=== PATIENT | male | born 1960 | race Caucasian/White ===

== ENCOUNTER → 2016-12-20 | Outpatient (CLI) | payer OTHER ==
--- NOTE | 2016-12-20 15:25 | XR ---
Lumbar spine HISTORY: Pain 3 views of the lumbar spine, correlation to CT lumbar spine 12/05/2015 There is a mild dextroscoliosis centered at the mid lumbar spine. Multilevel spondylosis is present. Lumbar vertebral bodies show preserved height. Loss of disc height present at intervertebral levels. Sclerosis present in the posterior elements. Bone mineralization is maintained. Sclerotic changes at L3-4 with endplate irregularity again noted as well at L4-5. IMPRESSION: Degenerative disc disease, scoliosis, facet arthropathy. Lumbar MRI may be of benefit.
== END | disposition home or self-care (01) ==
LOC: RADXRMAIN 11:42
PROVIDERS: ATTEND Family Medicine
DX: M51.36 Other intervertebral disc degeneration, lumbar region (principal); M46.96 Unspecified inflammatory spondylopathy, lumbar region; M41.9 Scoliosis, unspecified
CPT/HCPCS: 72100

== ENCOUNTER → 2017-01-09 | Outpatient (CLI) | payer OTHER ==
--- NOTE | 2017-01-09 14:40 | MR ---
MR lumbar spine wo con pain Multiplanar, multiecho imaging of the lumbar spine was obtained without contrast on a 3 Iesha magnet. REFERENCE: Previous study dated 01/22/2016. FINDINGS: Paraspinal soft tissues are normal. There is a minimal retrograde listhesis of L4 and L5. Alignment is otherwise normal. The conus ends above the first slice of this study. There is a dextroscoliosis. At T12-L1, the intervertebral foramina are widely patent. There is a bilobed disc displacement. There is mild hypertrophic change and capsulitis within the facets. At L1-2, the intervertebral foramina are well maintained. There is a bilobed disc displacement more p rominent on the left effacing the thecal sac without definite neural compression. There is hypertroph ic change and capsulitis within the facets. At L2-3, the intervertebral foramina are widely maintained. There is a bilobed disc displacement. Thi s hypertrophic change and capsulitis within the facets. There is mild trefoiling of the thecal sac. At L3-4, there is disc space loss and disc desiccation. There is bilateral intervertebral foraminal n arrowing, worse on the left than the right. There is a broad-based disc displacement. There is mild l ateral recess stenosis bilaterally. There are hypertrophic changes in the facets. At L4-5, there is bilateral intervertebral foraminal narrowing, worse on the right than the left. The re is a broad-based disc displacement. This hypertrophic changes in the facets. There is bilateral la teral recess stenosis. At L5-S1, the intervertebral foramina are reasonably well-maintained. There is a broad-based disc dis placement with a tiny central protrusion effacing the thecal sac without definite neural contact. The re is bilateral lateral recess stenosis and there is hypertrophic change in the facets. IMPRESSION: 1. DIFFUSE DEGENERATIVE DISC DISEASE AND FACET ARTHROPATHY. 2. BILATERAL LATERAL RECESS STENOSIS, L4-5 AND L5-S1. 3. TINY CENTRAL PROTRUSION, L5-S1 EFFACING THE THECAL SAC WITHOUT DEFINITE NEURAL COMPRESSION. 4. MULTILEVEL INTERVERTEBRAL FORAMINAL NARROWING.
== END | disposition home or self-care (01) ==
LOC: RADMRIMAIN 13:25
PROVIDERS: ATTEND Family Medicine
DX: M48.07 Spinal stenosis, lumbosacral region (principal); M99.73 Connective tissue and disc stenosis of intervertebral foramina of lumbar region; M51.27 Other intervertebral disc displacement, lumbosacral region; M51.36 Other intervertebral disc degeneration, lumbar region; M46.86 Other specified inflammatory spondylopathies, lumbar region
CPT/HCPCS: 72148

== ENCOUNTER 2017-11-22 21:00 | Emergency (ER) | payer MEDICARE, OTHER ==
[2017-11-22 21:46] VITALS: BP 168/90; PULSE 79; RESP 18; TEMP 98.1
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
--- NOTE | 2017-11-22 22:44 | XR ---
EXAMINATION TYPE: XR foot complete RT DATE OF EXAM: 11/22/2017 COMPARISON: NONE HISTORY: Pain in the right foot TECHNIQUE: 3 views FINDINGS: Metatarsals are intact. I see no fracture nor dislocation. Joint spaces are fairly normal. IMPRESSION: Negative right foot exam
--- NOTE | 2017-11-22 22:44 | XR ---
EXAMINATION TYPE: XR ankle complete RT DATE OF EXAM: 11/22/2017 COMPARISON: NONE HISTORY: Pain in the ankle TECHNIQUE: 3 views FINDINGS: There is intramedullary benito in the right tibia. Ankle mortise is anatomic. I see no fractur e nor dislocation. Joint spaces are fairly normal. IMPRESSION: No acute abnormality. Old healed tibia and fibula fractures.
== END 2017-11-22 22:55 | disposition home or self-care (01) ==
LOC: EC 21:00
DX: S93.401A Sprain of unspecified ligament of right ankle, initial encounter (principal); E78.5 Hyperlipidemia, unspecified; J44.9 Chronic obstructive pulmonary disease, unspecified; K21.9 Gastro-esophageal reflux disease without esophagitis; M19.90 Unspecified osteoarthritis, unspecified site; G62.9 Polyneuropathy, unspecified; G40.909 Epilepsy, unspecified, not intractable, without status epilepticus; I99.9 Unspecified disorder of circulatory system; F17.200 Nicotine dependence, unspecified, uncomplicated; Z86.14 Personal history of Methicillin resistant Staphylococcus aureus infection; Z79.82 Long term (current) use of aspirin; Z79.899 Other long term (current) drug therapy; Z88.0 Allergy status to penicillin; Z91.030 Bee allergy status; W10.9XXA Fall (on) (from) unspecified stairs and steps, initial encounter; Y92.009 Unspecified place in unspecified non-institutional (private) residence as the place of occurrence of the external cause
CPT/HCPCS: 99283

== ENCOUNTER 2019-11-22 01:21 | Emergency (ER) | payer MEDICARE ==
[2019-11-22] MEDS ORDERED: SODIUM CHLORIDE 0.9% 1,000 ML IV STA (01:51)
[2019-11-22] MEDS ORDERED: IPRATROPIUM-ALBUTEROL 3 ML NEB INHALATION STA (01:51)
[2019-11-22] MEDS ORDERED: methylPREDNISolone SOD SUCCI 125 MG/2 ML VIAL IV STA (01:51)
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
[2019-11-22] MEDS ORDERED: AZITHROMYCIN 500 MG in SODIUM CHLORIDE 0.9% 250 ML IVPB ONE (02:00)
[2019-11-22 02:27] LABS: Anisocytosis Slight; Basophils # (A) 0.1 k/uL (0-0.2); Basophils % (A) 2 %; Eosinophils # (A) 0.2 k/uL (0-0.7); Eosinophils % (A) 4 %; HCT 32.6 % (39.0-53.0); HGB 9.4 gm/dL (13.0-17.5); Hypochromasia Marked; Lymphocytes # (A) 1.2 k/uL (1.0-4.8); Lymphocytes % (A) 25 %; MCH 22.7 pg (25.0-35.0); MCHC 28.8 g/dL (31.0-37.0); MCV 78.7 fL (80.0-100.0); Mean Platelet Volume 9.1; Microcytosis Slight; Monocytes # (A) 0.3 k/uL (0-1.0); Monocytes % (A) 6 %; Neutrophils % (A) 62 %; Platelet Count 214 k/uL (150-450); RBC 4.14 m/uL (4.30-5.90); RDW 18.5 % (11.5-15.5); WBC 4.8 k/uL (3.8-10.6)
--- NOTE | 2019-11-22 02:31 | XR ---
EXAMINATION TYPE: XR chest 1V portable DATE OF EXAM: 11/22/2019 COMPARISON: 06/21/2015 HISTORY: Short of breath TECHNIQUE: FINDINGS: Heart is normal. Lungs are clear of infiltrate. There is increased density over the right u pper lobe consistent with calcified costal cartilage. There are no hilar masses. Mediastinum is freddy l. There is no pleural effusion. There is mild pulmonary hyperinflation. Bony thorax is intact. IMPRESSION: There is probably some COPD. No acute lung disease. No change.
[2019-11-22 02:50] LABS: ALT 13 U/L (4-49); African American GFR (CKD) >90 (>60 ml/min/1.73 sqM); Albumin 4.2 g/dL (3.5-5.0); Anion Gap 7 mmol/L; Blood Urea Nitrogen 13 mg/dL (9-20); C Reactive Protein 16.8 mg/L (<10.0); Calcium 8.9 mg/dL (8.4-10.2); Carbon Dioxide 27 mmol/L (22-30); Chloride 104 mmol/L (98-107); Creatine Kinase 572 U/L (55-170); Glucose 133 mg/dL (74-99); Non-African American GFR(CKD) 78 (>60 ml/min/1.73 sqM); Sodium 138 mmol/L (137-145); Total Bilirubin 0.4 mg/dL (0.2-1.3); Total Protein 7.2 g/dL (6.3-8.2)
[2019-11-22 02:51] LABS: INR 1.2 (<1.2); Partial Thromboplastin Time 27.4 sec (22.0-30.0); Prothrombin Time 12.5 sec (9.0-12.0)
[2019-11-22 03:04] LABS: Potassium 4.2 mmol/L (3.5-5.1)
[2019-11-22 03:05] LABS: AST 40 U/L (17-59); Alkaline Phosphatase 49 U/L (38-126); LDH 824 U/L (313-618); Magnesium 1.8 mg/dL (1.6-2.3)
[2019-11-22 03:35] VITALS: TEMP 97.3
[2019-11-22 04:37] VITALS: BP 126/86; PULSE 68; RESP 19
[2019-11-22 12:36] LABS: Ferritin 5.7 ng/mL (22.0-322.0)
== END 2019-11-22 04:37 | disposition home or self-care (01) ==
LOC: EC 01:21
DX: D64.9 Anemia, unspecified (principal); J44.9 Chronic obstructive pulmonary disease, unspecified; K21.9 Gastro-esophageal reflux disease without esophagitis; E78.5 Hyperlipidemia, unspecified; M19.90 Unspecified osteoarthritis, unspecified site; F41.9 Anxiety disorder, unspecified; F32.9 Major depressive disorder, single episode, unspecified; G40.909 Epilepsy, unspecified, not intractable, without status epilepticus; F17.210 Nicotine dependence, cigarettes, uncomplicated; Z79.51 Long term (current) use of inhaled steroids; Z79.899 Other long term (current) drug therapy; Z79.82 Long term (current) use of aspirin; Z79.891 Long term (current) use of opiate analgesic; Z88.0 Allergy status to penicillin; Z91.030 Bee allergy status; Z86.14 Personal history of Methicillin resistant Staphylococcus aureus infection
CPT/HCPCS: 36415; 94640 ×2; 93005; 80053; 82728; 82550; 82553; 83605; 83615; 83735; 85025; 85610; 85730; 86140; 87635; 71045; 99285; 96365; 96375; J2930; J0456

== ENCOUNTER → 2019-12-27 | Outpatient (CLI) | payer MEDICARE ==
--- NOTE | 2019-12-27 19:09 | CT ---
EXAMINATION TYPE: CT abdomen pelvis w con DATE OF EXAM: 12/27/2019 COMPARISON: 04/25/2016 HISTORY: Hematuria. CT DLP: 666.10 mGycm CONTRAST: CT scan of the abdomen and pelvis is performed with Oral Contrast and with IV Contrast, patient injec noble with 100 mL of Isovue M300. FINDINGS: LUNG BASES-: Stable nodularity left lower lobe. No infiltrate. LIVER/GB: No calcified gallstones. No space occupying hepatic lesion. Biliary tree is of normal ca liber. PANCREAS: No inflammation. No distinct mass. SPLEEN: No splenic enlargement. No lesion seen. ADRENALS: No nodule. No thickening. KIDNEYS/BLADDER: No hydronephrosis. 1.2 x 1.0 cm calculus lower pole left calyx of left kidney. No a dditional renal calculi seen. Within the urinary bladder lumen there is a 1.9 cm calculus at the left of midline and a larger 2.5 cm calculus to the right of midline. No distinct renal mass. Distention is noted of the urinary bladder. BOWEL: Normal appendix. Normal bowel caliber. No inflammation. GENITAL ORGANS: Prostate glandular calcifications noted. LYMPH NODES: No greater than 1cm abdominal or pelvic lymph nodes are appreciated. AORTA: Abdominal aortic bypass graft identified. OSSEOUS STRUCTURES: No significant abnormality is seen. OTHER: No significant additional abnormality is seen. IMPRESSION: 1. 1.2 x 1.0 cm calculus lower pole left calyx of left kidney. No additional renal calculi seen. 2. Within the urinary bladder lumen there is a 1.9 cm calculus at the left of midline and a larger 2. 5 cm calculus to the right of midline.
== END | disposition home or self-care (01) ==
LOC: RADCTMAIN 16:38
PROVIDERS: ATTEND Family Medicine
DX: N20.0 Calculus of kidney (principal); N21.0 Calculus in bladder
CPT/HCPCS: 74177; Q9967 ×2

== ENCOUNTER 2020-02-29 17:58 | Emergency (ER) | payer MEDICARE ==
[2020-02-29 18:12] VITALS: TEMP 98.3
--- NOTE | 2020-02-29 18:57 | XR ---
EXAMINATION TYPE: XR elbow complete LT DATE OF EXAM: 02/29/2020 CLINICAL HISTORY: pain TECHNIQUE: Frontal, lateral and oblique images of the left elbow are obtained. COMPARISON: None. FINDINGS: There is no acute fracture/dislocation evident of the elbow. No abnormal fat pad signs ar e seen. The overlying soft tissue appears unremarkable. IMPRESSION: There is no acute fracture or dislocation of the elbow. ICD 10 NO FRACTURE, INITIAL EVALUATION
[2020-02-29] MEDS ORDERED: CLINDAMYCIN 150 MG CAP PO STA (19:26)
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
[2020-02-29 19:44] VITALS: BP 129/86; PULSE 69; RESP 16
--- NOTE | 2020-03-01 09:59 | CDI ---
Dear Vanessa Valencia, Please do addendum procedure note for drainage of elbow bursa. Thank you, Michael Pelayo Hearing Aid Consultant If you have any questions, please contact [employer] at [phone] [facility]
== END 2020-02-29 19:48 | disposition home or self-care (01) ==
LOC: EC 17:58
DX: M70.32 Other bursitis of elbow, left elbow (principal); F41.9 Anxiety disorder, unspecified; F32.9 Major depressive disorder, single episode, unspecified; J44.9 Chronic obstructive pulmonary disease, unspecified; I20.9 Angina pectoris, unspecified; E78.5 Hyperlipidemia, unspecified; M19.90 Unspecified osteoarthritis, unspecified site; G40.909 Epilepsy, unspecified, not intractable, without status epilepticus; I73.9 Peripheral vascular disease, unspecified; F17.200 Nicotine dependence, unspecified, uncomplicated; Z79.82 Long term (current) use of aspirin; Z79.899 Other long term (current) drug therapy; Z88.0 Allergy status to penicillin; Z91.030 Bee allergy status; Z86.14 Personal history of Methicillin resistant Staphylococcus aureus infection
CPT/HCPCS: 23931; 87070; 87205; 99283

== ENCOUNTER 2020-03-27 10:33 | Day surgery (SDC) | payer MEDICARE ==
[2020-03-24 13:12] VITALS: BMI 22.8
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
[~2020-03-27 10:33] MED LIST: CIPROFLOXACIN/DEXTROSE PMX 400 MG in DEXTROSE/WATER 1 200ML.BAG IVPB ONE; LACTATED RINGERS 1,000 ML IV SCH; MORPHINE SULFATE 2 MG/ML SYRINGE IV PRN
[2020-03-27] MEDS ORDERED: ONDANSETRON 4 MG/2 ML VIAL ONE (11:14)
[2020-03-27] MEDS ORDERED: DEXAMETHASONE SOD PHOSPHATE 10 MG/ML 1 ML VIAL IV ONE (11:24)
[2020-03-27] MEDS ORDERED: ONDANSETRON 4 MG/2 ML VIAL IVP ONE (11:24)
[2020-03-27] MEDS ORDERED: LIDOCAINE 1% (10MG/ML) FOR IV START INTRADERMA ONE (11:24)
[2020-03-27] MEDS ORDERED: PHENYLEPHRINE-0.9% NACL SYG 1 MG/10 ML SYRINGE ONE (12:24)
[2020-03-27] MEDS ORDERED: SUCCINYLCHOLINE CHLORIDE 100 MG/5 ML SYR IV ONE (12:24)
[2020-03-27] MEDS ORDERED: fentaNYL (PF) 50 MCG/ML 2 ML AMP ONE (12:24)
[2020-03-27] MEDS ORDERED: ePHEDrine SULFATE/0.9% NACL/PF 50 MG/5 ML SYRINGE IV ONE (12:24)
[2020-03-27] MEDS ORDERED: PROPOFOL 10 MG/ML 20 ML VIAL IV ONE (12:24)
[2020-03-27] MEDS ORDERED: LIDOCAINE 1% INJ 10MG/ML (20 ML MDV) ONE (12:24)
[2020-03-27] MEDS ORDERED: GLYCOPYRROLATE 0.2 MG/ML 2 ML VIAL ONE (12:24)
[2020-03-27] MEDS ORDERED: MIDAZOLAM 2 MG/2 ML VIAL ONE (12:24)
[2020-03-27] MEDS ORDERED: LACTATED RINGERS 1,000 ML IV ONE ×2 (13:13→14:07)
--- NOTE | 2020-03-27 14:32 | P.OP ---
Date of Procedure: 03/27/20 Preoperative Diagnosis: bladder stone Postoperative Diagnosis: same Procedure(s) Performed: cystolitholapaxy (greater than 2.5 cm) Implants: none Anesthesia: CHRISTINA Surgeon: Ace Harden Estimated Blood Loss (ml): 20 Pathology: other (bladder stone) Condition: stable Disposition: PACU Indications for Procedure: Mr Torrez is 59-year-old male with history of two large bladder stone. On CT he has 2 large bladder stones one measured 1.9 cm and the other measured 2.5 cm. Cystoscopy was performed which confirmed this finding. Discussed with him option of cystolithalopaxy and cystolithotimy. Discussed the risk and benefit of each approach. He agreed to proceed with cystolithalopaxy. discussed the risk of bleeding and infection. He obtained clearance for vascular surgery to stop his anticoagulation for surgery. I also discussed with him risk from anesthesia. He understood all risks and agreed to proceed Operative Findings: 2 large bladder stones Description of Procedure: patient was brought to the operating room. General anesthesia was induced. He was prepped and draped in sterile fashion and placemed in dorsal lithotomy position. patient had narrowing and the navisularis fossa, using the male sounds the fossa was dilated to 28-British. Next a cystoscope fitted with a 25 sheath was inserted per urethra, cystoscopy was performed which showed 2 large bladder stones but no abnormality within the bladder. Of note he had bilateral obstructing lateral lobes without a median lobe. At this time attention was carried to the stones. Using the holmium laser the stone was fragmented into smaller fragments. fragments were removed using the Faraz evacuator. Repeat cystoscopy showed no sizable fragments Or evidence of bleeding. At this time a 20-British catheter was placed with return of light pink urine. The catheter irrigated without issue. The patient tolerated procedure well was extubated and taken to PACU in stable condition
[2020-03-27 14:33] VITALS: TEMP 98
[2020-03-27] MEDS ORDERED: HYDROmorphone 0.5 MG/0.5 ML SYRINGE IVP ONE (14:55)
[2020-03-27] MEDS ORDERED: hydrALAZINE HCL 20 MG/ML 1 ML VIAL IVP ONE (15:20)
[2020-03-27 15:26] VITALS: RESP 16
[2020-03-27 16:12] VITALS: BP 151/86; PULSE 95
== END 2020-03-27 16:36 | disposition home or self-care (01) ==
LOC: OR 10:33
PROVIDERS: ATTEND Urology
DX: N21.0 Calculus in bladder (principal); N32.89 Other specified disorders of bladder; J44.9 Chronic obstructive pulmonary disease, unspecified; K21.9 Gastro-esophageal reflux disease without esophagitis; E78.5 Hyperlipidemia, unspecified; M19.90 Unspecified osteoarthritis, unspecified site; G40.909 Epilepsy, unspecified, not intractable, without status epilepticus; I73.9 Peripheral vascular disease, unspecified; F41.9 Anxiety disorder, unspecified; F32.9 Major depressive disorder, single episode, unspecified; F17.200 Nicotine dependence, unspecified, uncomplicated; K08.89 Other specified disorders of teeth and supporting structures; I10 Essential (primary) hypertension; Z88.0 Allergy status to penicillin; Z91.030 Bee allergy status; Z98.890 Other specified postprocedural states; Z86.14 Personal history of Methicillin resistant Staphylococcus aureus infection; Z79.82 Long term (current) use of aspirin; Z79.899 Other long term (current) drug therapy; Z79.01 Long term (current) use of anticoagulants; Z79.02 Long term (current) use of antithrombotics/antiplatelets; Z82.3 Family history of stroke; Z83.3 Family history of diabetes mellitus; Z82.49 Family history of ischemic heart disease and other diseases of the circulatory system; Z82.5 Family history of asthma and other chronic lower respiratory diseases; Z80.8 Family history of malignant neoplasm of other organs or systems; Z81.1 Family history of alcohol abuse and dependence
CPT/HCPCS: 82365; 52318; 52317; J2250; J0360; J1100; J2405; J2001; J3010; J0744; J2370; J0330; J2704; J1170

== ENCOUNTER → 2020-04-18 | Outpatient (CLI) | payer MEDICARE | END | disposition home or self-care (01) | LOC: LABWHC1 08:44 | PROVIDERS: ATTEND Family Medicine | DX: Z20.828 Contact with and (suspected) exposure to other viral communicable diseases (principal) | CPT/HCPCS: U0003; C9803 ==

== ENCOUNTER → 2020-06-16 | Outpatient (CLI) | payer MEDICARE ==
[2020-06-16 12:11] LABS: Anisocytosis Slight; Basophils # (A) 0.1 k/uL (0-0.2); Basophils % (A) 2 %; Eosinophils # (A) 0.2 k/uL (0-0.7); Eosinophils % (A) 2 %; HCT 43.9 % (39.0-53.0); HGB 13.9 gm/dL (13.0-17.5); Lymphocytes # (A) 1.2 k/uL (1.0-4.8); Lymphocytes % (A) 14 %; MCH 28.4 pg (25.0-35.0); MCHC 31.6 g/dL (31.0-37.0); MCV 89.8 fL (80.0-100.0); Mean Platelet Volume 8.4; Monocytes # (A) 0.4 k/uL (0-1.0); Monocytes % (A) 5 %; Neutrophils # (A) 6.1 k/uL (1.3-7.7); Neutrophils % (A) 76 %; Platelet Count 248 k/uL (150-450); RBC 4.89 m/uL (4.30-5.90); RDW 16.2 % (11.5-15.5); WBC 8.1 k/uL (3.8-10.6)
[2020-06-16 12:19] LABS: Appearance,Urine Turbid (Clear); Bilirubin,Urine Negative (Negative); Blood,Urine Moderate (Negative); Color,Urine Yellow; Glucose,Urine (UA) Negative (Negative); Ketones,Urine Negative (Negative); Leukocyte Esterase,Urine Large (Negative); Mucus,Urine Rare /hpf; Nitrite,Urine Negative (Negative); PH, Urine 6.5 (5.0-8.0); Protein,Urine 1+ (Negative); RBC,Urine 60 /hpf (0-5); Specific Gravity,Urine 1.012 (1.001-1.035); Squamous Epithelial Cell,Urine 1 /hpf (0-4); Urobilinogen,Urine <2.0 mg/dL (<2.0); WBC,Urine >182 /hpf (0-5)
[2020-06-16 19:45] LABS: African American GFR (CKD) 85.9 (60.0-200.0); Anion Gap 5.4 mmol/L (4.00-12.00); BUN/Creat Ratio 15.45 Ratio (12.00-20.00); Calcium 9.5 mg/dL (8.7-10.3); Carbon Dioxide 29.6 mmol/L (21.6-31.8); Non-African American GFR(CKD) 74.1 (60.0-200.0); Potassium 3.9 mmol/L (3.5-5.5)
== END | disposition home or self-care (01) ==
LOC: LABWHC1 10:10
PROVIDERS: ATTEND Urology
DX: N40.1 Benign prostatic hyperplasia with lower urinary tract symptoms (principal); Z88.0 Allergy status to penicillin; Z91.030 Bee allergy status
CPT/HCPCS: 36415; 80048; 81001; 85025; 87086

== ENCOUNTER 2021-01-25 00:44 | Inpatient (IN) | payer MEDICARE ==
[2021-01-25] MEDS ORDERED: ACETAMINOPHEN TAB 500 MG TAB PO STA (01:05)
[2021-01-25] MEDS ORDERED: IBUPROFEN 600 MG TAB PO STA (01:05)
[2021-01-25] MEDS ORDERED: ONDANSETRON 4 MG/2 ML VIAL IVP STA (01:07)
[2021-01-25] MEDS ORDERED: SODIUM CHLORIDE 0.9% 500 ML 500 ML IV SCH (01:15)
[2021-01-25 01:55] LABS: HCT 41.4 % (39.0-53.0); HGB 13.2 gm/dL (13.0-17.5); MCH 30.4 pg (25.0-35.0); MCHC 31.9 g/dL (31.0-37.0); MCV 95.4 fL (80.0-100.0); Mean Platelet Volume 8.4; Platelet Count 231 k/uL (150-450); RBC 4.34 m/uL (4.30-5.90); RDW 15.6 % (11.5-15.5); WBC 12.1 k/uL (3.8-10.6)
[2021-01-25 01:58] LABS: INR 1.2 (<1.2); Partial Thromboplastin Time 23.6 sec (22.0-30.0); Prothrombin Time 12.3 sec (9.0-12.0)
[2021-01-25 02:04] LABS: ALT 14 U/L (4-49); AST 30 U/L (17-59); African American GFR (CKD) >90 (>60 ml/min/1.73 sqM); Albumin 4.2 g/dL (3.5-5.0); Alkaline Phosphatase 60 U/L (38-126); Anion Gap 9 mmol/L; Blood Urea Nitrogen 11 mg/dL (9-20); Calcium 9.2 mg/dL (8.4-10.2); Carbon Dioxide 27 mmol/L (22-30); Chloride 100 mmol/L (98-107); Glucose 107 mg/dL (74-99); Non-African American GFR(CKD) 83 (>60 ml/min/1.73 sqM); Potassium 3.4 mmol/L (3.5-5.1); Sodium 136 mmol/L (137-145); Total Bilirubin 0.7 mg/dL (0.2-1.3); Total Protein 6.5 g/dL (6.3-8.2)
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
--- NOTE | 2021-01-25 02:23 | CT ---
EXAMINATION TYPE: CT chest angio for PE DATE OF EXAM: 01/25/2021 COMPARISON: 08/01/2014 HISTORY: Chest pain CT DLP: 294.9 mGycm Automated exposure control for dose reduction was used. CONTRAST: Performed with IV Contrast, patient injected with 80 mL of Isovue 370. There are 3-D post processed images. There is diffuse bullous pulmonary emphysema. There is some airspace consolidation in the left lower lobe. There is some patchy coarse linear density and nodularity in the right upper lobe. There is no mediastinal adenopathy. There are no hilar masses. Aortic arch appears intact. There is no mediastina l adenopathy. There are a few paratracheal lymph nodes that measure up to 10 mm. There is normal contrast opacification of the thoracic aorta. There is no aneurysm or dissection. The ascending aorta measures 3.4 cm. There is normal contrast opacification of the pulmonary arteries. There are no filling defects. There are some enlarged right bronchial lymph nodes that measure 1.3 cm. There are a few left lower lobe e nlarged bronchial lymph nodes. The thoracic spine is intact. The sternum is intact. IMPRESSION: Bullous pulmonary emphysema. Chronic nodular infiltrate right upper lobe consistent with scarring and has very similar appearance to the old CT scan. I see no evidence of an enlarging pulmonary mass. There is extensive left lower lobe pneumonia that is new compared to old exam. No evidence of pulmonary embolism. There are mediastinal and bronchial lymph nodes suggestive of inflammatory disease.
[2021-01-25] MEDS ORDERED: cefTRIAXone IN SWFI 1,000 MG/10 ML SYRINGE IVP STA ×2 (02:29→02:37)
[2021-01-25] MEDS ORDERED: AZITHROMYCIN 500 MG in SODIUM CHLORIDE 0.9% 250 ML IVPB ONE (02:29)
[2021-01-25] MEDS ORDERED: PNEUMONIA PROTOCOL UTILIZED 1 EACH MISC PO PRN (02:35)
[2021-01-25 02:36] LABS: Appearance,Urine Bloody (Clear)
[2021-01-25 02:37] LABS: Color,Urine Red
[2021-01-25 02:39] LABS: Mucus,Urine Few /hpf; RBC,Urine >182 /hpf (0-5)
[2021-01-25] MEDS ORDERED: SODIUM CHLORIDE 0.9% 500 ML 500 ML IV STA (02:39)
[2021-01-25] MEDS ORDERED: SODIUM CHLORIDE 0.9% 1,000 ML IV STA ×2 (02:44→03:07)
[2021-01-25 02:47] LABS: Band Neutrophils % 50 %; Lymphocytes # (M) 0.48 k/uL (1.0-4.8); Monocytes # (M) 0.36 k/uL (0-1.0); Neutrophils % (M) 43 %; Nucleated Red Blood Cells 0 /100 WBC (0-0); Total Cells Counted 200
[2021-01-25 02:48] LABS: Toxic Granulation Present
[2021-01-25] MEDS: SODIUM CHLORIDE 0.9% 1,000 ML IV SCH ×3 (02:55→21:29)
[2021-01-25] MEDS ORDERED: IPRATROPIUM-ALBUTEROL 3 ML NEB INHALATION PRN (08:46)
[2021-01-25] MEDS: IPRATROPIUM-ALBUTEROL 3 ML NEB INHALATION SCH ×4 (09:02→20:33)
[2021-01-25] MEDS: methylPREDNISolone SOD SUCCI 125 MG/2 ML VIAL IV SCH ×3 (09:19→21:24)
[2021-01-25 11:05] LABS: Glucose,Whole Blood 119 mg/dL (75-99)
[2021-01-25] MEDS: INSULIN ASPART (NovoLOG) 100 UNIT/ML VIAL SQ SCH ×3 (12:02→21:22)
[2021-01-25] MEDS ORDERED: ALPRAZolam 1 MG TAB PO PRN (12:34)
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
[2021-01-25] MEDS: PANTOPRAZOLE 40 MG TABLET PO SCH (14:35)
[2021-01-25] MEDS: RIVAROXABAN 20 MG TAB PO SCH (14:35)
[2021-01-25] MEDS: METOPROLOL TARTRATE 50 MG TAB PO SCH ×2 (14:35→21:29)
[2021-01-25] MEDS: ASPIRIN 81 MG PO SCH (14:35)
[2021-01-25 16:47] LABS: Glucose,Whole Blood 153 mg/dL (75-99)
[2021-01-25] MEDS: GABAPENTIN 300 MG CAP PO SCH ×2 (17:00→21:23)
[2021-01-25] MEDS: CYCLOBENZAPRINE 10 MG TAB PO SCH ×2 (17:00→21:22)
[2021-01-25] MEDS: BUDESONIDE 1 MG/2 ML NEBU INHALATION SCH (20:33)
[2021-01-25 20:51] LABS: Glucose,Whole Blood 179 mg/dL (75-99)
[2021-01-25] MEDS ORDERED: ATORVASTATIN 10 MG TAB PO SCH (21:00)
[2021-01-25] MEDS ORDERED: ESCITALOPRAM 10 MG TAB PO SCH (21:00)
[2021-01-25] MEDS ORDERED: FERROUS SULFATE 325 MG TAB PO SCH (21:00)
[2021-01-25 21:37] VITALS: RESP 18
[2021-01-25] MEDS ORDERED: AZITHROMYCIN 500 MG in SODIUM CHLORIDE 0.9% 250 ML IVPB SCH (22:00)
[2021-01-26] MEDS: methylPREDNISolone SOD SUCCI 125 MG/2 ML VIAL IV SCH ×2 (02:41→08:03)
[2021-01-26 06:58] LABS: Glucose,Whole Blood 158 mg/dL (75-99)
[2021-01-26 07:38] VITALS: BP 114/72; TEMP 98.4
[2021-01-26] MEDS: INSULIN ASPART (NovoLOG) 100 UNIT/ML VIAL SQ SCH (08:00)
[2021-01-26] MEDS: PANTOPRAZOLE 40 MG TABLET PO SCH (08:03)
[2021-01-26] MEDS: METOPROLOL TARTRATE 50 MG TAB PO SCH (08:03)
[2021-01-26] MEDS: ASPIRIN 81 MG PO SCH (08:03)
[2021-01-26] MEDS: CYCLOBENZAPRINE 10 MG TAB PO SCH (08:04)
[2021-01-26] MEDS: SODIUM CHLORIDE 0.9% 1,000 ML IV SCH (08:04)
[2021-01-26] MEDS: GABAPENTIN 300 MG CAP PO SCH (08:04)
[2021-01-26] MEDS: RIVAROXABAN 20 MG TAB PO SCH (08:05)
[2021-01-26] MEDS: BUDESONIDE 1 MG/2 ML NEBU INHALATION SCH (08:06)
[2021-01-26] MEDS: IPRATROPIUM-ALBUTEROL 3 ML NEB INHALATION SCH ×2 (08:06→12:03)
[2021-01-26] MEDS ORDERED: TAMSULOSIN 0.4 MG CAP.ER.24H PO SCH (09:00)
[2021-01-26] MEDS ORDERED: FENOFIBRATE 160 MG TAB PO SCH (09:00)
--- NOTE | 2021-01-26 09:03 | XR ---
EXAMINATION TYPE: XR chest 2V DATE OF EXAM: 01/26/2021 COMPARISON: Chest x-ray 11/22/2019, chest CT 01/25/2021 HISTORY: Pneumonia TECHNIQUE: Frontal and lateral views of the chest are obtained. FINDINGS: There is airspace disease in the left lower lobe. No evident pneumothorax or pleural effus ion. Prominent lung volumes suggest underlying COPD. Cardiac mediastinal silhouette is stable. Aorta is dense. Question some patchy density in the right mid lung. There is flattening the hemidiaphragms and increased AP diameter of the chest. IMPRESSION: Left lower lobe pneumonia, there is underlying emphysema, right upper lobe shows questio nable scarring
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
[2021-01-26 11:36] LABS: Glucose,Whole Blood 125 mg/dL (75-99)
[2021-01-26 12:16] VITALS: PULSE 84
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
[2021-01-29 07:57] LABS: Mycoplasma IgG Antibody (EIA) 1.74 INDEX (<=0.90); Mycoplasma IgM Antibody 0.13 INDEX (<=0.90)
== END 2021-01-26 12:20 | disposition home or self-care (01) | DRG 871 ==
LOC: EC 00:44 → 4SSUR 04:34 → OBSVTOIN 11:38
PROVIDERS: ADMIT Internal Medicine Geriatric Medicine; ATTEND Internal Medicine Geriatric Medicine
DX: A40.3 Sepsis due to Streptococcus pneumoniae (principal); J13 Pneumonia due to Streptococcus pneumoniae; E87.2 Acidosis; J43.9 Emphysema, unspecified; I73.9 Peripheral vascular disease, unspecified; J45.20 Mild intermittent asthma, uncomplicated; Z20.822 Contact with and (suspected) exposure to COVID-19; E78.5 Hyperlipidemia, unspecified; R31.9 Hematuria, unspecified; I10 Essential (primary) hypertension; N40.0 Benign prostatic hyperplasia without lower urinary tract symptoms; K21.9 Gastro-esophageal reflux disease without esophagitis; R41.3 Other amnesia; F41.1 Generalized anxiety disorder; F32.9 Major depressive disorder, single episode, unspecified; M15.9 Polyosteoarthritis, unspecified; F17.210 Nicotine dependence, cigarettes, uncomplicated; Z71.6 Tobacco abuse counseling; Z79.82 Long term (current) use of aspirin; Z79.01 Long term (current) use of anticoagulants; Z79.899 Other long term (current) drug therapy; Z86.69 Personal history of other diseases of the nervous system and sense organs; Z87.39 Personal history of other diseases of the musculoskeletal system and connective tissue; Z87.81 Personal history of (healed) traumatic fracture; Z86.14 Personal history of Methicillin resistant Staphylococcus aureus infection; Z86.79 Personal history of other diseases of the circulatory system; Z87.442 Personal history of urinary calculi; Z88.0 Allergy status to penicillin; Z91.030 Bee allergy status; Z83.3 Family history of diabetes mellitus; Z82.3 Family history of stroke; Z82.5 Family history of asthma and other chronic lower respiratory diseases; Z80.9 Family history of malignant neoplasm, unspecified; Z81.1 Family history of alcohol abuse and dependence
CPT/HCPCS: 36415; 71046; 71275; 80053; 81001; 83605; 83880; 84484; 85025; 85610; 85730; 86738; 87040; 87070; 87077; 87086; 87186; 87205; 87635; 93005; 94640; 96361; 96374; 99285

== ENCOUNTER 2021-04-02 13:13 | Emergency (ER) | payer MEDICARE ==
[2021-04-02 13:38] VITALS: TEMP 98.1
[2021-04-02] MEDS ORDERED: dexAMETHasone 4 MG TAB PO STA (13:50)
[2021-04-02] MEDS ORDERED: MORPHINE SULFATE 4 MG/ML SYRINGE IM STA (13:52)
--- NOTE | 2021-04-02 14:06 | XR ---
EXAMINATION TYPE: XR chest 1V portable DATE OF EXAM: 04/02/2021 COMPARISON: Chest x-ray 01/26/2021, CT chest 08/01/2014 HISTORY: Cough, fever and shortness of breath TECHNIQUE: Single frontal view of the chest is obtained. FINDINGS: There is improvement in aeration compared to chest x-ray in the left lower lobe, apical pl eural thickening and scarring is again noted. Cardiac mediastinal silhouette is stable. No evident pn eumothorax or pleural effusion. Postoperative changes noted to the left shoulder stable. IMPRESSION: Improvement in aeration compared to prior exam. Follow-up as indicated.
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
[2021-04-02 16:25] VITALS: BP 128/80; PULSE 63; RESP 18
== END 2021-04-02 16:24 | disposition home or self-care (01) ==
LOC: EC 13:13
DX: J00 Acute nasopharyngitis [common cold] (principal); J45.909 Unspecified asthma, uncomplicated; K21.9 Gastro-esophageal reflux disease without esophagitis; E78.5 Hyperlipidemia, unspecified; M19.90 Unspecified osteoarthritis, unspecified site; G40.909 Epilepsy, unspecified, not intractable, without status epilepticus; F41.9 Anxiety disorder, unspecified; F32.9 Major depressive disorder, single episode, unspecified; F12.90 Cannabis use, unspecified, uncomplicated; Z79.82 Long term (current) use of aspirin; Z88.0 Allergy status to penicillin; Z87.891 Personal history of nicotine dependence; Z79.899 Other long term (current) drug therapy; Z20.822 Contact with and (suspected) exposure to COVID-19
CPT/HCPCS: 99285; 96372; 87636; 71045; J8540; J2270

== ENCOUNTER → 2021-09-26 | Outpatient (CLI) | payer MEDICARE ==
--- NOTE | 2021-09-26 14:08 | CT ---
EXAMINATION TYPE: CT urogram wo/w con DATE OF EXAM: 09/26/2021 INDICATION: Gross hematuria. Pelvic pain. CT DLP: 1856 mGy.cm Automated Exposure Control for Dose Reduction was Utilized. TECHNIQUE AND CONTRAST: CT scan of the abdomen and pelvis is performed without and with IV Contrast, as per CT urogram protoc ol. The patient injected with 100 mL of Isovue M300. 3-D images were generated on a separate workstat ion and reviewed. COMPARISON: CT dated 12/27/2019 FINDINGS: A nonobstructing stone is seen at the lower pole of the left kidney measuring 10 x 17 x 22 mm. No oth er definite radiodense urinary calculi. No hydroureter or hydronephrosis. 11 mm slightly hyperdense l esion is seen at the medial aspect of the lower pole of the left kidney just inferior to the stone me asuring up to 2.6 cm and demonstrates definite enhancement in the postcontrast images. On retrospect review of the previous CT scan, this lesion measured 10 [address] December [address] CT scan. No other definite left renal lesion identified. Transverse lie of the right kidney with tiny simple r enal cyst. Unremarkable right kidney otherwise. No gross ureteric lesion identified. Slightly thicken ed irregular urinary bladder wall, nonspecific. Recommend correlation with urinalysis results and cyt ology to rule out subtle urinary bladder lesion. Prostatic markers/surgical clips. Unremarkable semin al vesicles. The gallbladder is not distended. Unremarkable liver, spleen, pancreas and adrenals. Arterial atheros clerotic calcification with previous aortobifemoral bypass grafts, suboptimally assessed by this CT s can. Unremarkable nondistended stomach, duodenum and small bowel. No gross colonic abnormality. Small fat-containing umbilical hernia. Small bilateral fat-containing inguinal hernias. No suspicious lymphadenopathy or sizable ascites. CO PD changes are seen in the lung bases. Left lung base nodule measuring 6 mm stable. Marked degenerati ve changes at L3-4 and to a lesser extent L5-S1 levels. Dextroscoliosis of the lumbar spine. Sequela of chronic fracture of the right iliac bone. IMPRESSION: Left lower pole nonobstructing stone measuring up to 2.2 cm as described above. More inferior left lo wer pole renal enhancing lesion as described above, cystic neoplasm cannot be excluded. Recommend uro logy consultation. Further MRI assessment can be considered. Other incidental findings as described a tami.
== END | disposition home or self-care (01) ==
LOC: RADCTMAIN 10:42
PROVIDERS: ATTEND Urology
DX: N20.0 Calculus of kidney (principal); N28.89 Other specified disorders of kidney and ureter
CPT/HCPCS: 74178; 74400; Q9967

== ENCOUNTER → 2021-11-03 | Outpatient (CLI) | payer MEDICARE ==
--- NOTE | 2021-11-05 15:23 | MR ---
EXAMINATION TYPE: MR kidney wo/w con DATE OF EXAM: 11/03/2021 COMPARISON: CT 09/26/2021 HISTORY: Left renal mass. CONTRAST: Standard multiplanar, multisequence MRI departmental protocol images were obtained without contrast a nd with 7 mL intravenous Gadavist gadolinium contrast. FINDINGS: There is a partially enhancing mass lower pole left kidney measuring 2.3 x 2.4 cm suspicious for Neop lasm. No additional renal masses are identified. Low lying right kidney. Nonobstructing calculus lowe r pole left kidney. The liver, gallbladder, pancreas, adrenal glands and spleen appear to be within normal limits. No altagracia dence for retroperitoneal adenopathy. Renal vein is unremarkable. IMPRESSION: Partially enhancing mass lower pole left kidney as suspicious for neoplasm.
== END | disposition home or self-care (01) ==
LOC: RADMRIMAIN 11:11
PROVIDERS: ATTEND Urology
DX: N28.89 Other specified disorders of kidney and ureter (principal)
CPT/HCPCS: 74183; A9585

== ENCOUNTER → 2021-11-28 | Outpatient (CLI) | payer MEDICARE ==
[2021-11-28 23:35] LABS: Appearance,Urine Clear (Clear); Bilirubin,Urine Negative (Negative); Blood,Urine Large (Negative); Color,Urine Yellow (Yellow); Ketones,Urine Negative (Negative); Nitrite,Urine Negative (Negative); Specific Gravity,Urine 1.007 (1.001-1.030); Urobilinogen,Urine 0.2 (0.2,1.0)
[2021-11-28 23:44] LABS: Bacteria,Urine 1+ /HPF (None Seen)
[2021-11-29 01:43] LABS: Basophils # (A) 0.09 X 10*3/uL (0.00-0.10); Basophils % (A) 2.2 %; Eosinophils # (A) 0.04 X 10*3/uL (0.04-0.35); HCT 40.9 % (39.6-50.0); HGB 12.4 g/dL (13.0-17.0); Immature Grans, Automated 0 %; Lymphocytes # (A) 0.89 X 10*3/uL (0.90-5.00); Lymphocytes % (A) 21.6 %; MCH 28.1 pg (27.0-32.0); MCHC 30.3 g/dL (32.0-37.0); MCV 92.5 fL (80.0-97.0); Mean Platelet Volume 11.3 fL (9.5-12.2); Monocytes # (A) 0.37 X 10*3/uL (0.20-1.00); NRBC Per 100 WBC 0 /100 WBCS (0.0-0.0); Neutrophils # (A) 2.73 X 10*3/uL (1.80-7.70); Neutrophils % (A) 66.2 %; Platelet Count 320 X 10*3/uL (140-440); RBC 4.42 X 10*6/uL (4.40-5.60); RDW 14.5 % (11.5-14.5); WBC 4.12 X 10*3/uL (4.50-10.00)
[2021-11-29 03:11] LABS: African American GFR (CKD) 88.6 (60.0-200.0); Anion Gap 8.8 mmol/L (10.00-18.00); BUN/Creat Ratio 9.81 Ratio (12.00-20.00); Blood Urea Nitrogen 10.4 mg/dL (9.0-27.0); Calcium 9.3 mg/dL (8.7-10.3); Carbon Dioxide 28.2 mmol/L (20.0-27.5); Non-African American GFR(CKD) 76.4 (60.0-200.0); Potassium 4.8 mmol/L (3.5-5.5)
== END | disposition home or self-care (01) ==
LOC: LABPAT 14:32
PROVIDERS: ATTEND Urology
DX: Z01.812 Encounter for preprocedural laboratory examination (principal); N20.0 Calculus of kidney
CPT/HCPCS: 80048; 81001; 85025; 87086

== ENCOUNTER 2021-12-06 09:48 | Observation (INO) | payer MEDICARE, OTHER ==
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
[2021-12-05 09:40] VITALS: BMI 19.2
[~2021-12-06 09:48] MED LIST changes: -CIPROFLOXACIN/DEXTROSE PMX 400 MG in DEXTROSE/WATER 1 200ML.BAG IVPB ONE; +CLINDAMYCIN 600 MG in DEXTROSE 5% IN WATER 50 ML IVPB PRN; +DEXAMETHASONE SOD PHOSPHATE 4 MG/ML 1 ML VIAL IV ONE; +GENTAMICIN 120 MG in SODIUM CHLORIDE 0.9% 100 ML IVPB PRN; +HYDROmorphone 0.5 MG/0.5 ML SYRINGE IVP PRN; -LACTATED RINGERS 1,000 ML IV SCH; -MORPHINE SULFATE 2 MG/ML SYRINGE IV PRN; +ONDANSETRON 4 MG/2 ML VIAL IVP ONE
--- NOTE | 2021-12-06 10:20 | XR ---
EXAMINATION TYPE: XR KUB DATE OF EXAM: 12/06/2021 COMPARISON: 12/27/2019 HISTORY: Pain TECHNIQUE: One view abdominal series FINDINGS: The osseous structures are intact. The bowel gas pattern is nonspecific. Postsurgical change involvi ng the pelvis. Tiny punctate calcifications could represent bladder calculi. Degenerative changes of the spine. Large left renal calculus measuring 2.4 cm.. IMPRESSION: 1. There is a 2.4 cm left renal calculus..
[2021-12-06] MEDS: LACTATED RINGERS 1,000 ML IV SCH (10:23)
[2021-12-06] MEDS ORDERED: ROCURONIUM 10 MG/ML (5 ML VIAL) IV ONE (11:08)
[2021-12-06] MEDS ORDERED: PROPOFOL 10 MG/ML 20 ML VIAL IV ONE (11:08)
[2021-12-06] MEDS ORDERED: GLYCOPYRROLATE 0.2 MG/ML 2 ML VIAL ONE (11:08)
[2021-12-06] MEDS ORDERED: LIDOCAINE 2% INJ 20 MG/ML (2 ML VIAL) ONE (11:08)
[2021-12-06] MEDS ORDERED: ePHEDrine 50 MG/ML 1 ML VIAL ONE (11:08)
[2021-12-06] MEDS ORDERED: PHENYLEPHRINE-0.9% NACL SYG 1,000 MCG/10 ML SYRINGE ONE (11:08)
[2021-12-06] MEDS ORDERED: MIDAZOLAM 2 MG/2 ML VIAL ONE (11:08)
[2021-12-06] MEDS ORDERED: fentaNYL (PF) 50 MCG/ML 2 ML AMP ONE (11:08)
[2021-12-06] MEDS ORDERED: HYDROmorphone (PF) 1 MG/ML ONE (11:08)
[2021-12-06] MEDS ORDERED: SUCCINYLCHOLINE CHLORIDE VIAL 200 MG/10 ML VIAL IV ONE (11:08)
[2021-12-06] MEDS ORDERED: NEOSTIGMINE 1 MG/ML 10 ML VIAL ONE (11:08)
[2021-12-06] MEDS ORDERED: IOPAMIDOL-370 50ML BTL IRRIGATION ONE (11:26)
[2021-12-06] MEDS ORDERED: LACTATED RINGERS 1,000 ML IV ONE (13:53)
[2021-12-06] MEDS ORDERED: METOPROLOL TARTRATE 50 MG TAB PO PRN (15:08)
[2021-12-06] MEDS ORDERED: ONDANSETRON 4 MG TAB PO PRN (15:08)
[2021-12-06] MEDS ORDERED: ALBUTEROL HFA INHALER INHALATION PRN (15:08)
[2021-12-06] MEDS ORDERED: CYCLOBENZAPRINE 10 MG TAB PO PRN (15:08)
--- NOTE | 2021-12-06 15:08 | P.OP ---
Date of Procedure: 12/06/21 Preoperative Diagnosis: Left renal stone Postoperative Diagnosis: Same Procedure(s) Performed: Cystoscopy, left ureteral catheterization, percutaneous nephrolithotomy (2>cm) and nephrostomy tube placement Implants: None Anesthesia: GIA Surgeon: Ace Harden Estimated Blood Loss (ml): 250 Pathology: other (Left renal stones) Condition: stable Disposition: PACU Indications for Procedure: This is a 61-year-old male with history of 2.2 cm left-sided renal stone, he is symptomatic from his stone. Discussed with him the option of stage ureteroscopy versus percutaneous nephrolithotomy. Discussed the risk and benefit of each approach. He agreed to proceed with a percutaneous nephrolithotomy. Discussed the risk which includes but not limited to bleeding, infection, injury to the kidney, injury to nearby organs which includes but not limited to the spleen, lung, bowel. Discussed also with him risk from anesthesia. He understood all the risk and agreed to proceed with a left-sided percutaneous nephrolithotomy Operative Findings: Large stone within the lower pole Description of Procedure: Patient brought to the operating room, general anesthesia was induced. Cystoscopy fitted with a 21-Polish sheath was inserted per urethra, cystoscopy was performed which showed no abnormality within the bladder. At this time the left ureteral orifice was identified, and intubated with a balloon occlusion catheter. Next the cystoscope was withdrawn with the balloon occlusion catheter in place. Next a Haskins catheter was placed, and the catheter was secured to the balloon occlusion catheter. Next access was obtained into the mid pole by Dr. Rain, please see his portion of the dictation. Once 2 wires were advanced down the ureter, next a NephroMax balloon dilator was passed over the stiff wire and into the midpole calyx. This was inflated under fluoroscopy next the access sheath was advanced over the balloon. Next the balloon was removed with the access sheath in place. Next a rigid nephroscope was inserted through the access sheath, renoscopy was performed showed a large stone within the lower pole, an additional fragment extended into the renal pelvis. Using the ultrasound lithotripter the stone was fragmented into small fragments, sizable fragments were removed and sent to analysis. Repeat renoscopy showed no additional stones. This time I switched to the flexible he cystoscope, and a complete renoscopy was performed showed no additional stones, antegrade nephrostogram was performed which showed no evidence of contrast extravasation, and I ensured that all calyces were evaluated. Also contrast was seen going down the ureter. At this time the flexible cystoscope was withdrawn and a 12- Polish nephrostomy tube was passed over the wire, under fluoroscopy the nephrostomy tube was positioned the renal pelvis. Next the access sheath was removed with the nephrostomy tube in place. Next subcutaneous tissue was closed using 2-0 Vicryl, the medial aspect of the skin was also closed using 2-0 Vicryl. The lateral aspect of the skin incision was closed using 2-0 silk and the nephrostomy tube was secured to the skin using the silk stitch. At this time the patient was repositioned in supine position. Patient tolerated procedure was taken recovery in stable condition
[2021-12-06] MEDS ORDERED: MAG HYDROX/AL HYDROX/SIMETH 30 ML CUP PO PRN (15:12)
[2021-12-06] MEDS ORDERED: ONDANSETRON 4 MG/2 ML VIAL IVP PRN (15:12)
[2021-12-06] MEDS ORDERED: ACETAMINOPHEN TAB 325 MG TAB PO PRN (15:12)
[2021-12-06] MEDS: HEPARIN SODIUM,PORCINE/PF 5,000 UNIT/0.5 ML SYRINGE SQ SCH (16:50)
[2021-12-06] MEDS: GABAPENTIN 300 MG CAP PO SCH ×2 (16:50→20:44)
[2021-12-06] MEDS: LEVOFLOXACIN 500MG-D5W PMX 500 MG in DEXTROSE/WATER 1 100ML.BAG IVPB SCH (18:08)
[2021-12-06] MEDS: KETOROLAC 15 MG/ML 1 ML VIAL IVP SCH (18:09)
[2021-12-06] MEDS: IPRATROPIUM-ALBUTEROL 3 ML NEB INHALATION SCH ×2 (18:31→20:56)
[2021-12-06] MEDS: DEXTROSE 5%-0.45% NACL 1,000 ML IV SCH (19:43)
[2021-12-06] MEDS: busPIRone HCl 10 MG TAB PO SCH (20:44)
[2021-12-06] MEDS ORDERED: FERROUS SULFATE 325 MG TAB PO SCH (21:00)
[2021-12-06] MEDS ORDERED: ATORVASTATIN 10 MG TAB PO SCH (21:00)
[2021-12-06] MEDS: MORPHINE SULFATE 4 MG/ML SYRINGE IVP PRN (22:18)
[2021-12-07] MEDS: HEPARIN SODIUM,PORCINE/PF 5,000 UNIT/0.5 ML SYRINGE SQ SCH ×3 (00:10→16:47)
[2021-12-07] MEDS: KETOROLAC 15 MG/ML 1 ML VIAL IVP SCH ×4 (00:10→16:47)
[2021-12-07] MEDS: DEXTROSE 5%-0.45% NACL 1,000 ML IV SCH ×2 (01:55→16:01)
[2021-12-07 07:02] VITALS: RESP 17
[2021-12-07] MEDS: MORPHINE SULFATE 4 MG/ML SYRINGE IVP PRN (07:18)
[2021-12-07] MEDS ORDERED: PANTOPRAZOLE 40 MG TABLET PO SCH (07:30)
[2021-12-07] MEDS: LACTATED RINGERS 1,000 ML IV SCH (07:33)
[2021-12-07] MEDS: GABAPENTIN 300 MG CAP PO SCH ×2 (07:40→16:47)
[2021-12-07] MEDS: busPIRone HCl 10 MG TAB PO SCH (07:40)
[2021-12-07] MEDS ORDERED: ESCITALOPRAM 10 MG TAB PO SCH (09:00)
[2021-12-07] MEDS ORDERED: FENOFIBRATE 160 MG TAB PO SCH (09:00)
[2021-12-07] MEDS ORDERED: TAMSULOSIN 0.4 MG CAP.ER.24H PO SCH (09:00)
[2021-12-07] MEDS: IPRATROPIUM-ALBUTEROL 3 ML NEB INHALATION SCH ×3 (10:09→15:48)
--- NOTE | 2021-12-07 13:50 | P.DS ---
Providers Date of admission: 12/07/21 04:56 Attending physician: Ace Harden MD Primary care physician: [facility] Course: This is a 61-year-old male with history of large left-sided renal stone. He underwent left-sided percutaneous nephrolithotomy on December 06. please see op note dated December 06 for surgery detail. He did well in the postoperative period. The Haskins catheter was removed on postoperative day #1. He was discharged home on postop day #1. At time of discharge he was tolerating a diet, ambulating, and pain was well-controlled Plan - Discharge Summary Discharge Rx Participant: Yes New Discharge Prescriptions: New Ketorolac [Toradol] 10 mg PO Q6HR PRN #15 tab PRN Reason: Pain Sulfamethox-Tmp 800-160Mg [Bactrim DS 800-160 mg] 1 tab PO Q12HR #6 tab HYDROcodone/APAP 5-325MG [Haysi 5-325] 1 tab PO Q4HR PRN 3 Days #8 tab PRN Reason: Pain No Action Fenofibrate [Lofibra] 160 mg PO DAILY Omeprazole 40 mg PO DAILY Atorvastatin [Lipitor] 10 mg PO HS Aspirin 81 mg PO DAILY Rivaroxaban [Xarelto] 20 mg PO DAILY Metoprolol Tartrate [Lopressor] 50 mg PO BID PRN PRN Reason: Blood Pressure - High Ipratropium-Albuterol Nebulize [Duoneb 0.5 mg-3 mg/3 ml Soln] 3 ml INHALATION RT-QID Escitalopram Oxalate [Lexapro] 10 mg PO DAILY busPIRone HCL 10 mg PO BID Ferrous Sulfate [Iron (65 MG Elemental)] 325 mg PO HS Cyclobenzaprine [Flexeril] 10 mg PO TID PRN PRN Reason: Pain Tamsulosin HCl [Flomax] 0.4 mg PO DAILY Albuterol Sulfate [Proair Hfa] 1 - 2 puff INHALATION Q6HR PRN #8.5 gm PRN Reason: Dyspnea Gabapentin [Neurontin] 300 mg PO TID Ondansetron [Zofran] 4 mg PO Q12HR PRN PRN Reason: Nausea Discharge Medication List Fenofibrate [Lofibra] 160 mg PO DAILY 11/07/13 [History] Atorvastatin [Lipitor] 10 mg PO HS 05/23/15 [History] Omeprazole 40 mg PO DAILY 05/23/15 [History] Aspirin 81 mg PO DAILY 03/24/20 [History] Metoprolol Tartrate [Lopressor] 50 mg PO BID PRN 03/24/20 [History] Rivaroxaban [Xarelto] 20 mg PO DAILY 03/24/20 [History] Cyclobenzaprine [Flexeril] 10 mg PO TID PRN 01/25/21 [History] Escitalopram Oxalate [Lexapro] 10 mg PO DAILY 01/25/21 [History] Ferrous Sulfate [Iron (65 MG Elemental)] 325 mg PO HS 01/25/21 [History] Ipratropium-Albuterol Nebulize [Duoneb 0.5 mg-3 mg/3 ml Soln] 3 ml INHALATION RT-QID 01/25/21 [History] Tamsulosin HCl [Flomax] 0.4 mg PO DAILY 01/25/21 [History] Albuterol Sulfate [Proair Hfa] 1 - 2 puff INHALATION Q6HR PRN #8.5 gm 04/02/21 [Rx] Gabapentin [Neurontin] 300 mg PO TID 12/05/21 [History] Ondansetron [Zofran] 4 mg PO Q12HR PRN 12/05/21 [History] busPIRone HCL 10 mg PO BID 12/05/21 [History] HYDROcodone/APAP 5-325MG [Haysi 5-325] 1 tab PO Q4HR PRN 3 Days #8 tab 12/07/21 [Rx] Ketorolac [Toradol] 10 mg PO Q6HR PRN #15 tab 12/07/21 [Rx] Sulfamethox-Tmp 800-160Mg [Bactrim DS 800-160 mg] 1 tab PO Q12HR #6 tab 12/07/21 [Rx] Activity/Diet/Wound Care/Special Instructions: Increase fluid intake Hold your Xarelto, Ok to resume Aspirin on Friday You can use Toradol for pain, if still having pain can use Haysi in addition. Discharge Disposition: HOME SELF-CARE
[2021-12-07 13:54] VITALS: BP 99/62; TEMP 98.4
[2021-12-07 15:51] VITALS: PULSE 80
[2021-12-07] MEDS: LEVOFLOXACIN 500MG-D5W PMX 500 MG in DEXTROSE/WATER 1 100ML.BAG IVPB SCH (16:47)
--- NOTE | 2021-12-07 18:54 | FL ---
EXAMINATION TYPE: FL Perc Nephrostomy New Access DATE OF EXAM: 12/06/2021 COMPARISON: NONE HISTORY: Left renal calculus Procedure had been discussed with the patient by Dr. Rowley, risks, benefits, alternatives, were dis cussed and any questions were answered. Informed consent was obtained. The patient was in a semipro ne position prepped and draped on the OR table in the usual sterile fashion. Utilizing a 15 cm lengt h Chiba needle a single pass was made into a mid pole posterior calyx under fluoroscopic guidance. A n 0.018 guidewire is passed through the needle and there was placement of a 6-Bermudian catheter sheath system. There was conversion to a 0.035 system was performed with passage of a guidewire into the u reter utilizing a directional catheter. A second safety wire was placed. Remaining portion of proce dure performed by . Approximately 8 minutes and 56 seconds of fluoroscopy was provided. IMPRESSION: 1. Successful intraoperative left nephrostomy prior to nephrolithotomy.
== END 2021-12-07 18:13 | disposition home or self-care (01) ==
LOC: OR 09:48 → 4SSUR 14:35 → OR 12-07 04:56 → 4SSUR 12-07 04:56
PROVIDERS: ADMIT Urology; ATTEND Urology
DX: N20.0 Calculus of kidney (principal); J44.9 Chronic obstructive pulmonary disease, unspecified; K21.9 Gastro-esophageal reflux disease without esophagitis; E78.5 Hyperlipidemia, unspecified; M19.90 Unspecified osteoarthritis, unspecified site; G40.909 Epilepsy, unspecified, not intractable, without status epilepticus; Z95.1 Presence of aortocoronary bypass graft; I73.9 Peripheral vascular disease, unspecified; Z86.14 Personal history of Methicillin resistant Staphylococcus aureus infection; Z98.890 Other specified postprocedural states; F41.9 Anxiety disorder, unspecified; F32.A Depression, unspecified; Z87.891 Personal history of nicotine dependence; Z82.3 Family history of stroke; Z83.3 Family history of diabetes mellitus; Z83.6 Family history of other diseases of the respiratory system; Z80.1 Family history of malignant neoplasm of trachea, bronchus and lung; Z81.1 Family history of alcohol abuse and dependence; Z79.01 Long term (current) use of anticoagulants; Z79.82 Long term (current) use of aspirin; Z79.899 Other long term (current) drug therapy; Z88.0 Allergy status to penicillin; Z91.030 Bee allergy status
CPT/HCPCS: 94640 ×3; 86900; 86901; 86850; 82365; 50432; 74018; 50081; G0378; C2628 ×2; C1894; C1769 ×2; J2250; J0330; J2270 ×2; J1100; J2710; J2405; J1956 ×2; J3010; J1580; J1170; J1885 ×2; J2370; J2704; Q9967; J1644; J2001

== ENCOUNTER 2022-01-24 16:46 | Emergency (ER) | payer MEDICARE ==
[2022-01-24 16:51] VITALS: TEMP 98.2
[2022-01-24] MEDS ORDERED: IPRATROPIUM 0.5 MG/2.5 ML NEBU INHALATION STA (17:02)
[2022-01-24] MEDS ORDERED: methylPREDNISolone SOD SUCCI 125 MG/2 ML VIAL IV STA (17:02)
[2022-01-24] MEDS ORDERED: ALBUTEROL NEBULIZED 2.5 MG/3 ML INHALATION STA (17:02)
[2022-01-24] MEDS ORDERED: SODIUM CHLORIDE 0.9% 1,000 ML IV STA (17:02)
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
[2022-01-24 17:23] VITALS: RESP 18
[2022-01-24 17:29] LABS: Basophils % (A) 1 %; Eosinophils % (A) 1 %; HCT 38.4 % (39.0-53.0); HGB 11.9 gm/dL (13.0-17.5); Hypochromasia Slight; Lymphocytes # (A) 0.8 k/uL (1.0-4.8); Lymphocytes % (A) 15 %; MCH 27.8 pg (25.0-35.0); MCV 89.9 fL (80.0-100.0); Mean Platelet Volume 8.1; Monocytes # (A) 0.4 k/uL (0-1.0); Monocytes % (A) 7 %; Neutrophils % (A) 76 %; Platelet Count 245 k/uL (150-450); RBC 4.28 m/uL (4.30-5.90); RDW 15.7 % (11.5-15.5); WBC 5.3 k/uL (3.8-10.6)
[2022-01-24 17:40] LABS: Albumin 3.9 g/dL (3.5-5.0); Calcium 9.5 mg/dL (8.4-10.2); Magnesium 1.8 mg/dL (1.6-2.3); Total Bilirubin 0.2 mg/dL (0.2-1.3); Total Protein 6.4 g/dL (6.3-8.2)
[2022-01-24 18:05] LABS: INR 1.3 (<1.2); Partial Thromboplastin Time 31.6 sec (22.0-30.0); Prothrombin Time 13.8 sec (9.0-12.0)
--- NOTE | 2022-01-24 18:27 | XR ---
EXAMINATION: XR chest 3V DATE AND TIME: 01/24/2022 6:12 PM CLINICAL INDICATION: difficulty breathing TECHNIQUE: Frontal and 2 lateral views COMPARISON: 04/02/2021 FINDINGS: The lungs are overinflated, consistent with COPD; they appear to be clear and similar to the prior st udy. The pleural spaces are negative. The cardiac silhouette is not enlarged. The remainder of the mediastinal silhouette is unremarkable. The skeletal structures and soft tissues are negative for acute findings. IMPRESSION: No definite acute radiographic process; stable radiographic appearance.
[2022-01-24 20:09] VITALS: BP 117/84; PULSE 76
== END 2022-01-24 20:19 | disposition home or self-care (01) ==
LOC: EC 16:46
DX: I95.1 Orthostatic hypotension (principal); E86.0 Dehydration; J44.9 Chronic obstructive pulmonary disease, unspecified; K21.9 Gastro-esophageal reflux disease without esophagitis; E78.5 Hyperlipidemia, unspecified; M19.90 Unspecified osteoarthritis, unspecified site; F17.200 Nicotine dependence, unspecified, uncomplicated; Z88.0 Allergy status to penicillin; Z91.030 Bee allergy status; Z88.8 Allergy status to other drugs, medicaments and biological substances; Z79.899 Other long term (current) drug therapy; Z79.82 Long term (current) use of aspirin; Z79.01 Long term (current) use of anticoagulants
CPT/HCPCS: 36415; 94640; 93005; 80053; 83605; 83735; 84484; 85025; 85610; 85730; 71046; 99284; 96374; 96361; J2930

== ENCOUNTER 2022-03-27 21:14 | Inpatient (IN) | payer MEDICARE ==
[2022-03-27] MEDS ORDERED: predniSONE 20 MG TAB PO STA (21:32)
[2022-03-27] MEDS ORDERED: IPRATROPIUM-ALBUTEROL 3 ML NEB INHALATION STA (21:32)
[2022-03-27] MEDS ORDERED: SODIUM CHLORIDE 0.9% 1,000 ML IV STA ×2 (21:32)
[2022-03-27] MEDS ORDERED: AZITHROMYCIN 500 MG TAB PO STA (21:33)
[2022-03-27] MEDS ORDERED: HYDROcodone/APAP 5-325MG 1 EACH TAB PO STA (21:37)
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
[2022-03-27 22:03] LABS: ALT 11 U/L (4-49); AST 23 U/L (17-59); African American GFR (CKD) >90 (>60 ml/min/1.73 sqM); Albumin 4.4 g/dL (3.5-5.0); Alkaline Phosphatase 61 U/L (38-126); Anion Gap 14 mmol/L; Blood Urea Nitrogen 11 mg/dL (9-20); Carbon Dioxide 28 mmol/L (22-30); Chloride 99 mmol/L (98-107); Glucose 96 mg/dL (74-99); Non-African American GFR(CKD) >90 (>60 ml/min/1.73 sqM); Potassium 3.5 mmol/L (3.5-5.1); Sodium 141 mmol/L (137-145); Total Bilirubin 0.2 mg/dL (0.2-1.3); Total Protein 6.9 g/dL (6.3-8.2)
[2022-03-27 22:08] LABS: Anisocytosis Slight; Basophils # (A) 0.2 k/uL (0-0.2); Basophils % (A) 2 %; Eosinophils % (A) 0 %; HCT 40.5 % (39.0-53.0); HGB 12.3 gm/dL (13.0-17.5); Hypochromasia Moderate; Lymphocytes # (A) 1.1 k/uL (1.0-4.8); Lymphocytes % (A) 11 %; MCH 25.8 pg (25.0-35.0); MCHC 30.3 g/dL (31.0-37.0); MCV 85.1 fL (80.0-100.0); Mean Platelet Volume 8.7; Monocytes # (A) 0.8 k/uL (0-1.0); Monocytes % (A) 8 %; Neutrophils # (A) 7.7 k/uL (1.3-7.7); Neutrophils % (A) 78 %; Platelet Count 270 k/uL (150-450); RBC 4.76 m/uL (4.30-5.90); RDW 16.7 % (11.5-15.5); WBC 9.9 k/uL (3.8-10.6)
[2022-03-27 22:15] LABS: INR 1.1 (<1.2); Partial Thromboplastin Time 26.6 sec (22.0-30.0); Prothrombin Time 11.8 sec (9.0-12.0)
--- NOTE | 2022-03-27 23:03 | XR ---
EXAMINATION TYPE: XR chest 2V DATE OF EXAM: 03/27/2022 COMPARISON: 01/24/2022 HISTORY: Short of breath TECHNIQUE: FINDINGS: There is no heart failure nor confluent pneumonic infiltrate. There is pulmonary hyperinfla tion and flattening of the diaphragm. There is mild reticular increased density right upper lobe. The re are chest leads. Bony thorax is intact. IMPRESSION: COPD. Mild increased density right upper lobe consistent with scarring. Normal heart
[2022-03-27] MEDS ORDERED: ALBUTEROL NEBULIZED 2.5 MG/3 ML INHALATION STA (23:45)
[2022-03-28] MEDS ORDERED: MELATONIN 3 MG TABLET PO PRN (00:34)
[2022-03-28] MEDS ORDERED: NALOXONE 0.4 MG/ML 1 ML VIAL IVP PRN (00:34)
[2022-03-28] MEDS ORDERED: HYDROcodone/APAP 5-325MG 1 EACH TAB PO PRN (00:34)
[2022-03-28] MEDS ORDERED: METOPROLOL TARTRATE 50 MG TAB PO PRN (05:19)
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
[2022-03-28] MEDS: IPRATROPIUM-ALBUTEROL 3 ML NEB INHALATION SCH ×4 (08:51→20:34)
[2022-03-28] MEDS: predniSONE 20 MG TAB PO SCH (10:08)
[2022-03-28] MEDS: ESCITALOPRAM 10 MG TAB PO SCH (10:09)
[2022-03-28] MEDS: ASPIRIN 81 MG PO SCH (10:09)
[2022-03-28] MEDS: TAMSULOSIN 0.4 MG CAP.ER.24H PO SCH (10:09)
[2022-03-28] MEDS: RIVAROXABAN 20 MG TAB PO SCH (10:09)
--- NOTE | 2022-03-28 14:59 | P.PN ---
Subjective Progress Note Date: 03/28/22 Hospital course: Patient is a very pleasant 61-year-old male with a past medical history of atrial fibrillation on Xarelto, peripheral artery disease, hypertension, hyperlipidemia, COPD not on home oxygen dependent with continued nicotine dependence and BPH. He presented to the emergency department with a chief complaint of worsening shortness of breath and wheezing. He underwent full evaluation in the emergency department. CBC, coags and CMP were unremarkable. D-dimer negative at 0.30 and troponin also negative at less than 0.012. Covid PCR negative. Initial lactate elevated at 2.2 with repeat lactate status post bolus of IV fluids 1.3. EKG showing sinus rhythm at 91 bpm. Chest x-ray consistent with COPD with pulmonary hyperinflation and flattening of the diaphragm. Patient was admitted under our services with consultation to pulmonology. Physical exam: Patient seen and fully evaluated at bedside. Reports feeling a little better but he remains on 3 L O2 via nasal cannula with SpO2 of 92% at rest. Patient has noted coarse cough throughout assessment. Patient reports he has significantly cut down and nicotine use reportedly smoking a previous 4 packs of cigarettes daily and now down to 1-1/2 packs daily. Had long discussion with patient regarding importance of smoking cessation and risks of continued use. Patient will likely need to go home with home oxygen. Vital signs reviewed and stable. General: Nontoxic, no distress and appears stated age. Thin build. Derm: Skin warm and dry, normal coloration for ethnicity. Head: Atraumatic, normocephalic and symmetric. Eyes: EOMs intact, no lid lag, and anicteric sclera Mouth: no lip lesions, mucus membranes moist Cardiovascular: regular rate and rhythm with normal S1S2, no murmur, positive posterior tibial pulses bilaterally, and cap refill < 2 seconds. Lungs: Respirations even, regular, and unlabored on 3 L O2 via nasal cannula. Lungs tight with expiratory wheezes throughout all slater. Coarse cough noted. No rhonchi, no rales, no crackles, and no accessory muscle usage. Abdominal: soft, nontender to palpation, no guarding, no appreciable organomegaly Ext: ROM intact. No gross muscle atrophy, no edema, no contractures Neuro: Speech clear, face symmetrical and CN II-XII grossly intact with no noted focal neuro deficits Psych: Alert and oriented to person, place, time, and situation. Appropriate and pleasant affect. Assessment and Plan of Care: COPD with acute exacerbation -Consult to Pulmonology -Oxygenation to be administered and titrated as needed to maintain SPO2 equal to or greater than 92% -Telemetry monitoring. -Continuous Pulse-oximetry -Duonebs scheduled and as needed for SOB and/or wheezing -Incentive Spirometry -Steroids: Prednisone -Antibiotics: Azithromycin -Educated patient on the importance of smoking cessation and risks of continued use. Lactic acidosis, resolved after IV fluid hydration Atrial fibrillation Peripheral artery disease status post bypass -Continue anticoagulation with Xarelto Hypertension -Monitor vital signs and continue daily medication regimen with metoprolol Hyperlipidemia -Continue daily medication regimen with atorvastatin. BPH -Continue daily medication regimen of Flomax. CODE STATUS: Full code DVT prophylaxis: Xarelto Discussed with: Pt and RN Anticipated discharge date: 1-[address]: Home A total of 38 minutes was spent on the care of this complex patient more than 50% of the time was spent in counseling and care coordination. Objective - Vital Signs Vital signs: Vital Signs Temp 98.2 F 03/28/22 07:31 Pulse 64 03/28/22 08:51 Resp 17 03/28/22 07:31 BP 149/77 03/28/22 07:31 Pulse Ox 97 03/28/22 07:31 FiO2 Intake & Output 03/27/22 03/28/22 03/28/22 18:59 06:59 18:59 Intake Total 200 Balance 200 Weight 56.699 kg Intake: Intake, IV Titration 200 Amount Sodium Chloride 0.9% 1, 200 000 ml @ 130 mls/hr IV . Q7H42M STA Rx#:[id number] Other: Voiding Method Toilet # Bowel Movements 0 - Labs CBC & Chem 7: 03/27/22 21:34 03/27/22 21:34 Labs: Abnormal Lab Results - Last 24 Hours (Table) 03/27/22 03/27/22 Range/Units 21:34 21:34 Hgb 12.3 L (13.0-17.5) gm/dL MCHC 30.3 L (31.0-37.0) g/dL RDW 16.7 H (11.5-15.5) % Plasma Lactic Acid Monico 2.2 H* (0.7-2.0) mmol/L
[2022-03-28] MEDS ORDERED: IPRATROPIUM-ALBUTEROL 3 ML NEB INHALATION PRN (15:21)
[2022-03-28] MEDS: GABAPENTIN 300 MG CAP PO SCH ×2 (16:03→20:25)
[2022-03-28] MEDS: ATORVASTATIN 10 MG TAB PO SCH (20:24)
[2022-03-28] MEDS: AZITHROMYCIN 500 MG TAB PO SCH (20:25)
[2022-03-29] MEDS: IPRATROPIUM-ALBUTEROL 3 ML NEB INHALATION SCH ×4 (08:52→19:29)
[2022-03-29] MEDS: ASPIRIN 81 MG PO SCH (09:34)
[2022-03-29] MEDS: FENOFIBRATE 160 MG TAB PO SCH (09:35)
[2022-03-29] MEDS: GABAPENTIN 300 MG CAP PO SCH ×3 (09:35→21:53)
[2022-03-29] MEDS: predniSONE 20 MG TAB PO SCH (09:35)
[2022-03-29] MEDS: TAMSULOSIN 0.4 MG CAP.ER.24H PO SCH (09:35)
[2022-03-29] MEDS: ESCITALOPRAM 10 MG TAB PO SCH (09:36)
[2022-03-29] MEDS: RIVAROXABAN 20 MG TAB PO SCH (09:36)
[2022-03-29] MEDS: methylPREDNISolone SOD SUCCI 40 MG/ML 1 ML VIAL IV SCH ×2 (11:59→20:14)
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
--- NOTE | 2022-03-29 17:12 | P.PN ---
Subjective Progress Note Date: 03/29/22 Hospital course: Patient is a very pleasant 61-year-old male with a past medical history of atrial fibrillation on Xarelto, peripheral artery disease, hypertension, hyperlipidemia, COPD not on home oxygen dependent with continued nicotine dependence and BPH. He presented to the emergency department with a chief complaint of worsening shortness of breath and wheezing. He underwent full evaluation in the emergency department. CBC, coags and CMP were unremarkable. D-dimer negative at 0.30 and troponin also negative at less than 0.012. Covid PCR negative. Initial lactate elevated at 2.2 with repeat lactate status post bolus of IV fluids 1.3. EKG showing sinus rhythm at 91 bpm. Chest x-ray consistent with COPD with pulmonary hyperinflation and flattening of the diaphragm. Patient was admitted under our services with consultation to pulmonology. Physical exam: Patient seen and fully evaluated at bedside. He has shown improvement overnight but remains on continuous oxygen of 3 L with SpO2 maintaining between 90 and 94% at rest. Discussed with RN and patient to have ambulatory pulse ox completed as patient will likely need to go home on oxygen. This is being set up by case management at this time as patient will likely be discharged within the next 24 hours. Vital signs reviewed and stable. General: Nontoxic, no distress and appears stated age. Thin build. Derm: Skin warm and dry, normal coloration for ethnicity. Head: Atraumatic, normocephalic and symmetric. Eyes: EOMs intact, no lid lag, and anicteric sclera Mouth: no lip lesions, mucus membranes moist Cardiovascular: regular rate and rhythm with normal S1S2, no murmur, positive posterior tibial pulses bilaterally, and cap refill < 2 seconds. Lungs: Respirations even, regular, and unlabored on 3 L O2 via nasal cannula. Lungs improved air flow with expiratory wheezes throughout all slater and continued course cough. No rhonchi, no rales, no crackles, and no accessory muscle usage. Abdominal: soft, nontender to palpation, no guarding, no appreciable organomegaly Ext: ROM intact. No gross muscle atrophy, no edema, no contractures Neuro: Speech clear, face symmetrical and CN II-XII grossly intact with no noted focal neuro deficits Psych: Alert and oriented to person, place, time, and situation. Appropriate and pleasant affect. Assessment and Plan of Care: COPD with acute exacerbation -Consult to Pulmonology -Oxygenation to be administered and titrated as needed to maintain SPO2 equal to or greater than 92% -Telemetry monitoring. -Monitor Pulse-oximetry -Duonebs scheduled and as needed for SOB and/or wheezing -Incentive Spirometry -Steroids: Solu-Medrol -Antibiotics: Azithromycin -Educated patient on the importance of smoking cessation and risks of continued use. Lactic acidosis, resolved after IV fluid hydration Atrial fibrillation Peripheral artery disease status post bypass -Continue anticoagulation with Xarelto Hypertension -Monitor vital signs and continue daily medication regimen with metoprolol Hyperlipidemia -Continue daily medication regimen with atorvastatin. BPH -Continue daily medication regimen of Flomax. CODE STATUS: Full code DVT prophylaxis: Xarelto Discussed with: Pt and RN Anticipated discharge date: Within the next [address]: Home with oxygen A total of 35 minutes was spent on the care of this complex patient more than 50% of the time was spent in counseling and care coordination. Objective - Vital Signs Vital signs: Vital Signs Temp 98.0 F 03/29/22 07:36 Pulse 92 03/29/22 09:04 Resp 17 03/29/22 07:36 BP 167/97 03/29/22 07:36 Pulse Ox 91 L 03/29/22 07:36 FiO2 Intake & Output 03/28/22 03/29/22 03/29/22 18:59 06:59 18:59 Intake Total 0 Output Total 1200 Balance -1200 0 Intake: Oral 0 Output: Urine 1200 Other: Voiding Method Toilet - Labs CBC & Chem 7: 03/27/22 21:34 03/27/22 21:34 Labs: Microbiology - Last 24 Hours (Table) 03/27/22 21:40 Blood Culture - Preliminary Blood No Growth after 24 hours 03/27/22 21:55 Blood Culture - Preliminary Blood No Growth after 24 hours
[2022-03-29] MEDS ORDERED: DEXTROSE 50% SYRINGE 50 ML IVP PRN ×2 (19:01)
[2022-03-29 19:34] VITALS: TEMP 98.2
[2022-03-29] MEDS: INSULIN ASPART (NovoLOG) 100 UNIT/ML VIAL SQ SCH (20:16)
[2022-03-29 20:25] LABS: Glucose,Whole Blood 106 mg/dL (70-110)
[2022-03-29] MEDS: ATORVASTATIN 10 MG TAB PO SCH (21:53)
[2022-03-29] MEDS: AZITHROMYCIN 500 MG TAB PO SCH (22:43)
[2022-03-30] MEDS: IPRATROPIUM-ALBUTEROL 3 ML NEB INHALATION SCH (07:21)
[2022-03-30 07:27] LABS: Glucose,Whole Blood 116 mg/dL (70-110)
[2022-03-30] MEDS: GABAPENTIN 300 MG CAP PO SCH (07:30)
[2022-03-30] MEDS: ASPIRIN 81 MG PO SCH (07:30)
[2022-03-30] MEDS: FENOFIBRATE 160 MG TAB PO SCH (07:31)
[2022-03-30] MEDS: TAMSULOSIN 0.4 MG CAP.ER.24H PO SCH (07:31)
[2022-03-30 07:32] VITALS: BP 161/94
[2022-03-30] MEDS: methylPREDNISolone SOD SUCCI 40 MG/ML 1 ML VIAL IV SCH (07:32)
[2022-03-30] MEDS: ESCITALOPRAM 10 MG TAB PO SCH (07:32)
[2022-03-30] MEDS: INSULIN ASPART (NovoLOG) 100 UNIT/ML VIAL SQ SCH (07:32)
[2022-03-30] MEDS: RIVAROXABAN 20 MG TAB PO SCH (07:32)
[2022-03-30 07:35] VITALS: PULSE 88; RESP 18
--- NOTE | 2022-03-30 09:50 | P.DS ---
Providers Date of admission: 03/29/22 11:29 Expected date of discharge: 03/30/22 Attending physician: Elsie Velásquez MD Consults: 03/28/22 15:23 Consult Physician Routine Consulting Provider: Myke Jimenez Consult Reason/Comments: COPD exacerbaton Do you want consulting provider notified?: Yes Primary care physician: Stated None Hospital Course: Discharge Diagnosis: COPD with acute exacerbation, patient discharged home on home oxygen. He was instructed to continue scheduled breathing treatments every 6 hours 1 week and may then resume using duo nebs only as needed. Pt educated on importance of smoking cessation and risks associated with continued use up to and including . patient also discharged home with refills for pro-air inhaler as well as Trelegy-Ellipta. Lactic acidosis, resolved after IV fluid hydration Atrial fibrillation, Continue anticoagulation with Xarelto. Peripheral artery disease status post bypass. Continue anticoagulation with Xarelto Hypertension. Monitor vital signs and continue daily medication regimen with metoprolol Hyperlipidemia. Continue daily medication regimen with atorvastatin. BPH. Continue daily medication regimen of Flomax. Hospital Course: Patient is a very pleasant 61-year-old male with a past medical history of atrial fibrillation on Xarelto, peripheral artery disease, hypertension, hyperlipidemia, COPD not on home oxygen dependent with continued nicotine dependence and BPH. He presented to the emergency department with a chief complaint of worsening shortness of breath and wheezing. He underwent full evaluation in the emergency department. CBC, coags and CMP were unremarkable. D-dimer negative at 0.30 and troponin also negative at less than 0.012. Covid PCR negative. Initial lactate elevated at 2.2 with repeat lactate status post bolus of IV fluids 1.3. EKG showing sinus rhythm at 91 bpm. Chest x-ray consistent with COPD with pulmonary hyperinflation and flattening of the diaphragm. Patient was admitted under our services with consultation to pulmonology. patient required oxygen supplementation throughout hospitalization. He was on steroids, empiric antibiotics, as well as scheduled and as needed breathing treatments. Patient was repeatedly counseled on the importance of smoking cessation and risks associated with continued use. Patient showed significant improvement of her hospitalization. Ambulatory pulse oximetry was completed patient desaturating down to 84% on room air with minimal movement. Patient will require continuous home oxygen use. Likely patient is stable at this time in stable for discharge home. Case management has set up for arrangements for home oxygen to be delivered. Patient medically stable and discharged home, oxygen was brought to bedside. Physical exam: Vital signs reviewed and stable. General: Nontoxic, no distress and appears stated age. Thin build. Derm: Skin warm and dry, normal coloration for ethnicity. Head: Atraumatic, normocephalic and symmetric. Eyes: EOMs intact, no lid lag, and anicteric sclera Mouth: no lip lesions, mucus membranes moist Cardiovascular: regular rate and rhythm with normal S1S2, no murmur, positive posterior tibial pulses bilaterally, and cap refill < 2 seconds. Lungs: Respirations even, regular, and unlabored on 3 L O2 via nasal cannula. Lungs improved air flow with expiratory wheezes throughout all slater and continued course cough. No rhonchi, no rales, no crackles, and no accessory muscle usage. Abdominal: soft, nontender to palpation, no guarding, no appreciable organomegaly Ext: ROM intact. No gross muscle atrophy, no edema, no contractures Neuro: Speech clear, face symmetrical and CN II-XII grossly intact with no noted focal neuro deficits Psych: Alert and oriented to person, place, time, and situation. Appropriate and pleasant affect. A total of 32 minutes of time were spent preparing this complex discharge summary. Pt was discharged on 03/30/22 at 9:48 AM. Patient Condition at Discharge: Stable Plan - Discharge Summary Discharge Rx Participant: Yes New Discharge Prescriptions: New predniSONE See Taper PO DIRECTED 16 Days #40 tab Azithromycin [Zithromax] 500 mg PO HS 3 Days #3 tab Continue Fenofibrate [Lofibra] 160 mg PO DAILY Omeprazole 40 mg PO DAILY Atorvastatin [Lipitor] 10 mg PO HS Aspirin 81 mg PO DAILY Rivaroxaban [Xarelto] 20 mg PO DAILY Metoprolol Tartrate [Lopressor] 50 mg PO BID Escitalopram Oxalate [Lexapro] 10 mg PO DAILY Ferrous Sulfate [Iron (65 MG Elemental)] 325 mg PO HS Cyclobenzaprine [Flexeril] 10 mg PO TID PRN PRN Reason: Pain Tamsulosin HCl [Flomax] 0.4 mg PO DAILY Gabapentin [Neurontin] 300 mg PO TID Ondansetron [Zofran] 4 mg PO Q12HR PRN PRN Reason: Nausea hydrOXYzine HCL [Atarax] 25 mg PO TID PRN PRN Reason: Anxiety Ipratropium-Albuterol Nebulize [Duoneb 0.5 mg-3 mg/3 ml Soln] 3 ml INHALATION RT-QID 30 Days #360 ml Fluticasone/Umeclidin/Vilanter [Trelegy Ellipta 100-62.5-25] 1 puff INHALATION RT-DAILY 30 Days #1 each Changed Albuterol Sulfate [Proair Hfa] 2 puff INHALATION RT-Q6H PRN #1 each PRN Reason: Shortness Of Breath Discontinued Sulfamethox-Tmp 800-160Mg [Bactrim DS 800-160 mg] 1 tab PO Q12HR #6 tab Discharge Medication List Fenofibrate [Lofibra] 160 mg PO DAILY 11/07/13 [History] Atorvastatin [Lipitor] 10 mg PO HS 05/23/15 [History] Omeprazole 40 mg PO DAILY 05/23/15 [History] Aspirin 81 mg PO DAILY 03/24/20 [History] Metoprolol Tartrate [Lopressor] 50 mg PO BID 03/24/20 [History] Rivaroxaban [Xarelto] 20 mg PO DAILY 03/24/20 [History] Cyclobenzaprine [Flexeril] 10 mg PO TID PRN 01/25/21 [History] Escitalopram Oxalate [Lexapro] 10 mg PO DAILY 01/25/21 [History] Ferrous Sulfate [Iron (65 MG Elemental)] 325 mg PO HS 01/25/21 [History] Tamsulosin HCl [Flomax] 0.4 mg PO DAILY 01/25/21 [History] Gabapentin [Neurontin] 300 mg PO TID 12/05/21 [History] Ondansetron [Zofran] 4 mg PO Q12HR PRN 12/05/21 [History] hydrOXYzine HCL [Atarax] 25 mg PO TID PRN 03/28/22 [History] Albuterol Sulfate [Proair Hfa] 2 puff INHALATION RT-Q6H PRN #1 each 03/30/22 [Rx] Azithromycin [Zithromax] 500 mg PO HS 3 Days #3 tab 03/30/22 [Rx] Fluticasone/Umeclidin/Vilanter [Trelegy Ellipta 100-62.5-25] 1 puff INHALATION RT-DAILY 30 Days #1 each 03/30/22 [Rx] Ipratropium-Albuterol Nebulize [Duoneb 0.5 mg-3 mg/3 ml Soln] 3 ml INHALATION RT-QID 30 Days #360 ml 03/30/22 [Rx] predniSONE See Taper PO DIRECTED 16 Days #40 tab 03/30/22 [Rx] Follow up Appointment(s)/Referral(s): [facility],Equipment [NON-STAFF] - As Needed (Call [facility] once home to arrange delivery of the oxygen concentrator. ) Milton Cyr MD [STAFF PHYSICIAN] - 3 Days Myke Jimenez MD [STAFF PHYSICIAN] - 1 Week Patient Instructions/Handouts: How to Stop Smoking (DC), Cigarette Smoking and Your Health (GEN), Using Oxygen at Home (DC), COPD (Chronic Obstructive Pulmonary Disease) (DC), Chronic Lung Disease and Infection Prevention (DC) Activity/Diet/Wound Care/Special Instructions: Activity: As tolerated. Take breaks as needed. Diet: Heart healthy and carb consistent diet. Avoid salts, or foods with hidden salts such as canned or boxed foods and frozen dinners. Extra salt makes your heart work harder and traps the fluid in your body for longer. Special Instructions: Take all of your medications as directed and remember to keep all of your doctor's appointments and follow-up as needed. Strongly advised to stopping smoking, continued smoking may lead to further detrimental health effects up to and including . It is also very important that you are not around any cigarette smoke, so please ensure no one smokes inside your home. You will need to wear oxygen at all times including while in the shower until further instructed by her returned materials inspector on your follow-up visit. Thank you for allowing us to participate in your care, it was truly a pleasure having you for our patient!!! Discharge Disposition: HOME SELF-CARE
== END 2022-03-30 10:45 | disposition home or self-care (01) | DRG 190 ==
LOC: EC 21:14 → 4SSUR 03-28 00:35 → OBSVTOIN 03-29 11:29
PROVIDERS: ADMIT Internal Medicine; ATTEND Internal Medicine
DX: J44.1 Chronic obstructive pulmonary disease with (acute) exacerbation (principal); J96.01 Acute respiratory failure with hypoxia; E87.2 Acidosis; I48.0 Paroxysmal atrial fibrillation; E78.5 Hyperlipidemia, unspecified; E86.0 Dehydration; G40.909 Epilepsy, unspecified, not intractable, without status epilepticus; I73.9 Peripheral vascular disease, unspecified; Z20.822 Contact with and (suspected) exposure to COVID-19; I10 Essential (primary) hypertension; K21.9 Gastro-esophageal reflux disease without esophagitis; N40.0 Benign prostatic hyperplasia without lower urinary tract symptoms; F32.A Depression, unspecified; F41.9 Anxiety disorder, unspecified; M19.90 Unspecified osteoarthritis, unspecified site; F17.210 Nicotine dependence, cigarettes, uncomplicated; Z71.6 Tobacco abuse counseling; Z79.01 Long term (current) use of anticoagulants; Z79.82 Long term (current) use of aspirin; Z79.51 Long term (current) use of inhaled steroids; Z79.899 Other long term (current) drug therapy; Z95.828 Presence of other vascular implants and grafts; Z86.14 Personal history of Methicillin resistant Staphylococcus aureus infection; Z91.030 Bee allergy status; Z88.0 Allergy status to penicillin; Z91.048 Other nonmedicinal substance allergy status; Z82.5 Family history of asthma and other chronic lower respiratory diseases
CPT/HCPCS: 36415; 71046; 80053; 83605; 84484; 85025; 85379; 85610; 85730; 87040; 87635; 93005; 94640; 94760; 96365; 96366; 99285

== ENCOUNTER → 2022-05-06 | Outpatient (CLI) | payer MEDICARE ==
--- NOTE | 2022-05-07 10:23 | MR ---
EXAMINATION TYPE: MR kidney wo/w con DATE OF EXAM: 05/06/2022 6:34 PM INDICATION: Patient age:Male; 61 years old; Reason for study: D41.02 LEFT RENAL MASS. Left renal mass. COMPARISON: 11/03/2021 MRI, CT urogram 09/26/2021 TECHNIQUE: Multiplanar multi-sequence imaging was performed without contrast. Post contrast imaging was performed. IV Contrast: 7 cc Gadavist FINDINGS: LOWER CHEST: No gross irregularity. ABDOMEN Liver: Unremarkable. Gallbladder and Bile ducts: Unremarkable. Pancreas: Unremarkable. Spleen: Unremarkable. Adrenal glands: Unremarkable. Kidneys: Redemonstration of left lower renal cortex neoplasm which is low T2 and T1 isosignal to back ground renal cortex. This area measures similarly at 2.2 x 1.4 x 2.6 cm post contrast imaging subtrac noble imaging was not performed and subtle enhancement is not excluded on MRI. The lesion did demonstra te enhancement on prior CT. Stomach and Bowel: Unremarkable as visualized. Peritoneum: No evidence of pneumoperitoneum, free fluid, or adenopathy. Vasculature: Unremarkable. No aortic aneurysm. Abdominal wall: Unremarkable. Musculoskeletal: The osseous structures appear intact. Dextroscoliosis apex L3. IMPRESSION: Redemonstration of left lower pole likely hypoenhancing renal mass which is felt to be similar in siz e. Findings are concerning for hypoenhancing renal mass such as chromophobe or papillary renal cell c arcinoma.
== END | disposition home or self-care (01) ==
LOC: RADMRIMAIN 17:41
PROVIDERS: ATTEND Urology
DX: D41.02 Neoplasm of uncertain behavior of left kidney (principal)
CPT/HCPCS: 74183; A9585

== ENCOUNTER → 2022-05-06 | Outpatient (CLI) | payer MEDICARE ==
--- NOTE | 2022-05-07 11:58 | US ---
EXAMINATION TYPE: US scrotum with doppler. Grayscale and color Doppler Duplex imaging performed of rekha ochoa scrotum. DATE OF EXAM: 05/06/2022 COMPARISON: NONE CLINICAL HISTORY: N50.89 SCROTUM SWELLING OR PAIN. lump in scrotum EXAM MEASUREMENTS: TESTICLES: Right Testicle: 4.3 x 3.2 x 2.8 cm Left Testicle: 4.1 x 3.0 x 2.6 cm EPIDIDYMIS HEAD: Right Epididymis: 1.9 x 1.3 cm Left Epididymis: 1.7 x 1.4 cm Doppler performed to assess for testicular vascularity; good bilateral color flow and waveforms are s een. There is no evidence of testicular torsion. Presence of hydroceles: No Presence of varicoceles: On left side measuring 3.0mm Cyst seen in left epi head measuring 2.5 x 2.8 x 1.1cm in patient's area of concern. IMPRESSION: 1. Large Left epididymal cyst.
== END | disposition home or self-care (01) ==
LOC: RADUSWWP 16:47
PROVIDERS: ATTEND Urology
DX: N50.3 Cyst of epididymis (principal)
CPT/HCPCS: 76870; 93975

== ENCOUNTER 2022-05-13 14:40 | Observation (INO) | payer MEDICARE ==
[2022-05-13 16:40] LABS: Anisocytosis Slight; Basophils # (A) 0.1 k/uL (0-0.2); Basophils % (A) 1 %; Eosinophils # (A) 0.1 k/uL (0-0.7); Eosinophils % (A) 2 %; HCT 40.1 % (39.0-53.0); HGB 12.8 gm/dL (13.0-17.5); Hypochromasia Slight; Lymphocytes # (A) 0.7 k/uL (1.0-4.8); Lymphocytes % (A) 13 %; MCH 27.1 pg (25.0-35.0); MCHC 31.9 g/dL (31.0-37.0); MCV 85.2 fL (80.0-100.0); Mean Platelet Volume 8.6; Monocytes # (A) 0.3 k/uL (0-1.0); Monocytes % (A) 6 %; Neutrophils # (A) 4.1 k/uL (1.3-7.7); Neutrophils % (A) 77 %; Platelet Count 223 k/uL (150-450); RBC 4.71 m/uL (4.30-5.90); RDW 17.7 % (11.5-15.5); WBC 5.3 k/uL (3.8-10.6)
[2022-05-13 16:49] LABS: INR 1.3 (<1.2); Partial Thromboplastin Time 34.9 sec (22.0-30.0); Prothrombin Time 13.8 sec (9.0-12.0)
[2022-05-13 16:56] LABS: ALT 15 U/L (4-49); AST 30 U/L (17-59); African American GFR (CKD) >90 (>60 ml/min/1.73 sqM); Alkaline Phosphatase 55 U/L (38-126); Anion Gap 5 mmol/L; Blood Urea Nitrogen 15 mg/dL (9-20); Calcium 8.5 mg/dL (8.4-10.2); Carbon Dioxide 30 mmol/L (22-30); Chloride 104 mmol/L (98-107); Glucose 91 mg/dL (74-99); Non-African American GFR(CKD) >90 (>60 ml/min/1.73 sqM); Potassium 3.7 mmol/L (3.5-5.1); Sodium 139 mmol/L (137-145); Total Bilirubin 0.3 mg/dL (0.2-1.3); Total Protein 6.3 g/dL (6.3-8.2)
[2022-05-13] MEDS ORDERED: IPRATROPIUM-ALBUTEROL 3 ML NEB INHALATION STA (17:06)
[2022-05-13] MEDS ORDERED: methylPREDNISolone SOD SUCCI 125 MG/2 ML VIAL IV STA (17:06)
--- NOTE | 2022-05-13 17:12 | XR ---
EXAMINATION TYPE: XR chest 2V DATE OF EXAM: 05/13/2022 COMPARISON: 03/27/2022 HISTORY: Short of breath TECHNIQUE: 2 views FINDINGS: There is pulmonary hyperinflation and flattening of the diaphragm. There is some mild coars ening of interstitial markings. There are no hilar masses. Heart size is normal. No pleural effusion. Bony thorax is intact. IMPRESSION: COPD. Pulmonary fibrosis. Normal heart. No change compared to old exam. No acute lung dis ease. Stable scarring in the right upper lobe.
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
[2022-05-13] MEDS ORDERED: MORPHINE SULFATE 4 MG/ML SYRINGE IV PRN (18:36)
[2022-05-13] MEDS ORDERED: NALOXONE 0.4 MG/ML 1 ML VIAL IV PRN (18:36)
[2022-05-13] MEDS: SODIUM CHLORIDE 0.9% 1,000 ML IV SCH (19:38)
[2022-05-14] MEDS ORDERED: CYCLOBENZAPRINE 10 MG TAB PO PRN (00:21)
[2022-05-14] MEDS ORDERED: hydrOXYzine HCL 25 MG TAB PO PRN (00:21)
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
[2022-05-14] MEDS ORDERED: IPRATROPIUM-ALBUTEROL 3 ML NEB INHALATION SCH (08:00)
[2022-05-14] MEDS ORDERED: SYMBICORT 80-4.5 MCG INHALER INHALATION SCH (08:00)
[2022-05-14] MEDS ORDERED: FENOFIBRATE 160 MG TAB PO SCH (09:00)
[2022-05-14] MEDS ORDERED: ESCITALOPRAM 20 MG TAB PO SCH (09:00)
[2022-05-14] MEDS ORDERED: RIVAROXABAN 20 MG TAB PO SCH (09:00)
[2022-05-14] MEDS ORDERED: PANTOPRAZOLE 40 MG TABLET PO SCH (09:00)
[2022-05-14] MEDS ORDERED: ASPIRIN 81 MG PO SCH (09:00)
[2022-05-14] MEDS: GABAPENTIN 300 MG CAP PO SCH ×2 (09:34→15:25)
[2022-05-14] MEDS: SODIUM CHLORIDE 0.9% 1,000 ML IV SCH ×2 (09:35→12:30)
[2022-05-14] MEDS ORDERED: ALBUTEROL HFA INHALER INHALATION SCH (12:00)
[2022-05-14 12:40] VITALS: BP 122/74; PULSE 70; RESP 18; TEMP 97.6
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
--- NOTE | 2022-05-14 14:00 | P.DS ---
Providers Date of admission: 05/13/22 18:36 Expected date of discharge: 05/14/22 Attending physician: Kristin Mcdaniels MD Consults: 05/13/22 18:36 Consult Physician Urgent Consulting Provider: [facility] Consult Reason/Comments: chest pain Do you want consulting provider notified?: Yes Primary care physician: Stated None Hospital Course: The patient is a 61-year-old male with a PMH of COPD, hypertension, hyperlipidemia, A. fib on Xarelto who presented to the emergency room with complaints of chest discomfort and shortness of breath. At time of interview, she reported feeling back to baseline. He denied experiencing cough, fever, chills, nausea, vomiting, diaphoresis, or dizziness. Laboratory evaluation was remarkable for troponin less than 0.012 with coronavirus PCR positive. Chest x- ray revealed COPD with pulmonary fibrosis with stable scarring of the right upper lobe. The patient and SpO2 of 98% on room air in the emergency room. His chest pain was thought to be pleuritic in nature. Troponins trended and ACS was ruled out. Cardiology was consulted and cleared the patient for discharge. Patient was seen and examined this morning. No acute events overnight. Patient reports no chest pain. He denies any shortness of breath or palpitations. No lightheadedness. Pertient studies include CXR. General: non toxic, no distress, appears at stated age, normal weight Derm: no unusual rashes/lesions, warm Head: atraumatic, normocephalic, symmetric Eyes: EOMI, no lid lag, anicteric sclera ENT: Nose and ears atraumatic Neck: No cervical lymphadenopathy, trachea midline, supple Mouth: no lip lesion, mucus membranes moist Cardiovascular: S1S2 reg, no murmur, no edema Lungs: Expiratory wheezing, no rhonchi, no rales, no accessory muscle use Abdominal: soft, nontender to palpation, no guarding Ext: muscle strength 5 out of 5 in all 4 extremities grossly, no gross muscle atrophy, no contractures, Neuro: no gross focal neuro deficits Psych: Alert, oriented, appropriate affect Discharge Diagnosis: #Chest pain, rule out ACS #Coronavirus PCR positive #Mild COPD exacerbation Chronic conditions: A. fib, hypertension, hyperlipidemia Patient Condition at Discharge: Stable Plan - Discharge Summary Discharge Rx Participant: No New Discharge Prescriptions: Continue Fenofibrate [Lofibra] 160 mg PO DAILY Omeprazole 40 mg PO DAILY Atorvastatin [Lipitor] 10 mg PO HS Aspirin 81 mg PO DAILY Rivaroxaban [Xarelto] 20 mg PO DAILY Metoprolol Tartrate [Lopressor] 25 - 50 mg PO BID PRN PRN Reason: high BP Albuterol Sulfate [Proair Hfa] 2 puff INHALATION RT-Q6H PRN #1 each PRN Reason: Shortness Of Breath Escitalopram [Lexapro] 20 mg PO DAILY Ferrous Sulfate [Iron (65 MG Elemental)] 325 mg PO HS Cyclobenzaprine [Flexeril] 10 mg PO TID PRN PRN Reason: Pain Tamsulosin HCl [Flomax] 0.4 mg PO HS Gabapentin [Neurontin] 300 mg PO TID Ondansetron [Zofran] 4 mg PO Q12HR PRN PRN Reason: Nausea hydrOXYzine HCL [Atarax] 25 mg PO TID PRN PRN Reason: Anxiety Ipratropium-Albuterol Nebulize [Duoneb 0.5 mg-3 mg/3 ml Soln] 3 ml INHALATION RT-QID 30 Days #360 ml Fluticasone/Umeclidin/Vilanter [Trelegy Ellipta 100-62.5-25] 1 puff INHALATION RT-DAILY 30 Days #1 each Discharge Medication List Fenofibrate [Lofibra] 160 mg PO DAILY 11/07/13 [History] Atorvastatin [Lipitor] 10 mg PO HS 05/23/15 [History] Omeprazole 40 mg PO DAILY 05/23/15 [History] Aspirin 81 mg PO DAILY 03/24/20 [History] Metoprolol Tartrate [Lopressor] 25 - 50 mg PO BID PRN 03/24/20 [History] Rivaroxaban [Xarelto] 20 mg PO DAILY 03/24/20 [History] Cyclobenzaprine [Flexeril] 10 mg PO TID PRN 01/25/21 [History] Ferrous Sulfate [Iron (65 MG Elemental)] 325 mg PO HS 01/25/21 [History] Tamsulosin HCl [Flomax] 0.4 mg PO HS 01/25/21 [History] Gabapentin [Neurontin] 300 mg PO TID 12/05/21 [History] Ondansetron [Zofran] 4 mg PO Q12HR PRN 12/05/21 [History] hydrOXYzine HCL [Atarax] 25 mg PO TID PRN 03/28/22 [History] Albuterol Sulfate [Proair Hfa] 2 puff INHALATION RT-Q6H PRN #1 each 03/30/22 [R x] Fluticasone/Umeclidin/Vilanter [Trelegy Ellipta 100-62.5-25] 1 puff INHALATION RT-DAILY 30 Days #1 each 03/30/22 [Rx] Ipratropium-Albuterol Nebulize [Duoneb 0.5 mg-3 mg/3 ml Soln] 3 ml INHALATION R T-QID 30 Days #360 ml 03/30/22 [Rx] Escitalopram [Lexapro] 20 mg PO DAILY 05/13/22 [History] Follow up Appointment(s)/Referral(s): None,Stated [Primary Care Provider] - 1-2 days Олег Albarran MD [STAFF PHYSICIAN] - 3 Weeks Activity/Diet/Wound Care/Special Instructions: Diet: Cardiac FU PCP within 1-2 days of DC. FU Cardiology within 1 week of DC. Take all medications as advised. Come back to the ED for worsening chest pain, shortness of breath, palpitations, lightheadedness. Discharge Disposition: HOME SELF-CARE
[2022-05-14] MEDS ORDERED: ATORVASTATIN 10 MG TAB PO SCH (21:00)
[2022-05-14] MEDS ORDERED: TAMSULOSIN 0.4 MG CAP.ER.24H PO SCH (21:00)
[2022-05-15] MEDS ORDERED: TIOTROPIUM 2.5 MCG INHALER INHALATION SCH (08:00)
== END 2022-05-14 16:10 | disposition home or self-care (01) ==
LOC: EC 14:40 → INTOOBSV 18:36 → 3SCARD 18:36
PROVIDERS: ADMIT Family Medicine; ATTEND Family Medicine
DX: R07.9 Chest pain, unspecified (principal); U07.1 COVID-19; J44.1 Chronic obstructive pulmonary disease with (acute) exacerbation; K21.9 Gastro-esophageal reflux disease without esophagitis; E78.5 Hyperlipidemia, unspecified; G40.909 Epilepsy, unspecified, not intractable, without status epilepticus; F32.A Depression, unspecified; F41.9 Anxiety disorder, unspecified; I48.0 Paroxysmal atrial fibrillation; I10 Essential (primary) hypertension; N40.0 Benign prostatic hyperplasia without lower urinary tract symptoms; I73.9 Peripheral vascular disease, unspecified; J84.10 Pulmonary fibrosis, unspecified; F17.210 Nicotine dependence, cigarettes, uncomplicated; Z79.899 Other long term (current) drug therapy; Z79.82 Long term (current) use of aspirin; Z79.01 Long term (current) use of anticoagulants; Z88.0 Allergy status to penicillin; Z82.5 Family history of asthma and other chronic lower respiratory diseases
CPT/HCPCS: 96374; 96375; 99285; 36415; 94640 ×3; 93005; 83880; 80053; 84484 ×2; 85025; 85610; 85730; 87635; 71046; G0378 ×2; J2270; J2930

== ENCOUNTER 2022-05-18 21:11 | Emergency (ER) | payer MEDICARE ==
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
--- NOTE | 2022-05-18 22:09 | CT ---
EXAMINATION TYPE: CT brain wo con DATE OF EXAM: 05/18/2022 COMPARISON: None HISTORY: head injury, left side brusing and swelling CT DLP: 1220.4 mGycm Automated exposure control for dose reduction was used. Images obtained of the brain with no contrast. Ventricles have normal size. There is no mass effect or midline shift. No sign of intracranial hemorr yoni. There is left lateral periorbital soft tissue swelling. Skull base is intact. There is normal a eration of the mastoid sinuses. IMPRESSION: Left-sided periorbital scalp swelling. No acute intracranial abnormality.
[2022-05-18] MEDS ORDERED: HYDROcodone/APAP 5-325MG 1 EACH TAB PO STA (22:43)
[2022-05-18 22:47] VITALS: BP 111/80; PULSE 71; RESP 18; TEMP 98.1
== END 2022-05-18 22:52 | disposition home or self-care (01) ==
LOC: EC 21:11
DX: S00.93XA Contusion of unspecified part of head, initial encounter (principal); J44.9 Chronic obstructive pulmonary disease, unspecified; K21.9 Gastro-esophageal reflux disease without esophagitis; E78.5 Hyperlipidemia, unspecified; M19.90 Unspecified osteoarthritis, unspecified site; F41.9 Anxiety disorder, unspecified; F32.A Depression, unspecified; F17.200 Nicotine dependence, unspecified, uncomplicated; Z88.0 Allergy status to penicillin; Z91.030 Bee allergy status; Z91.048 Other nonmedicinal substance allergy status; Z79.82 Long term (current) use of aspirin; Z79.899 Other long term (current) drug therapy; Z79.51 Long term (current) use of inhaled steroids; W01.0XXA Fall on same level from slipping, tripping and stumbling without subsequent striking against object, initial encounter
CPT/HCPCS: 70450; 99284

== ENCOUNTER 2022-06-17 17:37 | Emergency (ER) | payer MEDICARE ==
[2022-06-17 18:30] VITALS: TEMP 98
--- NOTE | 2022-06-17 18:52 | XR ---
EXAMINATION TYPE: XR Hip Complete RT DATE OF EXAM: 06/17/2022 6:42 PM INDICATION: Patient age:Male; 61 years old; Reason for study: pain COMPARISON: None. TECHNIQUE: The right hip was examined in the frontal and lateral projections FINDINGS: Joint space narrowing osteophyte formation of the acetabulum. Surgical clips present. No ev idence for acute process, joint dislocation or significant soft tissue swelling. IMPRESSION: 1. No acute process. 2. Mild osteoarthrosis of the right hip.
[2022-06-17] MEDS ORDERED: HYDROcodone/APAP 5-325MG 1 EACH TAB PO STA (20:49)
[2022-06-17] MEDS ORDERED: ACET/COD 300 MG/30 MG STARTER PACK 6 TAB BTL PO STA (20:49)
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
[2022-06-17 21:37] VITALS: BP 140/82; PULSE 88; RESP 18
== END 2022-06-17 21:30 | disposition home or self-care (01) ==
LOC: EC 17:37
DX: G89.29 Other chronic pain (principal); M25.552 Pain in left hip; E78.5 Hyperlipidemia, unspecified; F17.200 Nicotine dependence, unspecified, uncomplicated; K21.9 Gastro-esophageal reflux disease without esophagitis; F41.9 Anxiety disorder, unspecified; G40.909 Epilepsy, unspecified, not intractable, without status epilepticus; Z88.0 Allergy status to penicillin; Z91.030 Bee allergy status; Z91.048 Other nonmedicinal substance allergy status; Z72.89 Other problems related to lifestyle; Z79.82 Long term (current) use of aspirin; Z79.899 Other long term (current) drug therapy; Z79.891 Long term (current) use of opiate analgesic; Z79.811 Long term (current) use of aromatase inhibitors
CPT/HCPCS: 73502; 99284

== ENCOUNTER 2022-06-23 21:06 | Emergency (ER) | payer MEDICARE ==
[2022-06-23] MEDS ORDERED: methylPREDNISolone SOD SUCCI 125 MG/2 ML VIAL IV STA (21:24)
[2022-06-23] MEDS ORDERED: IPRATROPIUM-ALBUTEROL 3 ML NEB INHALATION STA (21:24)
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
[2022-06-23 21:43] LABS: Anisocytosis Slight; Basophils # (A) 0.2 k/uL (0-0.2); Basophils % (A) 2 %; Eosinophils # (A) 0.1 k/uL (0-0.7); Eosinophils % (A) 1 %; HCT 35.8 % (39.0-53.0); HGB 11.9 gm/dL (13.0-17.5); Lymphocytes # (A) 0.3 k/uL (1.0-4.8); Lymphocytes % (A) 4 %; MCH 28.7 pg (25.0-35.0); MCHC 33.3 g/dL (31.0-37.0); MCV 86.1 fL (80.0-100.0); Mean Platelet Volume 9.1; Monocytes # (A) 0.3 k/uL (0-1.0); Monocytes % (A) 4 %; Neutrophils % (A) 87 %; Platelet Count 198 k/uL (150-450); RBC 4.16 m/uL (4.30-5.90); RDW 17.6 % (11.5-15.5)
[2022-06-23 21:55] LABS: ALT 15 U/L (4-49); AST 38 U/L (17-59); African American GFR (CKD) >90 (>60 ml/min/1.73 sqM); Albumin 4.1 g/dL (3.5-5.0); Alkaline Phosphatase 61 U/L (38-126); Anion Gap 8 mmol/L; Blood Urea Nitrogen 12 mg/dL (9-20); Calcium 8.5 mg/dL (8.4-10.2); Carbon Dioxide 27 mmol/L (22-30); Chloride 104 mmol/L (98-107); Glucose 115 mg/dL (74-99); Magnesium 1.6 mg/dL (1.6-2.3); Non-African American GFR(CKD) 86 (>60 ml/min/1.73 sqM); Potassium 3.6 mmol/L (3.5-5.1); Sodium 139 mmol/L (137-145); Total Bilirubin 0.2 mg/dL (0.2-1.3); Total Protein 6.8 g/dL (6.3-8.2)
[2022-06-23 21:58] LABS: INR 1.2 (<1.2); Partial Thromboplastin Time 36.3 sec (22.0-30.0); Prothrombin Time 12.3 sec (9.0-12.0)
--- NOTE | 2022-06-23 22:03 | XR ---
EXAMINATION TYPE: XR chest 2V DATE OF EXAM: 06/23/2022 COMPARISON: 05/13/2022 HISTORY: Short of breath TECHNIQUE: FINDINGS: Heart is normal. Lungs are clear of consolidation. There is emphysematous changes in the up per lobes. There are no hilar masses. There is flattening of the diaphragm. There are no hilar masses . Bony thorax is intact. There are some reticular density in the upper lobes. IMPRESSION: Emphysema and mild primary fibrosis. Normal heart. No significant change. No acute lung d isease.
[2022-06-23] MEDS ORDERED: ONDANSETRON 4 MG/2 ML VIAL IVP STA (22:17)
[2022-06-23] MEDS ORDERED: MORPHINE SULFATE 2 MG/ML SYRINGE IVP ONE (22:17)
[2022-06-23] MEDS ORDERED: ACETAMINOPHEN TAB 500 MG TAB PO STA (23:31)
[2022-06-23] MEDS ORDERED: AZITHROMYCIN 250 MG TAB PO STA (23:31)
[2022-06-24 00:38] VITALS: BP 103/71; PULSE 71; RESP 18; TEMP 99.4
== END 2022-06-24 00:38 | disposition home or self-care (01) ==
LOC: EC 21:06
DX: J44.1 Chronic obstructive pulmonary disease with (acute) exacerbation (principal); E78.5 Hyperlipidemia, unspecified; K21.9 Gastro-esophageal reflux disease without esophagitis; M19.90 Unspecified osteoarthritis, unspecified site; F41.9 Anxiety disorder, unspecified; F32.A Depression, unspecified; F12.90 Cannabis use, unspecified, uncomplicated; F17.200 Nicotine dependence, unspecified, uncomplicated; Z20.828 Contact with and (suspected) exposure to other viral communicable diseases; Z20.822 Contact with and (suspected) exposure to COVID-19; Z91.030 Bee allergy status; Z88.0 Allergy status to penicillin; Z91.048 Other nonmedicinal substance allergy status; Z79.82 Long term (current) use of aspirin; Z79.899 Other long term (current) drug therapy
CPT/HCPCS: 36415; 94640; 93005; 80053; 83735; 84484; 85025; 85610; 85730; 87636; 71046; 99285; 96374; 96375 ×2; J2930; J2405; J2270

== ENCOUNTER 2022-08-10 13:42 | Emergency (ER) | payer MEDICARE ==
[2022-08-10 13:47] VITALS: BP 121/69; RESP 18; TEMP 98.6
[2022-08-10] MEDS ORDERED: SODIUM CHLORIDE 0.9% 1,000 ML IV STA (14:05)
[2022-08-10] MEDS ORDERED: ONDANSETRON 4 MG/2 ML VIAL IVP STA (14:05)
[2022-08-10] MEDS ORDERED: HYDROmorphone 0.5 MG/0.5 ML SYRINGE IVP STA ×2 (14:06→15:58)
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
[2022-08-10 14:48] LABS: ALT 16 U/L (4-49); AST 24 U/L (17-59); African American GFR (CKD) >90 (>60 ml/min/1.73 sqM); Albumin 4.2 g/dL (3.5-5.0); Alkaline Phosphatase 65 U/L (38-126); Amylase 76 U/L (30-110); Anion Gap 5 mmol/L; Blood Urea Nitrogen 13 mg/dL (9-20); Calcium 8.8 mg/dL (8.4-10.2); Carbon Dioxide 30 mmol/L (22-30); Chloride 106 mmol/L (98-107); Glucose 118 mg/dL (74-99); Lipase 29 U/L (23-300); Non-African American GFR(CKD) >90 (>60 ml/min/1.73 sqM); Potassium 3.5 mmol/L (3.5-5.1); Sodium 141 mmol/L (137-145); Total Bilirubin 0.3 mg/dL (0.2-1.3); Total Protein 6.9 g/dL (6.3-8.2)
[2022-08-10 15:00] LABS: Anisocytosis Slight; Basophils # (A) 0.1 k/uL (0-0.2); Basophils % (A) 1 %; Eosinophils # (A) 0.1 k/uL (0-0.7); Eosinophils % (A) 1 %; HCT 38.9 % (39.0-53.0); HGB 12.4 gm/dL (13.0-17.5); Lymphocytes # (A) 0.9 k/uL (1.0-4.8); Lymphocytes % (A) 11 %; MCH 27.5 pg (25.0-35.0); MCHC 31.9 g/dL (31.0-37.0); MCV 86.1 fL (80.0-100.0); Mean Platelet Volume 8.4; Monocytes # (A) 0.4 k/uL (0-1.0); Monocytes % (A) 5 %; Neutrophils # (A) 6.1 k/uL (1.3-7.7); Neutrophils % (A) 80 %; Platelet Count 218 k/uL (150-450); RBC 4.51 m/uL (4.30-5.90); RDW 16.6 % (11.5-15.5); WBC 7.6 k/uL (3.8-10.6)
--- NOTE | 2022-08-10 15:49 | CT ---
EXAMINATION TYPE: CT abdomen pelvis w con DATE OF EXAM: 08/10/2022 COMPARISON: 09/26/2021 HISTORY: left sided abdominal/flank/rib pain CT DLP: 680.7 mGycm Automated exposure control for dose reduction was used. CONTRAST: Performed with IV Contrast, patient injected with 100 mL of Isovue 300. Images obtained from the diaphragm to the floor the pelvis with the IV contrast. Lung bases are clear. No pleural effusion. Heart size is normal. No pericardial effusion. Liver spleen pancreas appear intact. The bile duct are not dilated. Gallbladder appears normal. Stoma ch is intact. No pancreatic mass. There is no adrenal mass. There is 2.3 cm cortical cyst lower pole left kidney. Kidneys show satisfac tory contrast opacification. No hydronephrosis. Delayed images show very little renal excretion. No r etroperitoneal adenopathy. Bladder distends smoothly. There is prostatic calcifications or implants. No inguinal hernia. There is no mesenteric edema. No ascites or free air. No sign of a bowel obstruction. Appendix not se en. There are spondylotic changes in the lumbar spine. There is moderate narrowing at L3-4 disc space. Th ere is mild lumbar hypertrophic facet arthropathy. Bony pelvis is intact. The hip joints are intact. Abdominal aorta is atheromatous. There is aortoiliac bypass grafts. IMPRESSION: Atherosclerotic vascular disease. Decreased excretion on the delayed images that could relate to some degree of renal failure. There is clearing of the left renal calculus compared to old exam. No renal atrophy. Left renal cyst without change in size.
[2022-08-10] MEDS ORDERED: ACET/COD 300 MG/30 MG STARTER PACK 6 TAB BTL PO STA (15:58)
[2022-08-10] MEDS ORDERED: methylPREDNISolone SOD SUCCI 125 MG/2 ML VIAL IV STA (15:58)
[2022-08-10 16:29] VITALS: PULSE 69
== END 2022-08-10 16:30 | disposition home or self-care (01) ==
LOC: EC 13:42
DX: M54.16 Radiculopathy, lumbar region (principal); R07.82 Intercostal pain; J44.9 Chronic obstructive pulmonary disease, unspecified; K21.9 Gastro-esophageal reflux disease without esophagitis; E78.5 Hyperlipidemia, unspecified; M19.90 Unspecified osteoarthritis, unspecified site; G40.909 Epilepsy, unspecified, not intractable, without status epilepticus; F41.9 Anxiety disorder, unspecified; F32.A Depression, unspecified; F17.200 Nicotine dependence, unspecified, uncomplicated; F12.90 Cannabis use, unspecified, uncomplicated; Z88.0 Allergy status to penicillin; Z91.030 Bee allergy status; Z91.048 Other nonmedicinal substance allergy status; Z79.899 Other long term (current) drug therapy; Z79.82 Long term (current) use of aspirin
CPT/HCPCS: 36415; 93005; 80053; 82150; 83690; 84484; 85025; 74177; 99284; 96374; 96375 ×2; 96376; 96361 ×2; J2930; J2405; J1170; Q9967

== ENCOUNTER → 2022-10-04 | Outpatient (CLI) | payer MEDICARE ==
--- NOTE | 2022-10-08 11:13 | MR ---
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 COMPARISON: MRI kidney 05/06/2022, CT 08/10/2022 TECHNIQUE: Multiplanar multi-sequence imaging was per formed without contrast. Post contrast imaging was performed. Post IV contrast subtraction images we re also submitted for review. IV Contrast: 6 cc Gadavist FINDINGS: LOWER CHEST: No gross irregularity. ABDOMEN Liver: Unremarkable. Gallbladder and Bile ducts: Unremarkable. Pancreas: Unremarkable. Spleen: Unremarkable. Adrenal glands: Unremarkable. Kidneys: Redemonstration of left lower renal cortex neoplasm which is low T2 and T1 iso signal to kristina kground renal cortex. This area measures similarly at 2.6 x 1.6 x 2.2 cm postcontrast subtraction paul ging was performed and does demonstrate enhancement. Stomach and Bowel: Unremarkable as visualized. Peritoneum: No evidence of pneumoperitoneum, free fluid, or adenopathy. Vasculature: Common iliac vascular pedicle changes bilaterally noted. No aortic aneurysm. Abdominal wall: Unremarkable. Musculoskeletal: The osseous structures appear intact. Dextroscoliosis apex L3. IMPRESSION: Similar left lower pole hypoenhancing renal mass which is felt to be similar in size. Postcontrast vences btraction imaging was performed and the lesion is confirmed to have an enhancement and remains concer beatrice for hypoenhancing renal neoplasm such as chromophobe or papillary renal cell carcinoma.
== END | disposition home or self-care (01) ==
LOC: RADMRIMAIN 15:18
PROVIDERS: ATTEND Urology
DX: D41.02 Neoplasm of uncertain behavior of left kidney (principal); N28.89 Other specified disorders of kidney and ureter
CPT/HCPCS: 74183; A9585

== ENCOUNTER → 2022-10-29 | Outpatient (CLI) | payer MEDICARE ==
--- NOTE | 2022-10-30 08:05 | MR ---
EXAMINATION TYPE: MR lumbar spine wo con DATE OF EXAM: 10/29/2022 COMPARISON: Prior MRI lumbar spine 2016. CT abdomen and pelvis August 10, 2022 HISTORY: Low back pain, leg spasms. TECHNIQUE: Multiplanar, multisequence imaging of the lumbar spine is performed without IV contrast. FINDINGS: Dextroconvex scoliosis centered at L2-L3 level is redemonstrated. Persistent grade 1 retrol isthesis L3 on L4 and L4 on L5. Sagittal images of the lumbar spine show vertebral body heights to re main satisfactory. Multilevel disc desiccation and disc space narrowing that is fairly moderate to ad vanced at L3-L4 through the L5-S1 levels. The conus medullaris remain stable in position ending at m id T12 level. Overall heterogeneity of bone marrow signal intensity. Mild to moderate multilevel ante rior spurring is redemonstrated. Axial images T12-L1 level redemonstrated mild broad disc bulge mildly effacing anterior thecal sac. N o significant change from prior MRI. Axial images at L1-L2 level demonstrate mild to moderate broad disc bulge mildly effacing the anterio r thecal sac with patent bilateral neural foramina. No significant change from prior. Axial images at L2-L3 level shows mild to moderate broad disc bulge mildly effaces the anterior theca l sac along with mild to moderate facet arthropathy and ligamentum flavum hypertrophy effacing the le ft posterior lateral thecal sac. Findings are more prominent than prior study with mild to moderate l eft-sided anterior inferior neural foraminal narrowing seen. Axial images at L3-L4 level shows spondylolisthesis and mild/moderate broad disc bulge with mild-to-m oderate facet arthropathy and ligamentum flavum hypertrophy. There is some effacement of the anterior and the posterior lateral thecal sac. There is mild bilateral neural foraminal narrowing. No signifi cant change from prior MRI. Axial images at L4-L5 level. Spondylolisthesis with right lateral disc protrusion and [id number] e facet arthropathy and ligamentum flavum hypertrophy effacing the posterior lateral thecal sac great er on the right with moderate to severe right-sided neural foraminal narrowing and encroachment on th e right L4 nerve. Findings more prominent from prior. Axial images at the L5-S1 level shows moderate right greater than left facet arthropathy. There is fo lasha right paracentral disc protrusion but spinal canal is preserved. There is [id number] bilate ral neural foraminal narrowing. No significant change from prior. Paraspinal muscle bulk is maintained. IMPRESSION: Multilevel spondylolisthesis and degenerative change of the lumbar spine as detailed abov e. Areas of interval degenerative progression noted from 2017 MRI.
== END | disposition home or self-care (01) ==
LOC: RADMRIMAIN 20:30
PROVIDERS: ATTEND Nurse Practitioner Family
DX: M51.16 Intervertebral disc disorders with radiculopathy, lumbar region (principal); M47.27 Other spondylosis with radiculopathy, lumbosacral region; M99.73 Connective tissue and disc stenosis of intervertebral foramina of lumbar region; M43.16 Spondylolisthesis, lumbar region
CPT/HCPCS: 72148

== ENCOUNTER → 2023-01-21 | Outpatient (CLI) | payer MEDICARE ==
--- NOTE | 2023-01-21 16:05 | CTL ---
EXAMINATION TYPE: CT Low Dose Lung DATE OF EXAM ORDERED: 01/21/2023 HISTORY: Current smoker. Lung cancer screening CT DLP: 60.[address] CTDI: 1.4 mGy Automated exposure control for dose reduction was used. SCREENING VISIT: Initial COMPARISON: 01/25/2021 CTA chest TECHNIQUE: Low dose computed tomography scan was performed through the chest at 1 mm thick sections a nd reconstructed images in the coronal plane at [address] DIAGNOSTIC QUALITY: Satisfactory FINDINGS: LUNG NODULES: Present, detailed below: 1. There is a 2.2 x 1.0 cm triangular density within the posterior left upper lung field. Series 6 im age 14 2. There is a 3.0 x 1.4 lobular density within the posterior left apex. Series 6 image 14. 3. There is a lobular 2.6 x 1.4 cm density within the mid left upper lung field. Series 6 image 15. 4. There is a oval density with mildly irregular margins measuring 1.9 x 0.9 cm posterior right uppe r lung field. Series 6 image 17. 5. There is a linear density with a width of 0.7 cm posterior left upper lung field. Series 6 image 2 1. 6. There is a pleural-based density within the lingula measuring 2.8 x 2.4 cm. Series 6 image 51. Th is is new. 7. There is a 0.6 cm density with surrounding pneumonitis change in the peripheral left mid lung. Se gentry 6 image 41. This is new. 8. There is a 0.8 cm nodule within the lateral left lung. Series 6 image 59. There is some scattered nonspecific areas of pneumonitis lung slater. Largest of these appears to be within the lateral lingula. Previous posterior left lower lobe infiltrate has resolved. LUNGS: COPD: Severity: Severe Fibrosis: Severity: Moderate Lymph nodes: Lymph node at the upper limits of normal for size, largest measuring 0.9 cm in the pretr acheal space. Other findings: None RIGHT PLEURAL SPACE: Effusion: None Calcification: None Thickening: None Pneumothorax: None LEFT PLEURAL SPACE: Effusion: None Calcification: None Thickening: None Pneumothorax: None HEART: Heart Size: Normal Coronary calcification: Mild Pericardial effusion: None OTHER FINDINGS: Upper abdomen: Nonobstructing left renal stones. Dense calcification within the aorta Bony thorax: Normal Supraclavicular region: Normal Other: Ascending thoracic aorta at the level the main pulmonary artery measures 3.7 cm. The main pul monary artery at the bifurcation measures 3.0 cm. IMPRESSION: 1. New pleural-based density lingula. Additional workup with PET CT recommended. Neoplasm cannot be e xcluded. 2. Additional findings appear to be present previously and are relatively stable. FOLLOW UP CT CHEST RECOMMENDATION: Follow up PET/CT, attention lingular pleural-based density CT LUNG RAD: Lung-Rad 4A Suspicious
== END | disposition home or self-care (01) ==
LOC: RADCTMAIN 14:00
PROVIDERS: ATTEND Family Medicine
DX: Z12.2 Encounter for screening for malignant neoplasm of respiratory organs (principal); F17.210 Nicotine dependence, cigarettes, uncomplicated; J98.4 Other disorders of lung
CPT/HCPCS: 71271

== ENCOUNTER 2023-01-30 13:32 | Observation (INO) | payer MEDICARE, OTHER ==
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
[2023-01-30] MEDS ORDERED: MORPHINE SULFATE 4 MG/ML SYRINGE IVP STA (14:24)
[2023-01-30 14:30] LABS: Anisocytosis Slight; Basophils # (A) 0.1 k/uL (0-0.2); Basophils % (A) 1 %; Eosinophils # (A) 0.2 k/uL (0-0.7); Eosinophils % (A) 3 %; HCT 40.4 % (39.0-53.0); HGB 12.6 gm/dL (13.0-17.5); Lymphocytes # (A) 0.9 k/uL (1.0-4.8); Lymphocytes % (A) 14 %; MCH 27.5 pg (25.0-35.0); MCHC 31.2 g/dL (31.0-37.0); MCV 88.2 fL (80.0-100.0); Mean Platelet Volume 8.8; Monocytes # (A) 0.4 k/uL (0-1.0); Monocytes % (A) 5 %; Neutrophils # (A) 4.9 k/uL (1.3-7.7); Neutrophils % (A) 74 %; Platelet Count 255 k/uL (150-450); RBC 4.58 m/uL (4.30-5.90); RDW 16.8 % (11.5-15.5); WBC 6.7 k/uL (3.8-10.6)
[2023-01-30 14:40] LABS: ALT 14 U/L (4-49); AST 24 U/L (17-59); African American GFR (CKD) >90 (>60 ml/min/1.73 sqM); Albumin 4.1 g/dL (3.5-5.0); Alkaline Phosphatase 61 U/L (38-126); Anion Gap 6 mmol/L; Blood Urea Nitrogen 23 mg/dL (9-20); Calcium 8.8 mg/dL (8.4-10.2); Carbon Dioxide 31 mmol/L (22-30); Chloride 101 mmol/L (98-107); Glucose 131 mg/dL (74-99); Lipase 78 U/L (23-300); Magnesium 1.8 mg/dL (1.6-2.3); Non-African American GFR(CKD) >90 (>60 ml/min/1.73 sqM); Potassium 4.7 mmol/L (3.5-5.1); Sodium 138 mmol/L (137-145); Total Bilirubin 0.3 mg/dL (0.2-1.3); Total Protein 7.2 g/dL (6.3-8.2)
[2023-01-30 14:48] LABS: NT-Pro-B-Type Natriuretic Pept 25 pg/mL
[2023-01-30 14:52] LABS: Partial Thromboplastin Time 22.1 sec (22.0-30.0); Prothrombin Time 10.9 sec (9.0-12.0)
--- NOTE | 2023-01-30 15:54 | CT ---
EXAMINATION TYPE: CT chest angio for PE CT DLP: 268.7 mGycm, Automated exposure control for dose reduction was used. DATE OF EXAM: 01/30/2023 3:46 PM COMPARISON: 01/21/2023 CT chest. 01/25/2021 CT. CLINICAL INDICATION:Male, 62 years old with history of chest pain; chest pain TECHNIQUE/CONTRAST: CTA scan of the thorax is performed with IV Contrast, patient injected with 100 mL of Isovue 370, MIP images are created and reviewed these are created on a separate workstation.. FINDINGS: Pulmonary Artery: There is no evidence for a filling defect within the pulmonary vasculature to sugge st acute pulmonary embolism. The pulmonary artery is of normal size. Lungs/Pleura: Improvement in airspace disease seen on prior lingula. Moderate to severe centrilobular emphysema changes throughout the lungs. Consolidation likely nodular changes in the upper lungs as s een dating back to at least 01/25/2021. No evidence of focal consolidation, pleural effusion or pneumo thorax. Airway: Large airways are patent. Heart: Heart is within normal limits for size. Vasculature: No evidence of aortic aneurysm. Mediastinum: No gross evidence of adenopathy. Musculoskeletal: Moderate degenerative disc disease changes are present throughout the thoracolumbar spine. Soft Tissues: Unremarkable. Lower neck: No significant findings. Upper Abdomen: No significant findings. IMPRESSION: 1. No evidence of pulmonary embolism. 2. Interval improvement of lingular airspace disease seen on 01/21/2023. 3. Moderate to severe emphysema changes. 4. Scarring changes in the upper lungs with consolidation/masslike change similar back to 2020.
[2023-01-30] MEDS ORDERED: NALOXONE 0.4 MG/ML 1 ML VIAL IV PRN (16:31)
[2023-01-30] MEDS ORDERED: hydrOXYzine HCL 25 MG TAB PO PRN (16:58)
[2023-01-30] MEDS ORDERED: ALBUTEROL NEBULIZED 2.5 MG/3 ML INHALATION PRN (16:58)
[2023-01-30] MEDS ORDERED: CYCLOBENZAPRINE 10 MG TAB PO PRN (16:58)
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
[2023-01-30] MEDS: NICOTINE 21MG/24HR PATCH TRANSDERM SCH (19:55)
[2023-01-30] MEDS: GABAPENTIN 300 MG CAP PO SCH (19:55)
[2023-01-30] MEDS: METOPROLOL TARTRATE 50 MG TAB PO SCH (19:55)
[2023-01-30] MEDS: busPIRone HCl 10 MG TAB PO SCH (19:55)
[2023-01-30] MEDS: MORPHINE SULFATE 2 MG/ML SYRINGE IVP PRN (22:27)
[2023-01-31] MEDS: MORPHINE SULFATE 2 MG/ML SYRINGE IVP PRN (05:46)
[2023-01-31] MEDS ORDERED: HEPARIN SODIUM,PORCINE (1 ML) 2,500 UNIT in SODIUM CHLORIDE 0.9% 250 ML IRRIGATION PRN (07:00)
[2023-01-31] MEDS ORDERED: HEPARIN SODIUM,PORCINE 10,000 UNIT in SODIUM CHLORIDE 0.9% 1,000 ML IRRIGATION PRN (07:00)
[2023-01-31] MEDS ORDERED: PANTOPRAZOLE 40 MG TABLET PO SCH (07:30)
[2023-01-31] MEDS ORDERED: ALPRAZolam 0.5 MG TAB PO PRN (08:03)
[2023-01-31] MEDS ORDERED: ALPRAZolam 0.25 MG TAB PO PRN (08:03)
[2023-01-31] MEDS ORDERED: NITROGLYCERIN SL TABS 0.4 MG TAB SUBLINGUAL PRN (08:03)
[2023-01-31] MEDS ORDERED: ASPIRIN 325 MG TAB PO STA (08:03)
[2023-01-31] MEDS ORDERED: ATORVASTATIN 80 MG TAB PO STA (08:03)
[2023-01-31 08:35] LABS: Basophils # (A) 0.17 X 10*3/uL (0.00-0.10); Basophils % (A) 2.2 %; Eosinophils % (A) 2.6 %; HGB 13.4 d/dL (13.0-17.0); Lymphocytes # (A) 1.42 X 10*3/uL (0.90-5.00); Lymphocytes % (A) 18.5 %; MCH 27.8 pg (27.0-32.0); MCHC 32.7 d/dL (32.0-37.0); MCV 85.1 FL (80.0-97.0); Mean Platelet Volume 10.5 FL (9.5-12.2); Monocytes # (A) 0.54 X 10*3/uL (0.20-1.00); NRBC Per 100 WBC 0 X 10*3/uL (0.00-0.01); Neutrophils # (A) 5.33 X 10*3/uL (1.80-7.70); Neutrophils % (A) 69.4 %; Platelet Count 292 X 10*3/uL (140-440); RBC 4.82 X 10*6/uL (4.40-5.60); RDW 17.2 % (11.5-14.5); WBC 7.68 X 10*3/uL (4.50-10.00)
[2023-01-31] MEDS: METOPROLOL TARTRATE 50 MG TAB PO SCH (08:55)
[2023-01-31] MEDS: GABAPENTIN 300 MG CAP PO SCH ×2 (08:55→15:44)
[2023-01-31] MEDS: busPIRone HCl 10 MG TAB PO SCH (08:55)
[2023-01-31] MEDS ORDERED: ESCITALOPRAM 20 MG TAB PO SCH (09:00)
[2023-01-31] MEDS ORDERED: FENOFIBRATE 160 MG TAB PO SCH (09:00)
[2023-01-31] MEDS ORDERED: TAMSULOSIN 0.4 MG CAP.ER.24H PO SCH (09:00)
[2023-01-31] MEDS: RIVAROXABAN 20 MG TAB PO SCH ×2 (09:09→12:44)
[2023-01-31] MEDS: IPRATROPIUM 0.5 MG/2.5 ML NEBU INHALATION SCH ×3 (09:21→15:38)
--- NOTE | 2023-01-31 09:29 | CA ---
Transthoracic Echo Report Name: Reese Torrez Age: 62 Gender: M : 1960 Exam Date: 01/31/2023 07:31 Exam Location: [place] [facility] Ht (in): 74 Wt (lb): 148 Ordering Physician: Theron Nickerson Attending/Referring Phys: Eyelet Punch Operator Elma Zapien RDCS Procedure CPT: Indications: Assessment and function of heart Cardiac Hx: Technical Quality: Good Contrast 1: Total Dose (mL): Contrast 2: Total Dose (mL): MEASUREMENTS (Male / Female) Normal Values 2D ECHO LV Diastolic Diameter PLAX 4.1 cm 4.2 - 5.9 / 3.9 - 5.3 cm LV Systolic Diameter PLAX 2.8 cm IVS Diastolic Thickness 1.0 cm 0.6 - 1.0 / 0.6 - 0.9 cm LVPW Diastolic Thickness 1.0 cm 0.6 - 1.0 / 0.6 - 0.9 cm LV Relative Wall Thickness 0.5 RV Internal Dim ED PLAX 3.7 cm LA Systolic Diameter LX 3.0 cm 3.0 - 4.0 / 2.7 - 3.8 cm LV Diastolic Volume MOD 4C 48.5 cm??? LV Systolic Volume MOD 4C 12.9 cm??? LV Ejection Fraction MOD 4C 73.4 % LV Cardiac Index MOD 4C 1034.3 cm???/min???m??? LV Diastolic Length 4C 8.6 cm LV Systolic Length 4C 6.9 cm LV Diastolic Volume MOD 2C 75.6 cm??? LV Systolic Volume MOD 2C 20.7 cm??? LV Ejection Fraction MOD 2C 72.6 % LV Cardiac Index MOD 2C 1595.7 cm???/min???m??? LV Diastolic Length 2C 8.1 cm LV Systolic Length 2C 6.8 cm LA Volume 25.0 cm??? 18 - 58 / 22 - 52 cm??? M-MODE Aortic Root Diameter MM 3.8 cm MV E Point Septal Separation 0.9 cm AV Cusp Separation MM 1.9 cm DOPPLER AV Peak Velocity 118.0 cm/s AV Peak Gradient 5.6 mmHg MV Area PHT 2.6 cm??? Mitral E Point Velocity 68.0 cm/s Mitral A Point Velocity 62.9 cm/s Mitral E to A Ratio 1.1 MV Deceleration Time 288.4 ms MV E' Velocity 8.7 cm/s Mitral E to MV E' Ratio 7.8 FINDINGS Left Ventricle Left ventricular ejection fraction is estimated at 60-65 %. Left ventricular cavity size normal. Left ventricular wall thickness normal. Normal left ventricular wall motion. Right Ventricle Mild right ventricular dilatation. Unable to estimate the right ventricular systolic pressure. Right Atrium Normal right atrial size. Left Atrium Normal left atrial size. Mitral Valve Structurally normal mitral valve. No mitral stenosis, or prolapse.trace to mild mitral regurgitation. Aortic Valve Trileaflet aortic valve. No aortic valve stenosis or regurgitation. Tricuspid Valve Structurally normal tricuspid valve. No tricuspid regurgitation. Pulmonic Valve Structurally normal pulmonic valve. No pulmonic regurgitation. Pericardium Normal pericardium. No pericardial effusion. Aorta Mild aortic dilatation at the level of the sinuses of valsalva 38 mm CONCLUSIONS 1. Normal left ventricular size and function 2. Trace to mild mitral regurgitation Previewed by: Dr. Je Recinos MD (Electronically Signed) Final Date: 31 January 2023 09:27
[2023-01-31 09:52] LABS: BUN/Creat Ratio 16.82 Ratio (12.00-20.00); Blood Urea Nitrogen 18.5 mg/dL (9.0-27.0); Calcium 9.5 mg/dL (8.7-10.3); Carbon Dioxide 26.2 mmol/L (21.6-31.8); Chloride 103 mmol/L (96-109); Glucose 95 mg/dL (70-110); Potassium 4.7 mmol/L (3.5-5.5); Sodium 138 mmol/L (135-145)
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
[2023-01-31] MEDS ORDERED: fentaNYL (PF) 50 MCG/ML 2 ML AMP ONE (11:11)
[2023-01-31] MEDS ORDERED: HEPARIN SODIUM 1,000 UN/ML (10ML VL) ONE (11:11)
[2023-01-31] MEDS ORDERED: VERAPAMIL 2.5 MG/ML 2 ML AMP ONE (11:11)
[2023-01-31] MEDS ORDERED: IV FLUID CONTINUATION 1,000 ML IV ONE (11:15)
[2023-01-31] MEDS ORDERED: MIDAZOLAM 2 MG/2 ML VIAL IVP ONE (11:23)
[2023-01-31] MEDS ORDERED: LIDOCAINE 1% INJ 10MG/ML (5 ML VIAL-PF) SQ ONE (11:23)
[2023-01-31] MEDS ORDERED: fentaNYL (PF) 50 MCG/ML 2 ML AMP IVP ONE (11:23)
[2023-01-31] MEDS ORDERED: VERAPAMIL SYRINGE (5 MG/10 ML) INTRAARTER ONE (11:26)
[2023-01-31] MEDS ORDERED: HEPARIN SODIUM 1,000 UN/ML (10ML VL) IV ONE (11:32)
[2023-01-31] MEDS ORDERED: IOPAMIDOL-370 100ML BTL INJ ONE (11:36)
[2023-01-31] MEDS ORDERED: RX INFO: IV CONTRAST WAS GIVEN 1 EACH MISC MISCELLANE PRN (11:44)
[2023-01-31] MEDS ORDERED: SODIUM CHLORIDE 0.9% 1,000 ML IV SCH (11:45)
--- NOTE | 2023-01-31 11:50 | P.CARDCATH ---
Date of Procedure: 01/31/23 Description of Procedure: Cardiac Catheterization: The patient is a 62-year-old male with a known history of severe PAD, hypertension, hyperlipidemia, chronic tobacco use who presented with symptoms of chest discomfort, T-wave inversion inferiorly and normal troponin. Recommendations were made regarding cardiac catheterization, the risks and the complications were discussed with the patient who is in full understanding and agreement. Procedure Description: Patient was brought to mushroom laborer in fasting semi-sedated state after receiving Fentanyl and Benadryl achieiving moderate conscious sedated state. Using Xylocaine Anesthesia and Seldinger technique, a 6-Kyrgyz sheath was introduced in the right radial artery . Subsequently, selective coronary angiography was performed using a 5-Kyrgyz 3.5 bend Brandon catheter. Multiple views of the coronary artery including hemiaxial views were obtained. The right Brandon catheter was used to cross the aortic valve and LVEDP was calculated. Following that, catheter and sheath were removed. Hemostasis was obtained with deployment of TR band . There was no immediate complication. Patient was returned to room in stable condition. Of note, the patient received a total of 3500 units of intravenous heparin as well as intra-arterial verapamil. Findings: Left main: This is a large size vessel, bifurcating into LAD and left circumflex, left main has no obstructive disease LAD: This is a large size vessel, reaching to the apex, giving rise to a diagona l branch, the LAD and branches have no evidence of obstructive disease Left circumflex: Large nondominant vessel rest to 2 obtuse marginal branch, the first one is very proximal, the left circumflex and its branches have no obstructive disease RCA: This is a dominant vessel, bifurcating into PDA and PLV, the right coronary artery disease segment of 20%, the rest of the vessel has no high-grade john nosis. Left Ventriculogram: Not performed Hemodynamics: There was no gradient across the aortic valve, LVEDP was 4-6 mmHg Conclusion: 1. Mild intimal disease in the mid RCA 2. Right dominance 3. Normal LVEDP 4. No obstructive disease in the LAD and left circumflex Recommendations: The patient will continue on present medical therapy with aggressive coronary risks modifications and smoking cessation.. The findings and the recommendations were discussed with the patient and he is in full understanding and agreement. Duration of sedation is 15 minutes.
[2023-01-31 12:01] VITALS: RESP 16
[2023-01-31] MEDS: NICOTINE 21MG/24HR PATCH TRANSDERM SCH (12:43)
[2023-01-31 14:22] VITALS: BMI 19.0
[2023-01-31 14:43] VITALS: TEMP 97.8
[2023-01-31 15:43] VITALS: BP 125/80
[2023-01-31 15:54] VITALS: PULSE 64
--- NOTE | 2023-01-31 16:18 | P.DS ---
Providers Date of admission: 01/30/23 16:35 Expected date of discharge: 01/31/23 Attending physician: Delmar Giron MD Consults: 01/30/23 16:31 Consult Physician Urgent Consulting Provider: [facility] Consult Reason/Comments: acute chest pain, possible acs, ekg changes Do you want consulting provider notified?: Yes Primary care physician: Dre Rhodes MD Hospital Course: Discharge Diagnosis: Chest pain, acute coronary event ruled out. Cardiac workup negative for acute coronary event. Troponins were negative 3 draws at less than 0.012. Echocardiogram revealing normal EF 60-65% with mild mitral regurgitation. Patient underwent cardiac cath revealing mild disease of the RCA with normal LVEDP and no obstructive disease in the LAD or left circumflex. Vortex Operator recommending patient to continue current cardiac medication regimen with aggressive coronary risk modifications such as smoking cessation. Chest pain secondary to pleurisy, CT revealing emphysematous changes. Patient counseled on the importance of smoking cessation and risks of continued use. Abnormal EKG, EKG was completed and reviewed showing sinus bradycardia at [address] elevation in lead 1 and aVL and T-wave inversion in inferior leads 3 and aVF. Paroxysmal atrial fibrillation on anticoagulation with Xarelto Hypertension Hyperlipidemia COPD with advanced emphysema and continued nicotine dependence Peripheral vascular disease status post lower extremity bypass with stenting to right leg. Hospital Course: Patient is a pleasant 62-year-old male with a past medical history of paroxysmal atrial fibrillation on anticoagulation with Xarelto, hypertension, hyperlipidem ia, COPD with continued nicotine dependence, and peripheral vascular disease status post lower extremity bypass with stenting to right leg. Patient presented to the emergency department with complaints of substernal and left anterior chest pain. Patient reported pain began shortly after awakening this morning and describes this pain as "someone constantly squeezing my heart." He reports this pain is constant and states nothing makes it better or worse. He denies having any associated symptoms including fever, chills, diaphoresis, headache, lightheadedness, dizziness, palpitations, increases or changes in chronic shortness of breath, increase or changes in chronic cough or congestion, nausea, vomiting, indigestion, abdominal pain, or experiencing any numbness/tingling/weakness/swelling in his extremities. He underwent full evaluation in the emergency department. Upon arrival patient hypertensive with blood pressure 169/106, heart rate 56, respiratory rate 17, temp 97.6F, SpO2 of 95% on room air. EKG was completed and reviewed showing sinus bradycardia at [address] elevation in lead 1 and aVL and T-wave inversion in inferior leads 3 and aVF. Labs completed and reviewed. CBC showing normocytic anemia with hemoglobin stable at 12.6. BMP revealing hypercarbia with carbon dioxide of 31 consistent with patient's known COPD and slightly elevated BUN of 23. Blood glucose stable at 131. Magnesium normal findings at 1.8. Liver enzymes unremarkable. Troponin negative at less than 0.012. ProBNP 25. Lipase normal finding at 78. Coagulation profile normal findings. D-dimer was elevated at 0.66. CTA was completed negative for pulmonary emboli with moderate to severe emphysema changes. Discussed patient complaint, physical exam findings, laboratory analysis and imaging results in detail with the ED physician. Patient was admitted to observation unit with telemetry and underwent cardiac workup. Cardiology was consulted. Cardiac workup negative for acute coronary event. Troponins were trended overnight and all negative 3 draws at less than 0.012. Patient reports currently chest pain has subsided and denies having any complaints at this time. Patient anxious for discharge. Echocardiogram revealing normal EF 60-65% with mild mitral regurgitation. Patient underwent cardiac cath revealing mild disease of the RCA with normal LVEDP and no obstru ctive disease in the LAD or left circumflex. Vortex Operator recommending patient to continue current cardiac medication regimen with aggressive coronary risk modifications such as smoking cessation. Chest pain secondary to pleurisy, CT revealing emphysematous changes. Patient counseled on the importance of smoking cessation and risks of continued use. Physical exam: Vital signs reviewed and stable. General: Nontoxic, no distress and appears stated age. Patient tall and thin build. Derm: Skin warm and dry, normal coloration for ethnicity. Head: Atraumatic, normocephalic and symmetric. Eyes: EOMs intact, no lid lag, and anicteric sclera Mouth: no lip lesions, mucus membranes moist Cardiovascular: regular rate and rhythm with normal S1S2, soft systolic murmur, positive posterior tibial pulses bilaterally, and cap refill < 2 seconds. Lungs: Respirations even, regular, and unlabored on room air. Lungs diminished bilaterally, no rhonchi, no rales, no wheezing, and no accessory muscle usage. Abdominal: soft, nontender to palpation, no guarding, no appreciable organomegaly Ext: ROM intact. No gross muscle atrophy, no edema, no contractures Neuro: Speech clear, face symmetrical and CN II-XII grossly intact with no noted focal neuro deficits Psych: Alert and oriented to person, place, time, and situation. Appropriate and pleasant affect. A total of 34 minutes of time were spent preparing this complex discharge summary. Pt was discharged on 01/31/23 at 4:09 PM. Patient was seen independently by Nurse Practitioner. This document was prepared using Logopro dictation software. Please allow for errors in chalk machine operator while rare they do occur. Theron Nickerson NP rendered care for this patient independently, reviewed the findings and plan as documented in the note above. I did not physically speak with or examine the patient on this date. Patient Condition at Discharge: Stable Plan - Discharge Summary New Discharge Prescriptions: Continue Fenofibrate [Lofibra] 160 mg PO DAILY Omeprazole 40 mg PO DAILY Atorvastatin [Lipitor] 10 mg PO DAILY Aspirin 81 mg PO DAILY Rivaroxaban [Xarelto] 20 mg PO DAILY Metoprolol Tartrate [Lopressor] 25 - 50 mg PO BID PRN PRN Reason: high BP Albuterol Sulfate [Proair Hfa] 2 puff INHALATION RT-Q6H PRN #1 each PRN Reason: Shortness Of Breath Escitalopram [Lexapro] 20 mg PO DAILY Cyclobenzaprine [Flexeril] 10 mg PO DAILY PRN PRN Reason: Muscle Spasm Magnesium 250 mg PO DAILY Tamsulosin HCl [Flomax] 0.4 mg PO DAILY Gabapentin [Neurontin] 300 mg PO TID hydrOXYzine HCL [Atarax] 25 mg PO TID PRN PRN Reason: Anxiety Fluticasone/Umeclidin/Vilanter [Trelegy Ellipta 100-62.5-25] 1 puff INHALATION RT-DAILY 30 Days #1 each busPIRone HCl [Buspar] 10 mg PO BID Discharge Medication List Fenofibrate [Lofibra] 160 mg PO DAILY 11/07/13 [History] Atorvastatin [Lipitor] 10 mg PO DAILY 05/23/15 [History] Omeprazole 40 mg PO DAILY 05/23/15 [History] Aspirin 81 mg PO DAILY 03/24/20 [History] Metoprolol Tartrate [Lopressor] 25 - 50 mg PO BID PRN 03/24/20 [History] Rivaroxaban [Xarelto] 20 mg PO DAILY 03/24/20 [History] Tamsulosin HCl [Flomax] 0.4 mg PO DAILY 01/25/21 [History] Gabapentin [Neurontin] 300 mg PO TID 12/05/21 [History] hydrOXYzine HCL [Atarax] 25 mg PO TID PRN 03/28/22 [History] Albuterol Sulfate [Proair Hfa] 2 puff INHALATION RT-Q6H PRN #1 each 03/30/22 [Rx] Fluticasone/Umeclidin/Vilanter [Trelegy Ellipta 100-62.5-25] 1 puff INHALATION RT-DAILY 30 Days #1 each 03/30/22 [Rx] Escitalopram [Lexapro] 20 mg PO DAILY 05/13/22 [History] Cyclobenzaprine [Flexeril] 10 mg PO DAILY PRN 01/30/23 [History] Magnesium 250 mg PO DAILY 01/30/23 [History] busPIRone HCl [Buspar] 10 mg PO BID 01/30/23 [History] Follow up Appointment(s)/Referral(s): Je Recinos MD [STAFF PHYSICIAN] - 1 Week (please call [facility] and schedule an appointment for a wirst check in 1 week. ) Max Amezcua DO [STAFF PHYSICIAN] - Dre Rhodes MD [Primary Care Provider] - 1-2 days Patient Instructions/Handouts: Chest Pain (DC), Pleurisy (DC), How to Stop Smoking (DC), Cigarette Smoking and Your Health (GEN), Emphysema (DC), After Radial Heart Catheterization (GEN) Activity/Diet/Wound Care/Special Instructions: Activity: As tolerated. Take breaks as needed. Diet: Heart healthy and carb consistent diet. Avoid salts, or foods with hidden salts such as canned or boxed foods and frozen dinners. Extra salt makes your heart work harder and traps the fluid in your body for longer. Special Instructions: Take all of your medications as directed and remember to keep all of your doctor's appointments and follow-up as needed. Thank you for allowing us to participate in your care, it was truly a pleasure having you for our patient!!! Discharge Disposition: HOME SELF-CARE
[2023-02-01] MEDS ORDERED: ATORVASTATIN 10 MG TAB PO SCH (09:00)
[2023-02-01] MEDS ORDERED: ASPIRIN 81 MG PO SCH (09:00)
== END 2023-01-31 17:44 | disposition home or self-care (01) ==
LOC: EC 13:32 → 6NMEDSUR 16:35
PROVIDERS: ADMIT Student in an Organized Health Care Education/Training Program; ATTEND Student in an Organized Health Care Education/Training Program
DX: R07.89 Other chest pain (principal); J43.9 Emphysema, unspecified; R09.1 Pleurisy; E11.51 Type 2 diabetes mellitus with diabetic peripheral angiopathy without gangrene; G40.909 Epilepsy, unspecified, not intractable, without status epilepticus; I48.0 Paroxysmal atrial fibrillation; I10 Essential (primary) hypertension; I34.0 Nonrheumatic mitral (valve) insufficiency; R94.31 Abnormal electrocardiogram [ECG] [EKG]; K21.9 Gastro-esophageal reflux disease without esophagitis; M19.90 Unspecified osteoarthritis, unspecified site; E78.5 Hyperlipidemia, unspecified; R00.1 Bradycardia, unspecified; I25.10 Atherosclerotic heart disease of native coronary artery without angina pectoris; R79.89 Other specified abnormal findings of blood chemistry; D64.9 Anemia, unspecified; N40.0 Benign prostatic hyperplasia without lower urinary tract symptoms; F17.200 Nicotine dependence, unspecified, uncomplicated; F32.A Depression, unspecified; F41.9 Anxiety disorder, unspecified; Z79.82 Long term (current) use of aspirin; Z79.01 Long term (current) use of anticoagulants; Z79.899 Other long term (current) drug therapy; Z88.0 Allergy status to penicillin; Z91.030 Bee allergy status; Z91.048 Other nonmedicinal substance allergy status; Z86.14 Personal history of Methicillin resistant Staphylococcus aureus infection; Z87.828 Personal history of other (healed) physical injury and trauma; Z87.01 Personal history of pneumonia (recurrent); Z95.828 Presence of other vascular implants and grafts; Z82.49 Family history of ischemic heart disease and other diseases of the circulatory system; Z82.5 Family history of asthma and other chronic lower respiratory diseases; Z80.9 Family history of malignant neoplasm, unspecified; Z81.1 Family history of alcohol abuse and dependence
CPT/HCPCS: 96376 ×2; 96374; 99285; 36415; 94640 ×2; 94760; 93005; 93306; 93458; 85379; 83880; 80053; 80048; 83690; 83735; 84484; 85025 ×2; 85610; 85730; 71275; G0378 ×2; C1769 ×2; C1894; S4990; J2250; J2270 ×3; J2001; J3010; J1644; Q9967 ×2

== ENCOUNTER → 2023-02-14 | Outpatient (CLI) | payer MEDICARE, OTHER ==
--- NOTE | 2023-02-15 08:48 | PE ---
EXAMINATION TYPE: PET CT fusion skull to thigh DATE OF EXAM: 02/14/2023 CLINICAL INDICATION:Male, 62 years old with history of R91.8; TECHNIQUE: Following the intravenous administration of 12.0 mCi of F-18 FDG, whole body images are performed from the skull base to the midthigh. Images are reviewed on the computer in the coronal, a xial, and sagittal planes. Reconstructed rotating images are created on independent workstation and reviewed on the computer. A non-contrast CT is performed in conjunction with the PET scan. Glucose level 100 mg/dL CT DLP: 356.68 mGycm, Automated exposure control for dose reduction was used. COMPARISON: CT 01/21/2023, PET/CT 02/19/2014, FINDINGS: Mediastinal SUV mean is 1.2. Hepatic parenchyma SUV mean is 1.5. SKULL BASE AND NECK: No suspicious radiotracer activity. CHEST, MEDIASTINUM, AND HILAR REGION: There is severe emphysema changes throughout the lungs with consolidation changes with FDG activity b elow background levels. Pleural-based density within the lingula on 01/21/2023 max SUV 0.5. There is n o suspicious FDG activity identified within the thorax. ABDOMEN AND PELVIS: No suspicious radiotracer activity. MUSCULOSKELETAL STRUCTURES: No suspicious radiotracer activity. OTHER CT: Atherosclerosis of the arterial vasculature. Coronary artery calcifications. Aortobiiliac s tent graft with suspected occluded [place] external iliac arteries and common iliac arteries. Surgical clips to the prostate gland. Severe emphysema changes seen throughout the lungs there is consolidati on. IMPRESSION: Severe emphysema changes with areas of scarring/atelectasis. No abnormal FDG activity identified. Con tinued attention on yearly low-dose lung cancer screening.
== END | disposition home or self-care (01) ==
LOC: RADPETMAIN 11:12
PROVIDERS: ATTEND Family Medicine
DX: J43.9 Emphysema, unspecified (principal); R91.8 Other nonspecific abnormal finding of lung field
CPT/HCPCS: 78815; A9552

== ENCOUNTER 2023-02-24 15:52 | Emergency (ER) | payer MEDICARE, OTHER ==
[2023-02-24 17:11] VITALS: RESP 18
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
[2023-02-24] MEDS ORDERED: LIDOCAINE 1% INJ 10MG/ML (20 ML MDV) SQ ONE (18:50)
[2023-02-24] MEDS ORDERED: SULFAMETHOX-TMP 800-160MG 1 EACH TAB PO STA (19:38)
[2023-02-24 20:28] VITALS: BP 166/87; PULSE 61; TEMP 98.1
== END 2023-02-24 20:44 | disposition home or self-care (01) ==
LOC: EC 15:52
DX: L02.214 Cutaneous abscess of groin (principal); J44.9 Chronic obstructive pulmonary disease, unspecified; E78.5 Hyperlipidemia, unspecified; K21.9 Gastro-esophageal reflux disease without esophagitis; F41.9 Anxiety disorder, unspecified; F32.A Depression, unspecified; F17.200 Nicotine dependence, unspecified, uncomplicated; F12.90 Cannabis use, unspecified, uncomplicated; Z79.899 Other long term (current) drug therapy; Z79.82 Long term (current) use of aspirin; Z88.0 Allergy status to penicillin; Z91.030 Bee allergy status; Z91.048 Other nonmedicinal substance allergy status
CPT/HCPCS: 87070; 87205; 99282; J2001

== ENCOUNTER → 2023-05-15 | Outpatient (CLI) | payer MEDICARE ==
--- NOTE | 2023-05-15 15:41 | CT ---
EXAMINATION TYPE: CT chest w con DATE OF EXAM: 05/15/2023 COMPARISON: 08/01/2014 HISTORY: f/u nodules CT DLP: 196.1 mGycm, Automated exposure control for dose reduction was used. CONTRAST: Performed injected with 100 mL of Isovue 300. TECHNIQUE: Axial images were obtained at 5 mm thick sections. Reconstructed images are reviewed on [employer] computer in the coronal plane. FINDINGS: Portion of the thyroid visualized is normal. Advanced emphysematous changes are present. Large apical bulla and blebs are present. Multiple irregular nodules masses or scarring are present in the upper lung slater. Nodules are delin eated below: 1. There is a 1.6 by 0.8 cm nodule posterior right upper lung field. Previous measurement 2.6 x 1.7 c m. Series 4 image 17 2. There is a 1.8 x 1.0 cm nodule right upper lung field, series 4 image 16. Previous measurement 2.0 x 2.0 cm 3. There is a posterior right upper lung field measures 2.7 x 0.6 cm. Series 4 image 15. This is smal ler in comparison There is a 0.7 cm nodular density periphery right lower lung field which is new. There is pneumonitis in the posterior left apex appears to be old. No enlarged mediastinal or hilar adenopathy is evident. The ascending aorta diameter at the level o f the main pulmonary artery is 3.6 cm. The main pulmonary artery diameter at the bifurcation is 2.[address] sections are obtained through the upper abdomen. Abdomen is essentially unremarkable. IMPRESSION: 1. Diminished size of prior right upper lobe nodules. 2. New subcentimeter nodule right lateral lung base
== END | disposition home or self-care (01) ==
LOC: RADCTMAIN 14:17
PROVIDERS: ATTEND Internal Medicine
DX: R91.8 Other nonspecific abnormal finding of lung field (principal)
CPT/HCPCS: 71260; Q9967

== ENCOUNTER 2023-07-11 02:25 | Emergency (ER) | payer MEDICARE ==
[2023-07-11 03:15] VITALS: TEMP 98.2
[2023-07-11] MEDS ORDERED: KETOROLAC 15 MG/ML 1 ML VIAL IM STA (06:16)
[2023-07-11] MEDS ORDERED: traMADol 50 MG STARTER PACK 3 TAB BTL PO STA (06:16)
[2023-07-11] MEDS ORDERED: traMADol 50 MG TAB PO STA (06:16)
[2023-07-11] MEDS ORDERED: diazePAM 2 MG TAB PO STA (06:16)
[2023-07-11] MEDS ORDERED: IBUPROFEN 600 MG STARTER PACK 4 TAB BTL PO STA (06:16)
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
[2023-07-11 07:03] VITALS: BP 131/76; PULSE 75; RESP 16
== END 2023-07-11 06:44 | disposition home or self-care (01) ==
LOC: EC 02:25
DX: S16.1XXA Strain of muscle, fascia and tendon at neck level, initial encounter (principal); K21.9 Gastro-esophageal reflux disease without esophagitis; M19.90 Unspecified osteoarthritis, unspecified site; J44.89 Other specified chronic obstructive pulmonary disease; E78.5 Hyperlipidemia, unspecified; F41.9 Anxiety disorder, unspecified; F32.A Depression, unspecified; F12.90 Cannabis use, unspecified, uncomplicated; F17.200 Nicotine dependence, unspecified, uncomplicated; Z79.01 Long term (current) use of anticoagulants; Z79.899 Other long term (current) drug therapy; Z79.82 Long term (current) use of aspirin; Z88.0 Allergy status to penicillin; Z91.030 Bee allergy status; Z91.048 Other nonmedicinal substance allergy status; X58.XXXA Exposure to other specified factors, initial encounter
CPT/HCPCS: 99283; 96372; J1885

== ENCOUNTER → 2023-10-30 | Outpatient (CLI) | payer MEDICARE ==
[2023-10-30 13:13] LABS: African American GFR (CKD) >90 (>60 ml/min/1.73 sqM); Blood Urea Nitrogen 13 mg/dL (9-20); Non-African American GFR(CKD) >90 (>60 ml/min/1.73 sqM)
--- NOTE | 2023-11-04 19:13 | CT ---
EXAMINATION TYPE: CT chest w con CT DLP: 423 mGycm, Automated exposure control for dose reduction was used. DATE OF EXAM: 10/30/2023 2:44 PM COMPARISON: Chest CT of 05/15/2023 CLINICAL INDICATION: Male, 63 years old with history of R91.8 abnormal findings lung field; PHH, . Follow up pulmonary nodules. TECHNIQUE: Multiple axial images were obtained through the chest. Sagittal and coronal reformats were created for review. Contrast used:100 mL of Isovue 300 with IV Contrast (None if empty) Oral contrast used: (None if empty) FINDINGS: Advanced emphysematous changes are present. Large apical bulla and blebs are present. Multiple irregular nodules masses or scarring are present in the upper lung slater. Nodules are delineated below: 1. There is a 17 mm x 9 mm posterior right upper lobe, series 4 image 16. Previously 18 mm x 10 mm. 2. Posterior right upper lobe nodule measures 16 mm x 8 mm, series 4, image 17, compared to prior ex am where it was measured at 16 mm x 8 mm. 3. Additional right upper lobe nodule posteriorly is unchanged measuring 26 mm x 6 mm, image 14, ser ies 4. 4. On series 4, image 51, a 7 mm nodule seen which is also stable Fibrous scar in the posterior left apex is old. No sizable mediastinal or hilar lymph nodes. Limited CT sections are obtained through the upper abdomen. Abdomen is essentially unremarkable. IMPRESSION: 1. Stability of right lung nodules. Fleischner Society guidelines, consider additional CT follow-up 18-24 months Follow up recommendations for incidental pulmonary nodules, if there are any, are per Fleischner?s [place] [employer] [employer] or [place]. https://radiopaedia.org/articles/[email or web address]?lang=us
== END | disposition home or self-care (01) ==
LOC: RADCTMAIN 12:17
PROVIDERS: ATTEND Internal Medicine
DX: R91.8 Other nonspecific abnormal finding of lung field (principal)
CPT/HCPCS: 82565; 84520; 71260; 36415; Q9967

== ENCOUNTER 2023-11-27 23:29 | Emergency (ER) | payer MEDICARE ==
[2023-11-27 23:58] VITALS: TEMP 98.6
--- NOTE | 2023-11-28 02:37 | XR ---
EXAM: XR Right Ribs, 2 Views CLINICAL HISTORY: ITS.REASON XR Reason: fall, pain, sob TECHNIQUE: Frontal and oblique views of the right ribs. COMPARISON: No relevant prior studies available. FINDINGS: Lungs: No consolidation or mass. Prominent interstitial markings. Pleural space: No effusion. Bones/joints: No acute fracture. No dislocation. IMPRESSION: No acute osseous abnormalities. Prominent interstitial markings.
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
[2023-11-28] MEDS: IPRATROPIUM-ALBUTEROL 3 ML NEB INHALATION STA (03:03)
[2023-11-28] MEDS: LIDOCAINE 4% PATCH TOPICAL ONE (03:29)
[2023-11-28] MEDS: MORPHINE SULFATE 4 MG/ML SYRINGE IVP STA (03:30)
[2023-11-28] MEDS: ACET/COD 300 MG/30 MG STARTER PACK 6 TAB BTL PO STA (03:30)
[2023-11-28 03:43] VITALS: RESP 18
[2023-11-28 06:17] VITALS: BP 146/84; PULSE 90
== END 2023-11-28 04:00 | disposition home or self-care (01) ==
LOC: EC 23:29
DX: R07.81 Pleurodynia (principal); F17.200 Nicotine dependence, unspecified, uncomplicated; F12.90 Cannabis use, unspecified, uncomplicated; Z88.0 Allergy status to penicillin; Z91.030 Bee allergy status; Z88.8 Allergy status to other drugs, medicaments and biological substances
CPT/HCPCS: 94640; 71101; 99285; 96374; J2270

== ENCOUNTER 2024-01-25 14:40 | Emergency (ER) | payer MEDICARE ==
[2024-01-25 14:45] VITALS: RESP 18; TEMP 98
[2024-01-25] MEDS: ONDANSETRON 4 MG/2 ML VIAL IVP STA (15:08)
[2024-01-25] MEDS: SODIUM CHLORIDE 0.9% 1,000 ML IV STA (15:09)
[2024-01-25 15:10] LABS: Basophils # (A) 0.1 k/uL (0-0.2); Basophils % (A) 1 %; Eosinophils # (A) 0.1 k/uL (0-0.7); Eosinophils % (A) 2 %; HCT 41.9 % (39.0-53.0); HGB 13.7 gm/dL (13.0-17.5); Lymphocytes # (A) 0.8 k/uL (1.0-4.8); Lymphocytes % (A) 16 %; MCHC 32.7 g/dL (31.0-37.0); MCV 88.5 fL (80.0-100.0); Mean Platelet Volume 8.5; Monocytes # (A) 0.2 k/uL (0-1.0); Monocytes % (A) 5 %; Neutrophils # (A) 3.7 k/uL (1.3-7.7); Neutrophils % (A) 74 %; Platelet Count 182 k/uL (150-450); RBC 4.74 m/uL (4.30-5.90); RDW 14.7 % (11.5-15.5)
[2024-01-25 15:29] LABS: ALT 19 U/L (4-49); AST 31 U/L (17-59); African American GFR (CKD) >90 (>60 ml/min/1.73 sqM); Albumin 3.8 g/dL (3.5-5.0); Alkaline Phosphatase 66 U/L (38-126); Anion Gap 6 mmol/L; Blood Urea Nitrogen 8 mg/dL (9-20); Calcium 8.9 mg/dL (8.4-10.2); Carbon Dioxide 28 mmol/L (22-30); Chloride 101 mmol/L (98-107); Glucose 118 mg/dL (74-99); Lipase 61 U/L (23-300); Magnesium 1.6 mg/dL (1.6-2.3); Non-African American GFR(CKD) >90 (>60 ml/min/1.73 sqM); Potassium 3.9 mmol/L (3.5-5.1); Sodium 135 mmol/L (137-145); Total Bilirubin 0.4 mg/dL (0.2-1.3); Total Protein 6.1 g/dL (6.3-8.2)
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
--- NOTE | 2024-01-25 16:40 | CT ---
EXAMINATION TYPE: CT abdomen pelvis w con CT DLP: 522.2 mGycm, Automated exposure control for dose reduction was used. DATE OF EXAM: 01/25/2024 4:23 PM COMPARISON: 01/21/2023 and dating back to 11/08/2013, 10/04/2022 MRI. CLINICAL INDICATION:Male, 63 years old with history of abdominal pain; low abd pain TECHNIQUE: Axial CT abdomen pelvis w con;Sagittal and coronal reformats were created on a separate w orkstation. Contrast used:100 mL of Isovue 300 with IV Contrast, (none if empty) Oral contrast used: without Oral Contrast (none if empty) FINDINGS: LOWER CHEST: 8 mm left lower lobe pulmonary nodule unchanged from 01/21/2023. ABDOMEN LIVER: Unremarkable GALLBLADDER AND BILE DUCTS: Unremarkable. PANCREAS: Similar prominent main pancreatic duct. No masses visualized. SPLEEN: Unremarkable. ADRENAL GLANDS: Unremarkable. KIDNEYS AND URETERS: The right kidney is abnormally positioned inferior and facet. Nonobstructing lef t renal calculi measuring up to 3 mm. Indeterminate left inferior renal poler lesion measuring 27 x 2 5 mm and 68 Hounsfield units previously measuring 25 x 17 mm on 08/10/2022.. PELVIS BLADDER: Multiple bladder stones the right posterior aspect REPRODUCTIVE: Surgical clips in the prostate bed. ABDOMEN & PELVIS STOMACH AND BOWEL: No evidence of bowel obstruction. PERITONEUM/RETROPERITONEUM: No evidence of pneumoperitoneum or free fluid. VASCULATURE: No evidence of aortic aneurysm. The wales distal aorta and common iliac arteries are no t well opacified. Stent grafts is present and is patent flow in the distal aorta and common iliac art eries. There is a left renal stent grafts which appears patent. MUSCULOSKELETAL: No acute osseous abnormalities LYMPH NODES: No gross evidence for lymphadenopathy. SOFT TISSUE/ABDOMINAL WALL: Unremarkable IMPRESSION: 1. No evidence for acute abdominal process. 2. Mildly increased in size of left lower pole renal mass now 27 x 25 mm.. 3. Multiple bladder stones in the right posterior bladder lumen. 4. Post prostatectomy changes no evidence for lymphadenopathy. 5. Patent distal aorta and bilateral common iliac artery as well as the left renal artery stent livia ts. 6. Stable left lower lung pulmonary nodule.
[2024-01-25 16:59] VITALS: BP 134/90; PULSE 60
== END 2024-01-25 16:58 | disposition home or self-care (01) ==
LOC: EC 14:40
DX: R11.2 Nausea with vomiting, unspecified (principal); N28.89 Other specified disorders of kidney and ureter; I10 Essential (primary) hypertension; G89.29 Other chronic pain; F17.200 Nicotine dependence, unspecified, uncomplicated; Z79.82 Long term (current) use of aspirin; Z79.899 Other long term (current) drug therapy; Z88.0 Allergy status to penicillin; Z91.030 Bee allergy status; Z91.09 Other allergy status, other than to drugs and biological substances
CPT/HCPCS: 36415; 80053; 83605; 83690; 83735; 85025; 74177; 99284; 96374; 96361; J2405; Q9967

== ENCOUNTER 2024-04-06 10:27 | Day surgery (SDC) | payer MEDICARE, OTHER ==
[2024-04-05 09:42] VITALS: BMI 16.2
[2024-04-06 11:04] VITALS: TEMP 98
[2024-04-06] MEDS: LACTATED RINGERS 1,000 ML IV SCH (11:06)
[2024-04-06] MEDS: IV FLUID CONTINUATION 1,000 ML IV ONE (11:07)
[2024-04-06] MEDS: LIDOCAINE 1% (10MG/ML) FOR IV START INTRADERMA PRN (11:07)
[2024-04-06] MEDS ORDERED: LIDOCAINE 1% INJ 10MG/ML (20 ML MDV) ONE (11:53)
[2024-04-06] MEDS ORDERED: PROPOFOL 10 MG/ML 20 ML VIAL IV ONE (11:53)
--- NOTE | 2024-04-06 12:12 | P.PCN ---
Date of Procedure: 04/06/24 Procedure(s) Performed: BRIEF HISTORY: Patient is a 63-year-old pleasant white male scheduled for an elective colonoscopy as a part of screening for colon cancer. PROCEDURE PERFORMED: Colonoscopy. With snare polypectomy PREOPERATIVE DIAGNOSIS: Screening for colon cancer. IV sedation per Anesthesia. PROCEDURE: After informed consent was obtained, the patient, was brought into the endoscopy unit. IV sedation was administered by Anesthesia under continuous monitoring. Digital rectal examination was normal. Initially the Olympus CF-160 flexible video colonoscope was then inserted in the rectum, gradually advanced into the cecum without any difficulty. Careful examination was performed as the scope was gradually being withdrawn. Ileocecal valve and the appendiceal orifice were visualized and appeared normal. Prep was excellent. Mucosa of the cecum, ascending colon, transverse colon, descending colon, sigmoid colon, and rectum appeared normal. The distal rectum there was a 7 to 8 mm rectal polyp that was removed by cold snare polypectomy. Retroflexion was performed in the rectum and small internal hemorrhoids were seen. The patient tolerated the procedure well. IMPRESSION: 7-8 mm distal rectal polyp status post snare polypectomy Small internal hemorrhoids RECOMMENDATIONS: Findings of this examination were discussed with the patient as well as his family. He was advised to follow-up with the biopsy results. If the biopsy is adenoma he can have repeat colonoscopy in 5 years
[2024-04-06 12:38] VITALS: RESP 16
[2024-04-06 13:07] VITALS: BP 120/65; PULSE 66
== END 2024-04-06 13:25 | disposition home or self-care (01) ==
LOC: ORWHC2ENDO 10:27
PROVIDERS: ATTEND Internal Medicine Gastroenterology
DX: Z12.11 Encounter for screening for malignant neoplasm of colon
CPT/HCPCS: 45385; 88305

== ENCOUNTER → 2024-04-30 | Outpatient (CLI) | payer MEDICARE, OTHER ==
--- NOTE | 2024-04-30 13:25 | CT ---
EXAMINATION TYPE: CT chest w con CT DLP: 176.1 mGycm, Automated exposure control for dose reduction was used. DATE OF EXAM: 04/30/2024 12:02 PM COMPARISON: CT chest 10/30/2023, 05/15/2023, 01/30/2023, CT low-dose lung 01/21/2023, PET CT 02/14/2023 CLINICAL INDICATION:Male, 63 years old with history of R91.1 LUNG NODULE; PHH, F/U LUNG NODULE TECHNIQUE: Multiple axial images were obtained through the chest following the administration of 100 cc of Isovue 300. . Coronal and sagittal reformats reviewed. FINDINGS: LUNGS/ PLEURA: No pleural effusion or pneumothorax. Advanced emphysematous changes are redemonstrated large apical bullae and blebs present. Stable right upper lobe irregular solid nodular opacities rylan suring 2.0 x 1.0 cm (series 5, 16) and posteriorly a 2.8 x 1.1 cm solid irregular nodule (series 5, i mage 16). Slightly decreased solid appearance of posterior left upper lobe opacity from prior examina tion. Additional stable anterior right lower lobe 7 mm nodular opacity (series 5, image 51). More eric id appearing 6 mm posterior right midlung near the major fissure pulmonary nodule (series 5 image 42) . Increased size of solid-appearing left lower lobe peripheral pulmonary nodule measuring 7 mm (serie s 5, image 60), previously 6 images. AIRWAY: Patent and unremarkable.. HEART: Size within normal limits. No pericardial effusion. MEDIASTINUM: Marginal increased size of right hilar lymph node measuring 2.2 cm, previously 2.0 cm. M ildly increased size of mildly prominent mediastinal lymph nodes with a precarinal lymph node measure s 0.9 cm short axis and a left subcarinal lymph node measuring 0.8 cm short axis. VASCULATURE: No aortic aneurysm. MUSCULOSKELETAL: No acute osseous abnormalities. Multilevel degenerative disc disease. SOFT TISSUES/LYMPH NODES: Unremarkable. LOWER NECK: No significant findings. UPPER ABDOMEN: No left hydronephrosis. Nonobstructive left renal calculi with a 6 mm calculus within left renal pelvis. Previously measured 3 mm IMPRESSION: 1. Redemonstration of stable right upper lobe irregular nodular opacities with slightly decreased eric id appearance of left upper lobe irregular opacity. A right midlung nodular subcentimeter opacity how ever there is then increased size of a left lower lobe lateral subcentimeter nodular density and more appearing solid posterior right midlung subcentimeter nodular density. The new changes are below the sensitivity for PET/CT. Recommend follow-up CT chest with IV contrast in 3 months. 2. Marginal increase in size of right hilar adenopathy and mildly prominent mediastinal lymph nodes. Could represent reactive inflammatory lymph nodes with metastasis not excluded. Recommendation for #1 . 3. Advanced centrilobular and bullous emphysematous redemonstrated. 4. Nonobstructive left renal calculi with one within the left renal pelvis. Has increased in size fro m prior CT. [facility], , 04/30/2024 1:23 PM
== END | disposition home or self-care (01) ==
LOC: RADCTMAIN 11:29
PROVIDERS: ATTEND Internal Medicine
CPT/HCPCS: 71260

== ENCOUNTER 2024-06-12 08:43 | Emergency (ER) | payer MEDICARE, OTHER ==
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
[2024-06-12 09:05] VITALS: TEMP 99.1
[2024-06-12 09:08] LABS: Basophils # (A) 0.1 k/uL (0-0.2); Basophils % (A) 1 %; Eosinophils # (A) 0.1 k/uL (0-0.7); Eosinophils % (A) 1 %; HCT 46.9 % (39.0-53.0); HGB 15.2 gm/dL (13.0-17.5); Lymphocytes # (A) 0.9 k/uL (1.0-4.8); Lymphocytes % (A) 6 %; MCH 29.7 pg (25.0-35.0); MCHC 32.5 g/dL (31.0-37.0); MCV 91.3 fL (80.0-100.0); Mean Platelet Volume 8.1; Monocytes # (A) 0.5 k/uL (0-1.0); Monocytes % (A) 4 %; Neutrophils # (A) 12.5 k/uL (1.3-7.7); Neutrophils % (A) 88 %; Platelet Count 201 k/uL (150-450); RBC 5.13 m/uL (4.30-5.90); RDW 14.7 % (11.5-15.5); WBC 14.2 k/uL (3.8-10.6)
[2024-06-12] MEDS: IPRATROPIUM-ALBUTEROL 3 ML NEB INHALATION STA (09:08)
[2024-06-12] MEDS: methylPREDNISolone SOD SUCCI 125 MG/2 ML VIAL IV STA (09:13)
[2024-06-12 09:16] LABS: INR 1.1 (<1.2); Partial Thromboplastin Time 25.5 sec (22.0-30.0)
--- NOTE | 2024-06-12 09:17 | XR ---
2 view chest HISTORY: Difficulty breathing COMPARISON: 06/23/2010. TECHNIQUE: PA and lateral views chest obtained. FINDINGS: There is hyperinflation of the lungs and flattened diaphragms. There are diffuse fine interstitial op acities unchanged compared to the prior study and likely represent chronic interstitial changes. The heart size is normal. There is no pleural effusion or pneumothorax. There is no airspace consolidation. The osseous structures are intact. IMPRESSION: 1. Marked COPD with probable chronic interstitial changes. 2. No definite acute cardiopulmonary disease. [facility], , 06/12/2024 9:14 AM
[2024-06-12 09:18] LABS: ALT 13 U/L (4-49); AST 23 U/L (17-59); African American GFR (CKD) >90 (>60 ml/min/1.73 sqM); Albumin 4.6 g/dL (3.5-5.0); Alkaline Phosphatase 80 U/L (38-126); Anion Gap 10 mmol/L; Blood Urea Nitrogen 12 mg/dL (9-20); Calcium 9.3 mg/dL (8.4-10.2); Carbon Dioxide 26 mmol/L (22-30); Chloride 104 mmol/L (98-107); Glucose 130 mg/dL (74-99); Magnesium 1.7 mg/dL (1.6-2.3); Non-African American GFR(CKD) >90 (>60 ml/min/1.73 sqM); Potassium 3.7 mmol/L (3.5-5.1); Sodium 140 mmol/L (137-145); Total Bilirubin 0.7 mg/dL (0.2-1.3); Total Protein 7.5 g/dL (6.3-8.2)
[2024-06-12 10:35] VITALS: BP 115/92; PULSE 85; RESP 16
== END 2024-06-12 10:52 | disposition home or self-care (01) ==
LOC: EC 08:43 → SUPCPDRO 08:43 → EC 10:52
DX: J44.9 Chronic obstructive pulmonary disease, unspecified (principal); F17.290 Nicotine dependence, other tobacco product, uncomplicated; Z91.030 Bee allergy status; Z88.0 Allergy status to penicillin; Z91.048 Other nonmedicinal substance allergy status
CPT/HCPCS: 36415; 94640; 93005; 80053; 83605; 83735; 85025; 85610; 85730; 87636; 71046; 99285; 96374; J2919

== ENCOUNTER → 2024-09-06 | Outpatient (CLI) | payer MEDICARE, OTHER ==
[2024-09-06 12:45] LABS: African American GFR (CKD) >90 (>60 ml/min/1.73 sqM); Blood Urea Nitrogen 16 mg/dL (9-20); Non-African American GFR(CKD) >90 (>60 ml/min/1.73 sqM)
--- NOTE | 2024-09-06 13:29 | CT ---
EXAMINATION TYPE: CT chest w con DATE OF EXAM: 09/06/2024 1:15 PM COMPARISON: 04/30/2024, PET 02/14/2023, 05/15/2023 CLINICAL INDICATION: Male, 64 years old with history of R91.8 ABNORMAL LUNG FIELD, nodules, weight lo ss TECHNIQUE: Multiple axial images were obtained through the chest. Sagittal and coronal reformats were created for review. MIP was performed on a separate workstation. Contrast used:100 ml mL of Isovue 300 with IV Contrast (None if empty) Oral contrast used: (None if empty) CT DLP: 174.6 mGycm, Automated exposure control for dose reduction was used. FINDINGS: LUNGS/ PLEURA: * Somewhat similar morphology to the right upper lung anterior scarring/atelectasis/consolidation. T he left upper lung area of groundglass opacity seen on prior areas of more consolidation series 3 paul ge 17. * Increasing size of pulmonary nodule series 3 image 23 measuring 7 mm previously 2 mm. * Stable right middle lobe 6 mm pulmonary nodule series 3 image 42 * Stable right lower lobe anterior nodule measuring 5 mm. * Stable left lower lobe lateral pulmonary nodule measuring 7 mm previously groundglass. Additional scattered pulmonary nodules are seen throughout the lungs which appears smaller and stable . No pleural effusion or pneumothorax. [id number] emphysematous changes are redemonstrated larg e apical bullae and blebs present. * Stable right upper lobe irregular solid nodular opacities measuring 2.0 x 1.0 cm (series 5, 16) an d posteriorly a 2.8 x 1.1 cm solid irregular nodule (series 5, image 16). * Slightly decreased solid appearance of posterior left upper lobe opacity from prior examination. * Additional stable anterior right lower lobe 7 mm nodular opacity (series 5, image 51). solid appea ring 6 mm posterior right midlung near the major fissure pulmonary nodule (series 5 image 42). * Increased size of solid-appearing left lower lobe peripheral pulmonary nodule measuring 7 mm (seri es 5, image 60), previously 6 images. AIRWAY: Patent and unremarkable.. HEART: Size within normal limits. No pericardial effusion. MEDIASTINUM: Right perihilar lymph node has mildly increased now measuring 25 x 15 previously 22 x 14 mm. Stable size of precarinal lymph node measuring 9 mm in short axis. VASCULATURE: No aortic aneurysm. MUSCULOSKELETAL: No acute osseous abnormalities. Multilevel degenerative disc disease.Rotator cuff re pair anchor in the left humerus SOFT TISSUES/LYMPH NODES: Unremarkable. LOWER NECK: No significant findings. UPPER ABDOMEN: No left hydronephrosis. Left renal calculi measuring up to 8 mm no evidence for hydron ephrosis. IMPRESSION: 1. Increased consolidation changes in the left upper lung parenchymal abnormality with increased size /consolidation of right upper lobe nodule concerning for malignancy. Follow-up PET/CT is recommended. 2. Again , marginal increase in size of right right hilar lymph node. Findings remain suspicious. Att ention PET/CT. 3. Moderate to severe centrilobular and bullous emphysematous redemonstrated. 4. Similar nonobstructing left renal calculi. [facility], , 09/06/2024 1:27 PM
== END | disposition home or self-care (01) ==
LOC: RADCTMAIN 11:55
PROVIDERS: ATTEND Internal Medicine
DX: J43.9 Emphysema, unspecified (principal); N20.0 Calculus of kidney; R91.8 Other nonspecific abnormal finding of lung field
CPT/HCPCS: 82565; 84520; 71260; 36415; Q9967

== ENCOUNTER → 2024-09-23 | Outpatient (CLI) | payer MEDICARE, OTHER ==
--- NOTE | 2024-09-24 22:21 | PE ---
EXAMINATION TYPE: PET CT fusion skull to thigh DATE OF EXAM: 09/23/2024 CLINICAL INDICATION:Male, 64 years old with history of R91.8 LUNG NODULE; TECHNIQUE: Following the intravenous administration of 10.68 mCi of F-18 FDG, whole body images are performed from the skull base to the midthigh. Images are reviewed on the computer in the coronal, axial, and sagittal planes. Reconstructed rotating images are created on independent workstation and reviewed on the computer. A non-contrast CT is performed in conjunction with the PET scan. Glucose level 108 mg/dL CT DLP: 208.82 mGycm, Automated exposure control for dose reduction was used. COMPARISON: CT 09/06/2024, 04/30/2024, 01/25/2024, 10/30/2023, 05/15/2023, 01/30/2023, 01/21/2023, PET/CT 05/2023, MRI: None FINDINGS: Mediastinal SUV mean is 1.6. Hepatic parenchyma SUV mean is 1.9. SKULL BASE AND NECK: No suspicious radiotracer activity. CHEST, MEDIASTINUM, AND HILAR REGION: There are 2 adjacent irregular opacities within the right upper lobe measuring 1.9 and 2.7 cm. Demons trates a maximum SUV of 1.4 and 1.7 respectively. These are at background levels. Left upper lobe 2.1 cm irregular opacity with a maximum SUV of 1.1. This is at background levels. A few additional scattered subcentimeter nodules redemonstrated. Specifically a right midlung 6 mm pu lmonary nodule (series 3, image 110) demonstrates FDG activity with a max SUV of 3.4. The remaining n odules do not demonstrate radiotracer activity above background. ABDOMEN AND PELVIS: No suspicious radiotracer activity. MUSCULOSKELETAL STRUCTURES: Healing right L4 transverse process fracture with mild radiotracer activity with a maximum SUV of 4.8 . This is likely related to fracture without evidence for concerning lesion. No other suspicious radi otracer uptake within the osseous structures. OTHER CT: Bilateral carotid bulb calcifications. Multilevel degenerative changes of the spine. Mild a therosclerotic calcification of the aorta and its branches. Aortobiiliac stent graft. Small coronary artery calcifications. Approximately 6 left renal calculi with largest measuring up to 7 mm. The righ t kidney is located within the right pelvis. Prostate coarse calcifications. Multiple calculi layerin g within the urinary bladder. Remote injury to the right iliac crest. Dextrocurvature of the lumbar s pine. Surgical anchor within the left humeral head. Advanced centrilobular emphysematous changes. IMPRESSION: 1. Redemonstration of multiple small pulmonary nodules and additional bilateral upper lobe irregular opacities. Only a right midlung 6 mm pulmonary nodule demonstrates mild FDG activity above backgroun d raises concern for possible developing primary lung cancer versus infectious/inflammatory nodule. T he remaining nodules and opacities demonstrate FDG activity at background levels. Follow-up CT chest in 3 months is recommended. 2. Healing right L4 transverse process fracture with mild FDG activity. No definitive evidence for p athologic fracture. 3. Nonobstructive left renal calculi with urinary bladder calculi. 4. Advanced emphysema changes. [facility], , 09/24/2024 10:19 PM
== END | disposition home or self-care (01) ==
LOC: RADPETMAIN 07:36
PROVIDERS: ATTEND Internal Medicine
DX: R91.8 Other nonspecific abnormal finding of lung field (principal); N20.0 Calculus of kidney; N21.0 Calculus in bladder; J43.9 Emphysema, unspecified
CPT/HCPCS: 78815; A9552

== ENCOUNTER 2024-10-27 07:59 | Inpatient (IN) | payer MEDICARE ==
[2024-10-27] MEDS: ACETAMINOPHEN TAB 500 MG TAB PO STA (08:48)
[2024-10-27] MEDS: SODIUM CHLORIDE 0.9% 1,000 ML IV SCH (08:48)
[2024-10-27] MEDS: methylPREDNISolone SOD SUCCI 125 MG/2 ML VIAL IV STA (08:49)
[2024-10-27 08:51] LABS: Basophils # (A) 0.06 10*3/uL (0.00-0.10); Basophils % (A) 0.6 %; Eosinophils # (A) 0.01 10*3/uL (0.04-0.35); Eosinophils % (A) 0.1 %; HCT 40.8 % (39.6-50.0); HGB 13.7 g/dL (13.0-17.0); Lymphocytes # (A) 0.42 10*3/uL (0.90-5.00); Lymphocytes % (A) 4.1 %; MCH 29.1 pg (27.0-32.0); MCHC 33.6 g/dL (32.0-37.0); MCV 86.8 fL (80.0-97.0); Mean Platelet Volume 9.8 fL (9.5-12.2); Monocytes % (A) 4.9 %; Neutrophils # (A) 9.13 10*3/uL (1.80-7.70); Platelet Count 158 10*3/uL (140-440); RDW 14.3 % (11.5-14.5); WBC 10.15 10*3/uL (4.50-10.00)
[2024-10-27 08:59] LABS: ALT 13 U/L (4-49); AST 20 U/L (17-59); African American GFR (CKD) >90 (>60 ml/min/1.73 sqM); Albumin 3.6 g/dL (3.5-5.0); Alkaline Phosphatase 61 U/L (38-126); Anion Gap 10 mmol/L; Blood Urea Nitrogen 17 mg/dL (9-20); Calcium 8.9 mg/dL (8.4-10.2); Carbon Dioxide 28 mmol/L (22-30); Chloride 98 mmol/L (98-107); Glucose 164 mg/dL (74-99); Non-African American GFR(CKD) >90 (>60 ml/min/1.73 sqM); Partial Thromboplastin Time 23.9 sec (22.0-30.0); Potassium 3.8 mmol/L (3.5-5.1); Prothrombin Time 11.3 sec (10.0-12.5); Sodium 136 mmol/L (137-145); Total Bilirubin 0.5 mg/dL (0.2-1.3); Total Protein 6.1 g/dL (6.3-8.2)
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
[2024-10-27 09:25] LABS: Influenza A Not Detected (Not Detectd); Influenza B Not Detected (Not Detectd); RSV Not Detected (Not Detectd)
--- NOTE | 2024-10-27 09:31 | XR ---
EXAMINATION TYPE: XR chest 2V DATE OF EXAM: 10/27/2024 9:25 AM COMPARISON: 06/12/2024 CLINICAL INDICATION: Male, 64 years old with history of difficulty breathing, TECHNIQUE: XR chest 2V view(s) obtained. FINDINGS: The heart size is normal. The pulmonary vasculature is normal. Patchy infiltrates are present on the right. Hyperinflation is present. IMPRESSION: 1. Patchy infiltrates on the right. Correlate for pneumonia. Follow-up recommended. 2. [facility], Workstation: [facility], 10/27/2024 9:29 AM
[2024-10-27] MEDS ORDERED: ACETAMINOPHEN TAB 325 MG TAB PO PRN (09:43)
[2024-10-27] MEDS ORDERED: PNEUMONIA PROTOCOL UTILIZED 1 EACH MISC PO PRN (09:43)
[2024-10-27] MEDS: IPRATROPIUM-ALBUTEROL 3 ML NEB INHALATION STA (10:04)
[2024-10-27] MEDS ORDERED: ALBUTEROL NEBULIZED 2.5 MG/3 ML INHALATION PRN (11:55)
[2024-10-27] MEDS: AZITHROMYCIN 500 MG in SODIUM CHLORIDE 0.9% 250 ML IVPB STA (12:00)
[2024-10-27] MEDS: IPRATROPIUM-ALBUTEROL 3 ML NEB INHALATION SCH ×2 (12:15→15:26)
[2024-10-27] MEDS: LACTATED RINGERS 1,000 ML IV ONE (13:17)
[2024-10-27] MEDS: LACTATED RINGERS 500 ML IV ONE (13:19)
[2024-10-27] MEDS: RIVAROXABAN 20 MG TAB PO SCH (13:20)
[2024-10-27] MEDS: PANTOPRAZOLE 40 MG TABLET PO SCH (13:21)
[2024-10-27] MEDS: GABAPENTIN 300 MG CAP PO SCH (13:21)
[2024-10-27] MEDS ORDERED: IPRATROPIUM-ALBUTEROL 3 ML NEB INHALATION PRN (13:25)
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
[2024-10-27] MEDS: ESCITALOPRAM 20 MG TAB PO SCH (14:54)
[2024-10-27] MEDS: busPIRone HCl 10 MG TAB PO SCH (14:54)
[2024-10-27] MEDS: FENOFIBRATE 160 MG TAB PO SCH (14:54)
[2024-10-27] MEDS: hydrOXYzine HCL 25 MG TAB PO SCH (22:38)
[2024-10-27] MEDS: ATORVASTATIN 10 MG TAB PO SCH (22:39)
[2024-10-27] MEDS: TAMSULOSIN 0.4 MG CAP.ER.24H PO SCH (22:39)
--- NOTE | 2024-10-28 07:15 | XR ---
EXAMINATION TYPE: XR chest 2V DATE OF EXAM: 10/28/2024 6:57 AM COMPARISON: None. CLINICAL INDICATION: Male, 64 years old with history of pneumonia, TECHNIQUE: XR chest 2V view(s) obtained. FINDINGS: The heart size is normal. The pulmonary vasculature is normal. Diffuse increased lung markings are present bilaterally may be on the basis of pulmonary fibrosis. Th ere is some more focal infiltrate within the right upper lobe. Correlate for pneumonia. Hyperinflatio n and flattened diaphragms is present compatible with COPD. Small left pleural effusion may be presen t. IMPRESSION: 1. Right upper lobe infiltrate. Correlate for pneumonia. Findings are worsening from comparison. 2. Mild increased lung markings bilaterally 3. Small left pleural effusion. 4. [facility], , 10/28/2024 7:13 AM
[2024-10-28 08:33] LABS: Basophils # (A) 0.01 X 10*3/uL (0.00-0.10); Basophils % (A) 0.1 %; Eosinophils # (A) 0 X 10*3/uL (0.04-0.35); Eosinophils % (A) 0 %; HCT 34.8 % (39.6-50.0); HGB 11.4 g/dL (13.0-17.0); Lymphocytes # (A) 0.41 X 10*3/uL (0.90-5.00); Lymphocytes % (A) 4.4 %; MCH 29.5 pg (27.0-32.0); MCHC 32.8 g/dL (32.0-37.0); MCV 89.9 FL (80.0-97.0); Mean Platelet Volume 11.2 FL (9.5-12.2); Monocytes # (A) 0.55 X 10*3/uL (0.20-1.00); Monocytes % (A) 5.8 %; NRBC Per 100 WBC 0 X 10*3/uL (0.00-0.01); Neutrophils # (A) 8.41 X 10*3/uL (1.80-7.70); Neutrophils % (A) 89.4 %; Platelet Count 167 X 10*3/uL (140-440); RBC 3.87 X 10*6/uL (4.40-5.60); RDW 14.6 % (11.5-14.5); WBC 9.41 X 10*3/uL (4.50-10.00)
[2024-10-28] MEDS: SYMBICORT 160-4.5 MCG INHALER INHALATION SCH (09:03)
[2024-10-28] MEDS: TIOTROPIUM 2.5 MCG INHALER INHALATION SCH (09:03)
[2024-10-28 09:07] LABS: BUN/Creat Ratio 17.71 Ratio (12.00-20.00); Blood Urea Nitrogen 12.4 mg/dL (9.0-27.0); Glucose 140 mg/dL (70-110)
[2024-10-28 09:08] LABS: Calcium 8.2 mg/dL (8.7-10.3); Carbon Dioxide 24.8 mmol/L (21.6-31.8); Chloride 108 mmol/L (96-109); Potassium 4.2 mmol/L (3.5-5.5); Sodium 140 mmol/L (135-145)
[2024-10-28] MEDS: AZITHROMYCIN 500 MG TAB PO SCH (09:19)
[2024-10-28] MEDS: cefTRIAXone 2 GM in DEXTROSE 5% IN WATER 50 ML IVPB SCH (09:19)
[2024-10-28] MEDS: HYDROcodone/APAP 7.5-325MG 1 EACH TAB PO PRN (09:27)
[2024-10-28 11:28] VITALS: BMI 16.5
--- NOTE | 2024-10-28 13:33 | P.PN ---
Subjective Progress Note Date: 10/28/24 Subjective: Patient seen and examined at bedside. No acute events overnight. Claims that his breathing is improved. Still having some productive cough. Right-sided chest pain has improved. Shortness of breath is improving. Pertinent positives and negatives as discussed above, a complete review of systems was performed and all other systems are negative. Vitals Signs Reviewed. General: Nontoxic, no distress, appears at stated age Derm: Warm, dry Head: Atraumatic, normocephalic, symmetric Eyes: EOMI, no lid lag, anicteric sclera Mouth: No lip lesion, mucus membranes moist Cardiovascular: S1S2 reg, no murmur Lungs: Scattered wheezing, right upper lung Rales, no accessory muscle use Abdominal: Soft, nontender to palpation, no guarding, no appreciable organomegaly Ext: No gross muscle atrophy, no edema, no contractures Neuro: CN II-XI grossly intact, no focal neuro deficits Psych: Alert, oriented, appropriate affect Data Reviewed Today: Pertinent Labs: WBC 9.41, hemoglobin 11.4, sodium 140, creatinine 0.7, urine Legionella negative Imaging: Chest x-ray independently interpreted, shows right upper lobe patchy opacities Assessment and Plan: Active: Sepsis secondary to community-acquired pneumonia Acute on chronic hypoxic respiratory failure secondary to above - Continue ceftriaxone 2 g every 24 hours IV, azithromycin 500 p.o. daily - Blood cultures, sputum cultures pending, procalcitonin negative - DC IV fluids - DuoNebs every 2 hours as needed, 4 times daily scheduled - Was given steroids in the ER, will hold for now - Continue to wean oxygen COPD, not in exacerbation - Continue Symbicort twice daily, Spiriva daily -Hold steroids for now Chronic: Paroxysmal atrial fibrillation Dyslipidemia Neuropathy GERD BPH Anxiety/depression DVT ppx: Xarelto Code status: Full code Anticipated discharge place: Home Anticipated discharge time: Likely tomorrow Objective - Vital Signs Vital signs: Vital Signs Temp 99.1 F 10/28/24 07:15 Pulse 70 10/28/24 12:38 Resp 20 10/28/24 07:15 BP 114/70 10/28/24 07:15 Pulse Ox 96 10/28/24 09:05 FiO2 Intake & Output 10/27/24 10/28/24 10/28/24 18:59 06:59 18:59 Intake Total 460 Balance 460 Weight 55.338 kg 55.338 kg Intake: Intake, IV Titration 260 Amount Sodium Chloride 0.9% 1, 260 000 ml @ 130 mls/hr IV . [id number] [facility] Rx#:[id number] Oral 200 Other: # Voids 3 - Labs CBC & Chem 7: 10/28/24 04:49 10/28/24 04:49 Labs: Abnormal Lab Results - Last 24 Hours (Table) 10/28/24 10/28/24 Range/Units 04:49 04:49 RBC 3.87 L (4.40-5.60) X 10*6/uL Hgb 11.4 L (13.0-17.0) g/dL Hct 34.8 L (39.6-50.0) % RDW 14.6 H (11.5-14.5) % Neutrophils # 8.41 H (1.80-7.70) X 10*3/uL Lymphocytes # 0.41 L (0.90-5.00) X 10*3/uL Eosinophils # 0 L (0.04-0.35) X 10*3/uL Glucose 140 H (70-110) mg/dL Calcium 8.2 L (8.7-10.3) mg/dL Microbiology - Last 24 Hours (Table) 10/27/24 14:58 Gram Stain - Preliminary Sputum Sputum Culture - Preliminary
[2024-10-28 13:48] VITALS: BP 112/65; PULSE 57; RESP 17; TEMP 99.3
--- NOTE | 2024-10-28 14:26 | P.DS ---
Providers Date of admission: 10/27/24 09:48 Expected date of discharge: 10/28/24 Attending physician: Delmar Giron Primary care physician: Dre Rhodes MD Hospital Course: Discharge Diagnosis: Sepsis secondary to community-acquired pneumonia Acute on chronic hypoxic respiratory failure secondary to above COPD, not in exacerbation Paroxysmal atrial fibrillation Dyslipidemia Neuropathy GERD BPH Anxiety/depression Hospital Course: 62-year-old male with history of paroxysmal A-fib, hypertension, dyslipidemia, COPD, chronic hypoxic respiratory failure on 2 L, nicotine dependence, peripheral vascular disease presenting with shortness of breath, productive cough, and fevers. In the ED, temperature was 101.9, pulse 109, respiratory 26, blood pressure 114/67, saturating at 77% on room air. WBC 10.15, sodium 136, creatinine 0.67, lactic acid 1.4, Troponin negative, respiratory viral panel negative. Chest x-ray independently interpreted, shows right-sided multifocal opacities. EKG independently interpreted, shows sinus rhythm with nonspecific T wave changes in anterior leads. Patient received Solu-Medrol 125 mg IV, DuoNebs, IV ceftriaxone IV azithromycin in the ED. Also given normal saline at 130 cc an hour. Patient admitted for community-acquired pneumonia and acute hypoxic respiratory failure. Oxygen was weaned down to home level. Patient claims that his respiratory status is improved. Being discharged on oral antibiotics. Follow-up with pulmonology and PCP. Patient also inquiring about palliative care, will need to be initiated through PCP. Patient seen and examined at bedside. Vital signs reviewed and stable. General: nontoxic, no distress, appears at stated age, chronically ill-appearing Derm: warm, dry Head: atraumatic, normocephalic, symmetric Eyes: EOMI, no lid lag, anicteric sclera, pupils equal round reactive to light ENT: Nose and ears atraumatic Neck: No thyromegaly, supple Mouth: no lip lesion, mucus membranes moist Cardiovascular: S1S2 reg, no murmur, no edema Lungs: Bilateral Rales, worse on the right, no accessory muscle use, supplemental oxygen Abdominal: soft, nontender to palpation, no guarding, no appreciable organomegaly Ext: no gross muscle atrophy, muscle strength muscle strength 5 out of 5 in all 4 extremities, no contractures Neuro: CN II-XII grossly intact Psych: Alert, oriented, appropriate affect A total of 36 minutes of time were spent preparing this complex discharge summary. Patient was discharged on 10/28/2024 at 1357. Patient Condition at Discharge: Stable Plan - Discharge Summary Discharge Rx Participant: Yes New Discharge Prescriptions: New Cefdinir [Omnicef] 300 mg PO Q12HR #6 capsule Azithromycin [Zithromax] 500 mg PO DAILY #1 tab Continue Fenofibrate [Lofibra] 160 mg PO DAILY Omeprazole 40 mg PO DAILY Atorvastatin [Lipitor] 10 mg PO HS Rivaroxaban [Xarelto] 20 mg PO DAILY Metoprolol Tartrate [Lopressor] 25 - 50 mg PO BID PRN PRN Reason: high BP Albuterol Sulfate [Proair Hfa] 2 puff INHALATION RT-Q6H PRN #1 each PRN Reason: Shortness Of Breath Escitalopram [Lexapro] 20 mg PO DAILY Cyclobenzaprine [Flexeril] 10 mg PO BID PRN PRN Reason: Severe Pain (Scale 7 To 10) Tamsulosin HCl [Flomax] 0.4 mg PO HS Gabapentin [Neurontin] 300 mg PO BID hydrOXYzine HCL [Atarax] 25 mg PO HS Fluticasone/Umeclidin/Vilanter [Trelegy Ellipta 100-62.5-25] 1 puff INHALATION RT-DAILY 30 Days #1 each busPIRone HCl [Buspar] 10 mg PO BID HYDROcodone/APAP 7.5-325MG [[place] 7.5-325] 1 tab PO BID PRN PRN Reason: Pain Discharge Medication List Fenofibrate [Lofibra] 160 mg PO DAILY 11/07/13 [History] Atorvastatin [Lipitor] 10 mg PO HS 05/23/15 [History] Omeprazole 40 mg PO DAILY 05/23/15 [History] Metoprolol Tartrate [Lopressor] 25 - 50 mg PO BID PRN 03/24/20 [History] Rivaroxaban [Xarelto] 20 mg PO DAILY 03/24/20 [History] Tamsulosin HCl [Flomax] 0.4 mg PO HS 01/25/21 [History] Gabapentin [Neurontin] 300 mg PO BID 12/05/21 [History] hydrOXYzine HCL [Atarax] 25 mg PO HS 03/28/22 [History] Albuterol Sulfate [Proair Hfa] 2 puff INHALATION RT-Q6H PRN #1 each 03/30/22 [Rx] Fluticasone/Umeclidin/Vilanter [Trelegy Ellipta 100-62.5-25] 1 puff INHALATION RT-DAILY 30 Days #1 each 03/30/22 [Rx] Escitalopram [Lexapro] 20 mg PO DAILY 05/13/22 [History] Cyclobenzaprine [Flexeril] 10 mg PO BID PRN 01/30/23 [History] busPIRone HCl [Buspar] 10 mg PO BID 01/30/23 [History] HYDROcodone/APAP 7.5-325MG [[place] 7.5-325] 1 tab PO BID PRN 10/27/24 [History] Azithromycin [Zithromax] 500 mg PO DAILY #1 tab 10/28/24 [Rx] Cefdinir [Omnicef] 300 mg PO Q12HR #6 capsule 10/28/24 [Rx] Follow up Appointment(s)/Referral(s): Belia Ponce MD [STAFF PHYSICIAN] - 1 Week Dre Rhodes MD [Primary Care Provider] - 1-2 days Patient Instructions/Handouts: Community Acquired Pneumonia (DC) Activity/Diet/Wound Care/Special Instructions: Please see PCP and pulmonology. Discharge Disposition: HOME SELF-CARE
== END 2024-10-28 16:10 | disposition home or self-care (01) | DRG 871 ==
LOC: EC 07:59 → 4SSUR 09:48
PROVIDERS: ADMIT Student in an Organized Health Care Education/Training Program; ATTEND Student in an Organized Health Care Education/Training Program
DX: A41.9 Sepsis, unspecified organism (principal); J18.9 Pneumonia, unspecified organism; J96.21 Acute and chronic respiratory failure with hypoxia; Z51.5 Encounter for palliative care; J44.0 Chronic obstructive pulmonary disease with (acute) lower respiratory infection; G40.409 Other generalized epilepsy and epileptic syndromes, not intractable, without status epilepticus; I48.0 Paroxysmal atrial fibrillation; F32.A Depression, unspecified; I10 Essential (primary) hypertension; I73.9 Peripheral vascular disease, unspecified; Z11.52 Encounter for screening for COVID-19; E78.5 Hyperlipidemia, unspecified; F41.9 Anxiety disorder, unspecified; K21.9 Gastro-esophageal reflux disease without esophagitis; G62.9 Polyneuropathy, unspecified; N40.0 Benign prostatic hyperplasia without lower urinary tract symptoms; Z79.01 Long term (current) use of anticoagulants; Z79.899 Other long term (current) drug therapy; Z85.528 Personal history of other malignant neoplasm of kidney; Z87.891 Personal history of nicotine dependence; Z88.0 Allergy status to penicillin; Z91.030 Bee allergy status; Z86.14 Personal history of Methicillin resistant Staphylococcus aureus infection
CPT/HCPCS: 36415; 71046; 80048; 80053; 83605; 84145; 84484; 85025; 85610; 85730; 87040; 87070; 87077; 87186; 87205; 87449; 87636; 93005; 94640; 96361; 96365; 96366; 96368; 96375; 99291